=== PATIENT | male | born 1970 | race Caucasian/White ===

== ENCOUNTER 2017-08-18 03:14 | Inpatient (IN) | payer MEDICARE, OTHER ==
[~2017-08-18] VITALS: Ht 182.9 cm; Wt 110.7 kg
[~2017-08-18 03:14] MED LIST: CAPT12.53 PO; DIGO125T PO; FURO-145 PO; HYDR-4075 PO; INSU100V27 SQ; INSU100V7 SQ; ISOS30TA6 PO; METO25TA20 PO; SPIR25TA PO; WARF5TAB77 PO
--- NOTE | 2017-08-18 03:20 | NUR ---
PT AMULATORY TO ER BED 5 C/O "CP SINCE YESTERDAY AFTERNOON" PT STATES RECENTLY D/C FROM [facility] FOR PNA. PT AOX3 RR EVEN AND UNLABORED. NO SOB NOTED. NAD NOTED. NO NVD AT THIS TIME. PT GOWNED AND PLACED ON MONITOR WAITING FOR MD ALFARO.
--- NOTE | 2017-08-18 03:25 | NUR ---
DR. MEDINA AT BEDSIDE FOR EVAL.
[2017-08-18] MEDS ORDERED: MORPHINE SULFATE INJ 2 MG/ML DISP.SYRIN IV ONE (03:30)
[2017-08-18] MEDS ORDERED: ASPIRIN 325 MG TABLET PO ONE (03:30)
[2017-08-18] MEDS ORDERED: ONDANSETRON HCL/PF 4 MG/2 ML VIAL IVP ONE (03:30)
[2017-08-18] MEDS ORDERED: MORPHINE SULFATE INJ 4 MG/ML DISP.SYRIN ONE (03:48)
[2017-08-18] MEDS ORDERED: ONDANSETRON HCL/PF 4 MG/2 ML VIAL ONE (03:48)
[2017-08-18] MEDS ORDERED: ASPIRIN 325 MG TABLET ONE (03:49)
--- NOTE | 2017-08-18 03:53 | NUR ---
RADIOLOGY AT BEDSIDE FOR CXR
[2017-08-18 03:57] LABS: BASOPHILS % (AUTO) 0.5 % (0.0-2.0); EOSINOPHILS # (AUTO) 0.2 /CMM (0.0-0.7); EOSINOPHILS % (AUTO) 2.3 % (0.0-6.0); HEMATOCRIT 26 % (39-51); HEMOGLOBIN 9.1 g/dL (13.5-17.5); LYMPHOCYTES # (AUTO) 1.3 /CMM (0.8-4.8); LYMPHOCYTES % (AUTO) 15.3 % (20.0-44.0); MEAN CORPUSCULAR HEMOGLOBIN 30 PG (26.0-33.0); MEAN CORPUSCULAR HGB CONC 34 g/dl (31.0-36.0); MEAN CORPUSCULAR VOLUME 88 fL (80-96); MONOCYTES # (AUTO) 0.9 /CMM (0.1-1.30); MONOCYTES % (AUTO) 10.4 % (2.0-12.0); NEUTROPHILS # (AUTO) 6.2 /CMM (1.8-8.9); NEUTROPHILS % (AUTO) 71.5 % (43.0-81.0); PLATELET COUNT (AUTO) 228 /CMM (150-450); RDW COEFFICIENT OF VARIATION 16.7 (11.5-15.0); RED BLOOD CELL COUNT(AUTO) 2.99 MIL/uL (4.5-6.0); WHITE BLOOD COUNT (AUTO) 8.7 K/uL (4.3-11.0)
[2017-08-18 04:11] LABS: INR 1.1 (0.87-1.13)
[2017-08-18 04:12] LABS: ALBUMIN 2.9 g/dL (3.4-5.0); BILIRUBIN,DIRECT 0.2 mg/dL (0.0-0.2); BILIRUBIN,TOTAL 0.5 mg/dL (0.2-1.0); CALCIUM, SERUM 8.6 mg/dL (8.5-10.1); TOTAL PROTEIN, SERUM 7.8 g/dL (6.4-8.2)
[2017-08-18 04:15] LABS: TROPONIN I 0.045 ng/mL (0.00-0.056)
--- NOTE | 2017-08-18 05:26 | NUR ---
REPORT GIVEN TO YANNI HURLEY FOR TELE BED 322-1
[2017-08-18 06:10] VITALS: BP 121/77
--- NOTE | 2017-08-18 06:10 | NUR ---
PT TRANSFERRED PER ACLS PROTOCOL.
--- NOTE | 2017-08-18 06:15 | NUR ---
RN NOTES ADMITTED A 47 YRS OLD, MALE PT FROM ER WITH PRIMARY DIAGNOSIS OF CHEST PAIN UNDER DR LUIS. PT IS ALERT AND ORIENTED X3, LUISA NAUSEA AND VOMITING. CHEST PAIN AT TOLERABLE LEVEL AT THIS TIME. VITAL SIGNS STABLE. ATTACHED TO TELEMONITOR WHICH READS A. FIB AT 111. SKIN AND BODY ASSESSMENT DONE, SKIN CLEAR AND INTACT. 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 HD CATH ON LEFT UPPER CHEST WALL CLEAN, DRY AND INTACT. IV ACCESS ON LEFT AC PATENT AND INTACT. AWAITING FOR ADMISSION ORDERS FROM DR LUIS. KEPT COMFORTABLE AND ATTENDED. KEPT BED IN THE LOWEST POSITION, 2 SIDE RAILS UP WITH CALL LIGHT WITH IN REACH. SAFETY MEASURES AND FALL PRECAUTION OBSERVED. ENDORSED TO MORNING RN FOR CONTINUITY OF CARE.
--- NOTE | 2017-08-18 07:00 | NUR ---
RECEIVED BEDSIDE SBAR REPORT ON PATIENT. PATIENT IS A NEW ADMISSION. NO ADMISSION ORDERS YET. PATIENT COMPLAINS OF PAIN RATING 8/10 IN BLE AND LB. NO PAIN MEDICATIONS AVAILABLE AT THIS TIME. DR. MONROE MANAGER CUSTOM AT THE BEDSIDE. PATIENT'S BP ELEVATED AT 163/[address] MONROE INFORMED. AWAITING FOR ADMISSION ORDERS. PATIENT IS A/O X3, ANXIOUS, AWAKE AND RESPONSIVE. PATIENT IS BLIND ON RIGHT EYE AND HAS VERY POOR VISION IN L/EYE. PATIENT IS IN BED. BED IS LOCKED IN LOWEST POSITION, SIDE RAILS UP X3, BED ALARM IS ON. REINA LIGHT WITHIN REACH. EDUCATED TO CALL FOR ASSISTANCE USING THE CALL LIGHT. VERBALIZED UNDERSTANDING. ALL NEEDS ARE MET AT THIS TIME, WILL CONTINUE TO ASSESS/MONITOR THROUGHOUT THE SHIFT.
--- NOTE | 2017-08-18 07:10 | NUR ---
ADMISSION ORDERS MISSING. CALLED DR LUIS FOR ADMISSION ORDERS.
[2017-08-18 08:00] VITALS: BP 163/108
[2017-08-18] MEDS ORDERED: HYDROCODONE/APAP 5/325MG 1 EACH TABLET PO PRN (08:00)
[2017-08-18] MEDS ORDERED: ONDANSETRON HCL/PF 4 MG/2 ML VIAL IVP PRN (08:00)
[2017-08-18] MEDS ORDERED: ZOLPIDEM TARTRATE 5 MG TABLET PO PRN (08:00)
[2017-08-18] MEDS ORDERED: INSULIN REGULAR, HUMAN 100 UNIT/ML 3 ML VIAL SQ PRN (08:00)
[2017-08-18] MEDS ORDERED: ACETAMINOPHEN 325 MG TABLET PO PRN (08:00)
[2017-08-18] MEDS ORDERED: DEXTROSE 50%-WATER 50 ML DISP.SYRIN IV PRN (08:00)
[2017-08-18] MEDS ORDERED: Z GUARD REMEDY 2 OZ OINT TP PRN (08:00)
[2017-08-18] MEDS ORDERED: MORPHINE SULFATE INJ 2 MG/ML DISP.SYRIN IV PRN (08:00)
[2017-08-18] MEDS ORDERED: MAG HYDROX/AL HYDROX/SIMETH 30 ML UDC PO PRN (08:00)
[2017-08-18] MEDS ORDERED: MAGNESIUM HYDROXIDE 30 ML UDC PO PRN (08:00)
[2017-08-18 08:26] LABS: MAGNESIUM 2.1 mg/dL (1.8-2.4)
[2017-08-18 08:42] LABS: THYROID STIMULATING HORMONE 0.626 uIU/mL (0.358-3.74)
[2017-08-18] MEDS ORDERED: FUROSEMIDE 20 MG TABLET PO SCH ×2 (09:00)
[2017-08-18] MEDS ORDERED: CAPTOPRIL 12.5 MG TABLET PO SCH ×2 (09:00)
[2017-08-18] MEDS ORDERED: SPIRONOLACTONE 25 MG TABLET PO SCH ×2 (09:00)
[2017-08-18] MEDS ORDERED: DIGOXIN 0.125 MG TABLET PO SCH ×2 (09:00)
[2017-08-18] MEDS ORDERED: METOPROLOL TARTRATE 25 MG TABLET PO SCH ×2 (09:00)
[2017-08-18] MEDS ORDERED: hydrALAZINE HCL 10 MG TABLET PO SCH (09:00)
[2017-08-18] MEDS ORDERED: INSULIN LISPRO 14 UNIT SQ SCH ×2 (09:00)
[2017-08-18] MEDS ORDERED: ISOSORBIDE MONONITRATE (30MG) 30 MG TAB.SR.24H PO SCH ×2 (09:00)
[2017-08-18] MEDS: BLOOD SUGAR DIAGNOSTIC 1 EACH STRIP IN SCH ×4 (09:22→22:30)
[2017-08-18] MEDS: hydrALAZINE HCL 10 MG TABLET PO SCH ×4 (09:23→20:33)
[2017-08-18] MEDS: MORPHINE SULFATE INJ 4 MG/ML DISP.SYRIN IV PRN ×2 (09:27→20:33)
--- NOTE | 2017-08-18 09:33 | NUR ---
BG 134 MG DL. PATIENT REFUSED COVERAGE. PATIENT COMPLAINED OF SEVERE PAIN THROUGHOUT THE BODY. PRN PAIN MEDICATION ADMINISERED ORDERED. WILL REASSESS THE PAIN LEVEL.
[2017-08-18] MEDS ORDERED: CALC667C6 PO (09:38)
[2017-08-18] MEDS ORDERED: ISOS5TAB3 PO (09:38)
[2017-08-18] MEDS ORDERED: APIX2.5T PO (09:38)
[2017-08-18] MEDS ORDERED: OSEL30CA PO (09:38)
[2017-08-18] MEDS ORDERED: CARV25TA PO (09:38)
[2017-08-18] MEDS ORDERED: ATOR40TA PO (09:38)
[2017-08-18] MEDS ORDERED: ASPI-1152 PO (09:38)
[2017-08-18] MEDS: APIXABAN 2.5 MG TABLET PO SCH ×2 (12:08→18:15)
--- NOTE | 2017-08-18 12:33 | NUR ---
PATIENT COMPLAINED OF ACUTE SEVERE PAIN. NORCO ADMINISTERED ORDERED.
[2017-08-18] MEDS ORDERED: EPOETIN ALFA (10,000 UNIT) 10,000 UNIT/ML VIAL SQ ONE ×2 (14:00→17:30)
[2017-08-18 16:00] VITALS: BP 147/86
--- NOTE | 2017-08-18 17:30 | NUR ---
HD AT THE BEDSIDE.
[2017-08-18] MEDS ORDERED: WARFARIN SODIUM 5 MG TABLET PO SCH (18:00)
--- NOTE | 2017-08-18 18:23 | NUR ---
BG 131MG/DL. PATIENT REFUSED COVERAGE.
--- NOTE | 2017-08-18 18:47 | NUR ---
PATIENT IS A/O X3, ANXIOUS, AWAKE AND RESPONSIVE. HEMODIALYSIS AT THE BEDSIDE. PATIENT IS BLIND ON RIGHT EYE AND HAS VERY POOR VISION IN L/EYE. PATIENT IS IN BED. BED IS LOCKED IN LOWEST POSITION, SIDE RAILS UP X3, BED ALARM IS ON. REINA LIGHT WITHIN REACH. EDUCATED TO CALL FOR ASSISTANCE USING THE CALL LIGHT. VERBALIZED UNDERSTANDING. ALL NEEDS ARE MET AT THIS TIME, WILL ENDORSE TO THE CLINICAL RESEARCH MONITOR NURSE FOR LYRIC.
--- NOTE | 2017-08-18 19:30 | NUR ---
RN OPENING NOTE RECEIVED PATIENT IN BED, JUST COMPLETED HEMODIALYSIS, NOTED WITH NO SOB, BREATHING EVEN AND UNLABORED, DENIES CHEST PAIN, IN NO ACUTE DISTRESS. ALL PATIENT'S NEEDS ATTENDED TO AT THIS TIME. CALL LIGHT PLACED WITHIN EASY REACH. WILL CONTINUE TO MONITOR PT.
[2017-08-18 20:00] VITALS: BP 168/99
[2017-08-18] MEDS: INSULIN GLARGINE, 100 UNIT/ML CARTRIDGE SQ SCH (22:00)
[2017-08-18] MEDS ORDERED: INSULIN GLARGINE HUM REC ANLOG 35 UNIT SQ SCH (22:00)
[2017-08-18] MEDS ORDERED: ALPRAZOLAM 0.25 MG TABLET ONE (22:28)
[2017-08-18] MEDS ORDERED: ALPRAZOLAM 0.25 MG TABLET PO ONE (22:30)
--- NOTE | 2017-08-18 22:30 | NUR ---
RN NOTE PATIENT REFUSED REG INSULIN PER [facility] MEDICATION. EXPLAINED RISKS AND BENEFITS TO PATIENT X 3 BUT PATIENT CONTINUES TO REFUSE MEDICATION. PER PATIENT HIS DM IS CONTROLLED. RESPECTED PATIENT'S DECISION. WILL CONTINUE TO MONITOR.
[2017-08-19] VITALS: BP 125/75
[2017-08-19 04:00] VITALS: BP 151/84
[2017-08-19] MEDS: MORPHINE SULFATE INJ 4 MG/ML DISP.SYRIN IV PRN ×2 (04:04→10:47)
--- NOTE | 2017-08-19 05:43 | NUR ---
PT RF AT THIS TIME EKG, YANNI SALCEDO
--- NOTE | 2017-08-19 05:47 | NUR ---
RN NOTE SPOKE WITH ZAC ROTHMAN, PATIENT REFUSED EKG AT THIS TIME. WILL SEND SOMEONE ELSE IN THE DAY SHIFT.
--- NOTE | 2017-08-19 07:20 | NUR ---
RN CLOSING NOTES PATIENT IN BED, ALERT AND ORIENTED X 3, NO SOB NOTED, NO C/O PAIN, IN NO ACUTE DISTRESS. AL PATIENT'S NEEDS ATTENDED TO THROUGHOUT THE SHIFT, DUE MEDICATION GIVEN PERMITTED BY PATIENT. CALL LIGHT PLACED WITHIN EASY REACH. PATIENT UNDER TELE MONITORING, SINUS TACHY @ 107. WILL ENDORSE TO AM SHIFT NURSE FOR CONTINUITY OF CARE.
--- NOTE | 2017-08-19 07:28 | NUR ---
CHIP CRUSHER OPERATOR NOTE RECEIVED BEDSIDE SBAR REPORT ON PATIENT. PATIENT IS A/O X3, ANXIOUS, AWAKE AND RESPONSIVE. PATIENT IS IN BED. BED IS LOCKED IN LOWEST POSITION, SIDE RAILS UP X3, BED ALARM IS ON. FORM RAISER AT THE BEDSIDE. REINA LIGHT WITHIN REACH. EDUCATED TO CALL FOR ASSISTANCE USING THE CALL LIGHT. VERBALIZED UNDERSTANDING. ALL NEEDS ARE MET AT THIS TIME. EXTERNAL HEART MONITOR READING AFIB 113. WILL CONTINUE TO ASSESS/MONITOR THROUGHOUT THE SHIFT.
[2017-08-19] MEDS: BLOOD SUGAR DIAGNOSTIC 1 EACH STRIP IN SCH ×4 (07:31→21:30)
--- NOTE | 2017-08-19 07:56 | NUR ---
DOCUMENTED ALPRAZOLAM FROM PREVIOUS SHIFT NON-ADMINISTERED TO RID OF THE RED POST-DUE REMINDER.
[2017-08-19 08:00] VITALS: BP 140/90
[2017-08-19 08:48] LABS: BASOPHILS # (AUTO) 0.1 /CMM (0.0-0.2); BASOPHILS % (AUTO) 0.8 % (0.0-2.0); EOSINOPHILS # (AUTO) 0.2 /CMM (0.0-0.7); EOSINOPHILS % (AUTO) 2.4 % (0.0-6.0); HEMATOCRIT 28 % (39-51); HEMOGLOBIN 9.7 g/dL (13.5-17.5); LYMPHOCYTES # (AUTO) 1.5 /CMM (0.8-4.8); LYMPHOCYTES % (AUTO) 20.4 % (20.0-44.0); MEAN CORPUSCULAR HEMOGLOBIN 31 PG (26.0-33.0); MEAN CORPUSCULAR HGB CONC 34 g/dl (31.0-36.0); MEAN CORPUSCULAR VOLUME 89 fL (80-96); MONOCYTES # (AUTO) 0.8 /CMM (0.1-1.30); MONOCYTES % (AUTO) 10.2 % (2.0-12.0); NEUTROPHILS # (AUTO) 4.9 /CMM (1.8-8.9); NEUTROPHILS % (AUTO) 66.2 % (43.0-81.0); PLATELET COUNT (AUTO) 196 /CMM (150-450); RDW COEFFICIENT OF VARIATION 16.9 (11.5-15.0); RED BLOOD CELL COUNT(AUTO) 3.19 MIL/uL (4.5-6.0); WHITE BLOOD COUNT (AUTO) 7.4 K/uL (4.3-11.0)
[2017-08-19 09:05] LABS: TROPONIN I 0.039 ng/mL (0.00-0.056)
[2017-08-19 09:07] LABS: ALBUMIN 2.9 g/dL (3.4-5.0); BILIRUBIN,TOTAL 0.7 mg/dL (0.2-1.0); CALCIUM, SERUM 9.3 mg/dL (8.5-10.1); PHOSPHORUS 5.7 mg/dL (2.5-4.9); POTASSIUM 4.2 mmol/L (3.5-5.1)
[2017-08-19 10:03] VITALS: BP 140/90
[2017-08-19] MEDS: hydrALAZINE HCL 10 MG TABLET PO SCH ×4 (10:42→20:36)
[2017-08-19] MEDS: CARVEDILOL 12.5 MG TABLET PO SCH ×2 (10:42→20:36)
[2017-08-19] MEDS: APIXABAN 2.5 MG TABLET PO SCH ×2 (10:44→17:49)
--- NOTE | 2017-08-19 10:53 | NUR ---
PATIENT COMPLAINED OF SEVERE GENERALIZED PAIN. MORPHINE ADMINISTERED PRESCRIBED.
--- NOTE | 2017-08-19 11:18 | NUR ---
HEMODIALYSIS AT THE BEDSIDE.
--- NOTE | 2017-08-19 12:50 | NUR ---
BG 146 mg/dl. Refused coverage.
--- NOTE | 2017-08-19 13:08 | NUR ---
Refused Hydralazine. Hemodialysis at the bedside.
[2017-08-19] MEDS: HYDROMORPHONE INJ 0.5 MG/0.5 ML SYRINGE IV PRN ×4 (15:34→21:23)
--- NOTE | 2017-08-19 15:41 | NUR ---
Patient complains of severe pain in low back and BLE. Diluded administered as prescribed.
--- NOTE | 2017-08-19 17:49 | NUR ---
Patient refused coverage. BG 160mg/dL
--- NOTE | 2017-08-19 19:29 | NUR ---
MODERN AND CONTEMPORARY ART CURATOR CLOSING NOTE PATIENT IN BED. BED IS LOCKED IN LOWEST POSITION, SIDE RAILS UP X3, BED ALARM IS ON. REINA LIGHT WITHIN REACH. EDUCATED TO CALL FOR ASSISTANCE USING THE CALL LIGHT. VERBALIZED UNDERSTANDING. ALL NEEDS ARE MET AT THIS TIME. EXTERNAL HEART MONITOR READING AFIB 97. WILL ENDORSE TO THE TECHNOLOGY ADVISOR FOR LYRIC.
[2017-08-19 20:00] VITALS: BP 131/68
--- NOTE | 2017-08-19 20:00 | NUR ---
TELE MACHINE GROUP LEADER INITIAL NOTES RECEIVED PT IN BED ON SITTING POSITION WHILE TALKING TO SOMEONE ON HIS CELLPHONE. NO SOB NOTED. NO SIGNS OF ANY ACUTE DISTRESS BUT COMPLAINING OF GENERALIZED PAIN. NO N/V NOTED. KEPT HIM WARM AD COMFORTABLE AT ALL TIMEA. PLACE CALL LIGHT AT REACH. WILL CONTINUE TO MONITOR.PLACE CALL LIGHT AT REACH. TELE AFIB PER MONITOR.
--- NOTE | 2017-08-19 20:54 | NUR ---
tele/rn notes patient iv dilaudid wasted due to leaking iv site, when patient moved, teddy cadena made aware/confirmed. patient refused to have iv reinserted and requested po meds instead.
--- NOTE | 2017-08-19 21:41 | NUR ---
tele/rn notes iv reinforced by rn matt, teddy cadena as witnessed for iv dilaudid and patency check, administered and patient tolerated.
[2017-08-19] MEDS: INSULIN GLARGINE, 100 UNIT/ML CARTRIDGE SQ SCH (22:00)
[2017-08-20] VITALS: BP_SYST 113; BP_SYST 127; BP_DIAS 67
[2017-08-20] MEDS: HYDROMORPHONE INJ 0.5 MG/0.5 ML SYRINGE IV PRN ×2 (01:32→05:11)
--- NOTE | 2017-08-20 01:35 | NUR ---
TELE/RN NOTES Patient observed grimace, guarding and moaning and WOOL FLEECE SORTERMyles cadena made aware, IV dilaudid per md order administered, able to flush iv site and patient tolerate procedure will monitor effectiveness.
[2017-08-20 04:00] VITALS: BP 115/77
[2017-08-20 05:14] LABS: *SPE A/G RATIO 0.9 (0.7-1.7); *SPE ALBUMIN 3.4 g/dL (2.9-4.4); *SPE ALPHA-1-GLOBULIN 0.3 g/dL (0.0-0.4); *SPE ALPHA-2-GLOBULIN 0.8 g/dL (0.4-1.0); *SPE BETA GLOBULIN 1.2 g/dL (0.7-1.3); *SPE GLOBULIN, TOTAL 3.8 g/dL (2.2-3.9); *SPE M-SPIKE Not Observed g/dL (Not Observed); *SPEGAMMA GLOBULIN 1.5 g/dL (0.4-1.8)
[2017-08-20 06:00] VITALS: BP 115/77
--- NOTE | 2017-08-20 07:00 | NUR ---
TELE INFANTRY WEAPONS OFFICER CLOSING NOTES PT REMAIN RESTING AFTER PAIN MEDICATION GIVEN THIS AM . REST WELL, NO N/V NOTED. ALL DUE MEDS GIVEN AND ALL NEEDS MET. TELE A-FIB 87 PER MONITOR. NO SIGNS OF ANY ACUTE DISTRESS NOTED. KEPT HIM WARM AND COMFORTABLE AT ALL TIMES. PLACE CALL LIGHT AT REACH.ENDORSE TO AM NURSE FOR CONTINUITY OF CARE.
--- NOTE | 2017-08-20 07:05 | NUR ---
RN NOTES: PATIENT RESTING IN BED. NONLABORED BREATHING NOTED. NO SIGNS OF DISTRESS. IV SITE ON LEFT AC PATENT AND INTACT. PATIENT DENIES PAIN. PATIENT ON TELE MONITORING WITH AFIB 101. BED IN LOWEST LOCKED POSITION. CALL LIGHT WITHIN REACH. WILL CONTINUE TO MONITOR
[2017-08-20] MEDS: BLOOD SUGAR DIAGNOSTIC 1 EACH STRIP IN SCH ×2 (07:30→12:00)
[2017-08-20 08:00] VITALS: BP 150/84
[2017-08-20] MEDS: CARVEDILOL 12.5 MG TABLET PO SCH (08:57)
[2017-08-20] MEDS: APIXABAN 2.5 MG TABLET PO SCH (08:57)
[2017-08-20] MEDS: hydrALAZINE HCL 10 MG TABLET PO SCH ×2 (10:00→13:00)
--- NOTE | 2017-08-20 12:24 | NUR ---
RN NOTES: PATIENT REFUSED BLOOD SUGAR CHECKS. BENEFITS AND RISKS EXPLAINED. PATIENT ATE LUNCH
[2017-08-20 13:00] VITALS: BP 142/82
--- NOTE | 2017-08-20 13:55 | NUR ---
RN NOTES: PATIENT REFUSED HYDRALAZINE. PATIENTS BP DISCUSSED WITH PATIENT. BENEFITS AND RISKS AT LENGTH. PATIENT STILL REFUSED STATING THAT HE FEELS DIZZY AFTER THE MEDICATIONS. PATIENT OFFERED SNACKS. HE STATES THAT HE JUST WANTS TO REST
[2017-08-20] MEDS ORDERED: CARV12.52 PO (14:22)
[2017-08-20] MEDS ORDERED: HYDR-4075 PO (14:22)
--- NOTE | 2017-08-20 16:00 | NUR ---
RN NOTES: PATIENT CHECKED ON AT 1530 BY DOCUMENT CONTROL ASSOCIATE. PATIENT NOTED TO NOT BE IN ROOM AT 1540. SECURITY CALLED AND PATIENT FOUND TO BE AT EXIST OF HOSPITAL. EXISTCARE AND FOLLOW UP WITH DR MONROE AND DR DIAZ GIVEN TO PATIENT. PATIENT TOOK OUT IV LINE, BOTH UPPER EXTREMITIES CHECKED IN FRONT OF SECURITY,DRESSING ON HIS LCW PERMENANT CATHETER INTACT AND PATENT. NO SIGNS OF BLEEDING AT IV SITE. PATIENT VERBALIZED UNDERSTANDING OF INSTRUCTIONS. ALL VALUABLES GIVEN TO PATIENT INCLUDING CELLPHONE. PATIENT REFUSED SKIN ASSESSMENT EARLIER, BENEFITS AND RISKS EXPLAINED. PATIENT REFUSED VACCINES WELL. PATIENT STABLE. NONLABORED BREATHING ON ROOM AIR AND IS AMBULATING. PATIENT LEFT VIA UBER, REFUSING TO BE ACCOMPANIED TO DOOR OF CAR TELE BOX RETURNED TO TELE MONITORED EARLIER IN THE DAY
--- NOTE | 2017-08-20 16:01 | NUR ---
RN NOTES: PATIENT CHECKED ON AT 1530 BY SALESPERSON NEW CARS. PATIENT NOTED TO NOT BE IN ROOM AT 1540. SECURITY CALLED AND PATIENT FOUND TO BE AT EXIST OF HOSPITAL. EXISTCARE AND FOLLOW UP WITH DR MONROE AND DR DIAZ GIVEN TO PATIENT. PATIENT TOOK OUT IV LINE, BOTH UPPER EXTREMITIES FULLY CHECKED IN FRONT OF SECURITY,DRESSING ON HIS LCW PERMENANT CATHETER INTACT AND PATENT. NO SIGNS OF BLEEDING AT IV SITE. PATIENT VERBALIZED UNDERSTANDING OF INSTRUCTIONS. ALL VALUABLES GIVEN TO PATIENT INCLUDING CELLPHONE. PATIENT REFUSED SKIN ASSESSMENT EARLIER, BENEFITS AND RISKS EXPLAINED. PATIENT REFUSED VACCINES WELL. PATIENT STABLE. NONLABORED BREATHING ON ROOM AIR AND IS AMBULATING. PATIENT LEFT VIA UBER, REFUSING TO BE ACCOMPANIED TO DOOR OF CAR TELE BOX RETURNED TO TELE MONITORED EARLIER IN THE DAY
== END 2017-08-20 15:45 | disposition home or self-care (01) | DRG 302 ==
LOC: ER 03:18 → TELE 05:23 → MED 08-20 09:35
PROVIDERS: ADMIT Internal Medicine; ATTEND Internal Medicine
PROC: 5A1D70Z Performance of Urinary Filtration, Intermittent, Less than 6 Hours Per Day (ICD-10-PCS; principal; 2017-08-18)
PROC: 5A1D70Z Performance of Urinary Filtration, Intermittent, Less than 6 Hours Per Day (ICD-10-PCS; 2017-08-19)
DX: I25.119 Atherosclerotic heart disease of native coronary artery with unspecified angina pectoris (principal); N18.6 End stage renal disease; I13.2 Hypertensive heart and chronic kidney disease with heart failure and with stage 5 chronic kidney disease, or end stage renal disease; E11.22 Type 2 diabetes mellitus with diabetic chronic kidney disease; D68.59 Other primary thrombophilia; I42.9 Cardiomyopathy, unspecified; E83.9 Disorder of mineral metabolism, unspecified; I50.43 Acute on chronic combined systolic (congestive) and diastolic (congestive) heart failure; I48.1 Persistent atrial fibrillation; F17.210 Nicotine dependence, cigarettes, uncomplicated; Z79.01 Long term (current) use of anticoagulants; Z79.4 Long term (current) use of insulin; D64.9 Anemia, unspecified; E78.5 Hyperlipidemia, unspecified; Z71.6 Tobacco abuse counseling; Z99.2 Dependence on renal dialysis
CPT/HCPCS: 36415; 71045-TC; 80048-TC; 80053-TC; 80061-TC; 80076-TC; 82306; 82728-TC; 82962-TC; 83540-TC; 83735-TC; 84100-TC; 84155; 84165; 84439-TC; 84443-TC; 84484-TC; 85025-TC; 85730-TC; 87081-TC; 90935-TC; 93307-TC; A4606; J0885; J1815; J2270; J2405; Z7610

== ENCOUNTER 2017-08-26 11:26 | Inpatient (IN) | payer MEDICARE, OTHER ==
[~2017-08-26] VITALS: Ht 182.9 cm; Wt 104.3 kg
[~2017-08-26 11:26] MED LIST changes: +APIX2.5T PO; +ASPI-1152 PO; +ATOR40TA PO; +CALC667C6 PO; -CAPT12.53 PO; +CARV12.52 PO; -DIGO125T PO; -FURO-145 PO; -INSU100V27 SQ; -ISOS30TA6 PO; +ISOS5TAB3 PO; -METO25TA20 PO; -SPIR25TA PO; -WARF5TAB77 PO
--- NOTE | 2017-08-26 11:40 | NUR ---
PT CAME IN FOR SYNCOPAL EPISODE AT HOME WHILE TALKING A SHOWER. PT STATES FALLING IN SHWOER. DENIES HEAD/NECK TRAUMA. VSS. PT AAOX3. DENIES LOC. SEEN BY MD FOR EVAL. SAFETY AND COMFORT MEASURES PROVIDED. WILL MONITOR.
[2017-08-26] MEDS ORDERED: ASPIRIN 81 MG TAB.CHEW PO ONE (12:00)
[2017-08-26] MEDS ORDERED: ASPIRIN 325 MG TABLET ONE (12:08)
[2017-08-26] MEDS ORDERED: ONDANSETRON HCL/PF 4 MG/2 ML VIAL ONE (12:08)
[2017-08-26] MEDS ORDERED: HYDROMORPHONE INJ 2 MG/ML DISP.SYRIN ONE (12:08)
[2017-08-26 12:10] LABS: BASOPHILS % (AUTO) 0.5 % (0.0-2.0); EOSINOPHILS # (AUTO) 0.1 /CMM (0.0-0.7); EOSINOPHILS % (AUTO) 2.1 % (0.0-6.0); HEMATOCRIT 28 % (39-51); HEMOGLOBIN 9.4 g/dL (13.5-17.5); LYMPHOCYTES # (AUTO) 1.4 /CMM (0.8-4.8); MEAN CORPUSCULAR HEMOGLOBIN 30 PG (26.0-33.0); MEAN CORPUSCULAR HGB CONC 34 g/dl (31.0-36.0); MEAN CORPUSCULAR VOLUME 88 fL (80-96); MONOCYTES # (AUTO) 0.6 /CMM (0.1-1.30); MONOCYTES % (AUTO) 8.6 % (2.0-12.0); NEUTROPHILS # (AUTO) 4.4 /CMM (1.8-8.9); NEUTROPHILS % (AUTO) 66.8 % (43.0-81.0); PLATELET COUNT (AUTO) 206 /CMM (150-450); RDW COEFFICIENT OF VARIATION 15.2 (11.5-15.0); RED BLOOD CELL COUNT(AUTO) 3.16 MIL/uL (4.5-6.0); WHITE BLOOD COUNT (AUTO) 6.5 K/uL (4.3-11.0)
--- NOTE | 2017-08-26 12:15 | NUR ---
IV ACCESS STARTED. BLOOD DRAWN FOR LABS. MEDICATED ORDERED.
[2017-08-26 12:23] LABS: CALCIUM, SERUM 8.6 mg/dL (8.5-10.1); INR 1.1 (0.85-1.15); POTASSIUM 4.6 mmol/L (3.5-5.1)
[2017-08-26 12:28] LABS: TROPONIN I 0.033 ng/mL (0.00-0.056)
[2017-08-26] MEDS ORDERED: ONDANSETRON HCL/PF 4 MG/2 ML VIAL IV ONE (12:30)
[2017-08-26] MEDS ORDERED: HYDROMORPHONE INJ 0.5 MG/0.5 ML SYRINGE IV ONE (12:30)
[2017-08-26 12:33] LABS: CREATININE 10.1 mg/dL (0.6-1.3)
--- NOTE | 2017-08-26 13:05 | NUR ---
CALLED [facility] FOR PANEL
--- NOTE | 2017-08-26 13:09 | NUR ---
CALLED NURSE SUP FOR TELE BED
[2017-08-26] MEDS ORDERED: ACETAMINOPHEN 325 MG TABLET PO PRN (13:30)
[2017-08-26] MEDS ORDERED: MAG HYDROX/AL HYDROX/SIMETH 30 ML UDC PO PRN (13:30)
[2017-08-26] MEDS ORDERED: MAGNESIUM HYDROXIDE 30 ML UDC PO PRN (13:30)
[2017-08-26] MEDS ORDERED: *INSULIN REGULAR(HUMULIN R)HUM 100 UNIT/ML VIAL SQ PRN (13:30)
[2017-08-26] MEDS ORDERED: DEXTROSE 50%-WATER 50 ML DISP.SYRIN IV PRN (13:30)
[2017-08-26] MEDS ORDERED: Z GUARD REMEDY 2 OZ OINT TP PRN (13:30)
[2017-08-26] MEDS ORDERED: HYDROCODONE/APAP 5/325MG 1 EACH TABLET PO PRN (13:30)
[2017-08-26] MEDS: HYDROMORPHONE INJ 0.5 MG/0.5 ML SYRINGE IV PRN ×3 (14:58→23:49)
--- NOTE | 2017-08-26 15:00 | NUR ---
MS RN ADMITTED A 47 YEAR OLD MALE, CAME IN TO ER FOR CHEST PAIN, DIALYSIS PATIENT, AWAKE,ALERT,ORIENTED X4,NOT IN ANY FORM OF DISTRESS, RESPIRATIONS EVEN AND UNLABORED, ABDOMEN SOFT,POSITIVE BOWEL SOUNDS, DENIES PAIN AT THIS TIME, WILL MONITOR PATIENT'S CONDITION.
[2017-08-26] MEDS: ONDANSETRON HCL/PF 4 MG/2 ML VIAL IVP PRN ×2 (15:05→23:44)
[2017-08-26] MEDS: CALCIUM ACETATE 667 MG TABLET PO SCH ×2 (15:09→17:30)
[2017-08-26] MEDS: hydrALAZINE HCL 10 MG TABLET PO SCH ×2 (17:00→23:40)
[2017-08-26] MEDS: ISOSORBIDE DINITRATE (5MG) 5 MG TABLET PO SCH (17:00)
--- NOTE | 2017-08-26 17:00 | NUR ---
MS RN DUE MEDS GIVEN,TOLERATED WELL.
[2017-08-26] MEDS: BLOOD SUGAR DIAGNOSTIC 1 EACH STRIP VI SCH ×2 (17:30→23:32)
[2017-08-26] MEDS: INSULIN REGULAR, HUMAN 100 UNIT/ML 3 ML VIAL SQ PRN (17:32)
--- NOTE | 2017-08-26 18:33 | NUR ---
MS RN ON BED, NO DISTRESS NOTED,ALL NEEDS ATTENDED.
[2017-08-26] MEDS: APIXABAN 2.5 MG TABLET PO SCH (18:40)
--- NOTE | 2017-08-26 19:15 | NUR ---
RN NOTES RECEIVED PATIENT SITTING UP IN BED, BREATHING EVEN AND UNLABORED, NO SOB, IN NO ACUTE DISTRESS, WITH NO C/O PAIN AT THIS TIME. PATIENT UNDER TELE MONITORING AFIB @ 98 BPM. ALL PATIENT'S NEEDS ATTENDED TO AT THIS TIME, CALL LIGHT PLACED WITHIN EASY REACH. WILL CONTINUE TO MONITOR.
[2017-08-26 20:00] VITALS: BP 126/98
--- NOTE | 2017-08-26 20:15 | NUR ---
RN NOTE PATIENT STARTED ON HEMODIALYSIS. DIALYSIS NURSE, PHILLIP AT BEDSIDE. WILL CONTINUE TO MONITOR PT.
[2017-08-26] MEDS: CARVEDILOL 12.5 MG TABLET PO SCH (20:48)
[2017-08-26] MEDS ORDERED: ZOLPIDEM TARTRATE 5 MG TABLET PO PRN (22:00)
--- NOTE | 2017-08-26 23:23 | NUR ---
RN NOTE HEMODIALYSIS COMPLETED, 2000 ML OUT.
[2017-08-26] MEDS: ATORVASTATIN 40 MG TABLET PO SCH (23:31)
[2017-08-27] VITALS: BP 149/95
[2017-08-27 04:00] VITALS: BP 155/98
--- NOTE | 2017-08-27 06:30 | NUR ---
RN NOTE PATIENT REFUSED BLOOD DRAW, ACCUCHECK AND ZOFRAN DOSE. EXPLAINED RISKS TO PATIENT BUT PATIENT CONTINUES TO REFUSE. RESPECTED PATIENT'S DECISION. PER PATIENT, HE WANTS TO SLEEP AND WOULD LIKE EVERYTHING AT BREAKFAST TIME. PATIENT IS ALERT AND ORIENTED X 4, NO SOB NOTED, BREATHING EVEN AND UNLABORED, NO C/O PAIN AT THIS TIME AND IS IN NO ACUTE DISTRESS. CALL LIGHT PLACED WITHIN EASY REACH. WILL ENDORSE TO AM SHIFT NURSE FOR CONTINUITY OF CARE.
--- NOTE | 2017-08-27 07:10 | NUR ---
MS/RN OPENING NOTE RECEIVED PATIENT IN BED AWAKE. ALERT AND ORIENTED X4. RESPIRATION REGULAR AND UNLABORED. DENIES SOB, PAIN AT THIS TIME. IN NO APPARENT DISTRESS. LAC G 20 PATENT. PATIENT REMAINS NPO. BED LOW AND LOCKED. SIDE RAILS UP X2. CALL LIGHT WITHIN REACH. WILL CONTINUE TO MONITOR.
[2017-08-27] MEDS: BLOOD SUGAR DIAGNOSTIC 1 EACH STRIP VI SCH ×4 (07:30→22:00)
--- NOTE | 2017-08-27 07:30 | NUR ---
TELE/RN NOTE PATIENT REFUSED BLOOD SUGAR CHECK DESPITE EXPLAINING RISKS AND BENEFITS. THE PATIENT`S REASON " ANYWAY I AM NOT EATING." WILL CONTINUE TO MONITOR.
[2017-08-27] MEDS: ONDANSETRON HCL/PF 4 MG/2 ML VIAL IVP PRN ×3 (07:58→17:46)
[2017-08-27] MEDS: HYDROMORPHONE INJ 0.5 MG/0.5 ML SYRINGE IV PRN ×4 (07:58→22:13)
[2017-08-27 08:00] VITALS: BP 147/98
[2017-08-27] MEDS: CALCIUM ACETATE 667 MG TABLET PO SCH ×3 (08:00→17:42)
[2017-08-27 08:42] LABS: BASOPHILS % (AUTO) 0.1 % (0.0-2.0); EOSINOPHILS # (AUTO) 0.2 /CMM (0.0-0.7); EOSINOPHILS % (AUTO) 2.1 % (0.0-6.0); HEMATOCRIT 29 % (39-51); HEMOGLOBIN 9.7 g/dL (13.5-17.5); LYMPHOCYTES # (AUTO) 1.2 /CMM (0.8-4.8); LYMPHOCYTES % (AUTO) 16.3 % (20.0-44.0); MEAN CORPUSCULAR HEMOGLOBIN 30 PG (26.0-33.0); MEAN CORPUSCULAR HGB CONC 34 g/dl (31.0-36.0); MEAN CORPUSCULAR VOLUME 89 fL (80-96); MONOCYTES # (AUTO) 0.6 /CMM (0.1-1.30); MONOCYTES % (AUTO) 8.2 % (2.0-12.0); NEUTROPHILS # (AUTO) 5.3 /CMM (1.8-8.9); NEUTROPHILS % (AUTO) 73.3 % (43.0-81.0); PLATELET COUNT (AUTO) 193 /CMM (150-450); RED BLOOD CELL COUNT(AUTO) 3.21 MIL/uL (4.5-6.0); WHITE BLOOD COUNT (AUTO) 7.3 K/uL (4.3-11.0)
[2017-08-27 09:03] LABS: CALCIUM, SERUM 9.1 mg/dL (8.5-10.1); MAGNESIUM 2.4 mg/dL (1.8-2.4); PHOSPHORUS 6.6 mg/dL (2.5-4.9); POTASSIUM 4.7 mmol/L (3.5-5.1)
[2017-08-27 12:00] VITALS: BP_SYST 122; BP_SYST 170; BP_DIAS 105; BP_DIAS 71
[2017-08-27] MEDS: ASPIRIN EC 81 MG TABLET.DR PO SCH (12:14)
[2017-08-27] MEDS: hydrALAZINE HCL 10 MG TABLET PO SCH ×4 (12:15→21:00)
[2017-08-27] MEDS: CARVEDILOL 12.5 MG TABLET PO SCH ×2 (12:16→22:13)
[2017-08-27] MEDS: ISOSORBIDE DINITRATE (5MG) 5 MG TABLET PO SCH ×3 (12:16→17:45)
[2017-08-27] MEDS: APIXABAN 2.5 MG TABLET PO SCH ×2 (12:18→17:42)
[2017-08-27 16:00] VITALS: BP 135/90
--- NOTE | 2017-08-27 19:20 | NUR ---
RN OPENING NOTES RECEIVED PT SITTING UP IN BED, AWAKE, ALERT AND ORIENTED X 4, NO SOB NOTED, BREATHING EVEN AND UNLABORED, DENIES CHEST PAIN, VERBALIZED THAT HIS CURRENT PAIN MEDICATION IS NOT EFFECTIVE, EXPLAINED THE RISKS AND BENEFITS TO PATIENT AND THAT I WILL CALL SAND TECHNICIAN MD/CREDIT SUPPORT SPECIALIST. PT IS IN NO ACUTE DISTRESS, ALL PATIENT'S NEEDS ATTENDED TO AT THIS TIME. CALL LIGHT PLACED WITHIN EASY REACH. WILL CONTINUE TO MONITOR.
[2017-08-27 20:00] VITALS: BP 116/71
[2017-08-27] MEDS ORDERED: HYDROMORPHONE 1 MG/1 ML DISP.SYRIN IV PRN (21:00)
[2017-08-27] MEDS: ATORVASTATIN 40 MG TABLET PO SCH (22:13)
--- NOTE | 2017-08-27 22:17 | NUR ---
RN NOTE PATIENT REFUSED ACCUCHECK. PT VERBALIZED THAT IT HAS BEEN AROUND 100 FOR A WEEK AND DOES NOT WANT IT TO BE CHECKED. EXPLAINED RISKS AND BENEFITS TO PATIENT BUT PATIENT CONTINUES TO REFUSE ACCUCHECK. RESPECTED PATIENT'S DECISION.
[2017-08-28] VITALS (7 sets, daily range): BP systolic 113–140; BP diastolic 60–75
[2017-08-28] MEDS: HYDROMORPHONE INJ 0.5 MG/0.5 ML SYRINGE IV PRN ×3 (04:15→20:11)
--- NOTE | 2017-08-28 06:20 | NUR ---
RN CLOSING NOTES PATIENT IN BED, ALERT AND ORIENTED X 4, VERBALLY RESPONSIVE, REFUSED BLOOD DRAW AND ACCUCHECK AT THIS TIME. PER PATIENT, HE PREFERS IT TO BE DONE AROUND BREAKFAST TIME. EXPLAINED RISKS AND BENEFITS TO PATIENT BUT PATIENT CONTINUES TO VERBALIZE THAT HE WANTS IT LATER. WILL ENDORSE TO AM SHIFT NURSE FOR CONTINUITY OF CARE. ALL PATIENT'S NEEDS ATTENDED TO A THIS TIME. CALL LIGHT PLACED WITHIN EASY REACH.
--- NOTE | 2017-08-28 07:20 | NUR ---
RN NOTES PT IS RESTING COMFORTABLY IN BED, NO SIGNS OF DISTRESS NOTED. PT ON RA, RESPIRATIONS ARE EVEN AND UNLABORED. IV ON LAC INTACT AND SL. SAFETY MEASURES ARE IN PLACE, CALL LIGHT IS IN REACH. WILL CONTINUE MONITOR.
[2017-08-28] MEDS: BLOOD SUGAR DIAGNOSTIC 1 EACH STRIP VI SCH ×4 (07:30→22:48)
[2017-08-28] MEDS: ISOSORBIDE DINITRATE (5MG) 5 MG TABLET PO SCH ×3 (08:03→17:08)
[2017-08-28] MEDS: CALCIUM ACETATE 667 MG TABLET PO SCH ×3 (08:03→17:08)
[2017-08-28] MEDS: hydrALAZINE HCL 10 MG TABLET PO SCH ×4 (08:04→22:48)
[2017-08-28] MEDS: ASPIRIN EC 81 MG TABLET.DR PO SCH (08:04)
[2017-08-28] MEDS: APIXABAN 2.5 MG TABLET PO SCH ×2 (08:04→17:08)
[2017-08-28] MEDS: CARVEDILOL 12.5 MG TABLET PO SCH ×2 (08:04→22:48)
[2017-08-28] MEDS: ONDANSETRON HCL/PF 4 MG/2 ML VIAL IVP PRN (12:06)
--- NOTE | 2017-08-28 12:15 | NUR ---
RN NOTES PT 1200 ACCUCHECK WAS 133. PT REFUSED INSULIN AT THIS TIME. HE STATES HE ONLY WANTS COVERAGE IF BLOOD SUGAR ABOVE 150.
[2017-08-28] MEDS: INSULIN REGULAR, HUMAN 100 UNIT/ML 3 ML VIAL SQ PRN (17:10)
--- NOTE | 2017-08-28 18:29 | NUR ---
RN NOTES PT IS RESTING IN BED COMFORTABLY. PT ON RA, RESPIRATIONS ARE EVEN AND UNLABORED. IV ON LAC INTACT AND SL. HEMODIALYSIS WAS DONE TODAY WITH 3L OUTPUT, PERMACATH DRESSING CHANGED. ALL PT NEEDS MET, DILAUDID LAST GIVEN AT 1210. SAFETY MEASURES ARE IN PLACE, CALL LIGHT IS IN REACH. WILL ENDORSE TO SCIENTIFIC AFFAIRS MANAGER RN FOR CONTINUITY OF CARE.
--- NOTE | 2017-08-28 19:40 | NUR ---
RN OPENING NOTES RECEIVED REPORT FROM MATT RNOBEY. FOUND Pt AWAKE, SITTING ON A CHAIR, TALKING ON THE PHONE. NO S/S OF ACUTE DISTRESS OR SOB NOTED. Pt IS A/OX4, VERBAL, ABLE TO MAKE NEEDS KNOWN. Pt C/O PAIN, WILL CHECK WHEN PAIN MED IS DUE. IV ACCESS ON LAC #20G, SL. SAFETY MEASURES IN PLACE. BED LOW, LOCKED, HOB ELEVATED, SIDE RAILS UP, CALL LIGHT AND BEDSIDE TABLE WITHIN REACH. WILL CONTINUE TO MONITOR Pt THROUGHOUT THE NIGHT FOR SAFETY.
[2017-08-28] MEDS: ATORVASTATIN 40 MG TABLET PO SCH (22:47)
--- NOTE | 2017-08-28 22:55 | NUR ---
HS BG 182. Pt REFUSED INSULIN COVERAGE.
[2017-08-29] MEDS: HYDROMORPHONE INJ 0.5 MG/0.5 ML SYRINGE IV PRN ×2 (00:25→05:26)
--- NOTE | 2017-08-29 06:31 | NUR ---
AC BG 162. Pt REFUSED INSULIN COVERAGE FOR THE AM.
--- NOTE | 2017-08-29 06:40 | NUR ---
RN CLOSING NOTES NO SIGNIFICANT CHANGES IN Pt's CONDITION. Pt REMAINS STABLE AT THIS TIME. NO S/S OF ACUTE DISTRESS OR SOB NOTED DURING THE NIGHT. ALL NEEDS MET AND ATTENDED TO. SAFETY MEASURES IN PLACE. WILL ENDORSE TO DAYSHIFT RN FOR Pt's LYRIC.
[2017-08-29] MEDS: BLOOD SUGAR DIAGNOSTIC 1 EACH STRIP VI SCH (06:44)
--- NOTE | 2017-08-29 07:44 | NUR ---
RN OPENING NOTES RECEIVED PATIENT RESTING COMFORTABLY IN BED. AOX4. NO ACUTE DISTRESS. RESPIRATIONS EVEN AND UNLABORED. IV ACCESS PATENT AND INTACT ON THE LAC 20G. HD COMPLETED YESTERDAY WITH 3L REMOVED. SATURATING ADEQUATELY ON ROOM AIR. DENIES SOB OR CP AT THIS TIME. PATIENT DENIES SOB OR CP AT THIS TIME. BED LOCKED IN THE LOWEST POSITION WITH SIDE RAILS UPX2. CALL LIGHT WITHIN REACH. WILL CONTINUE TO MONITOR, ASSESS AND EDUCATE PATIENT THROUGHOUT SHIFT.
[2017-08-29 08:00] VITALS: BP 134/75
[2017-08-29] MEDS: CALCIUM ACETATE 667 MG TABLET PO SCH (08:00)
[2017-08-29] MEDS: CARVEDILOL 12.5 MG TABLET PO SCH (09:00)
[2017-08-29] MEDS: ASPIRIN EC 81 MG TABLET.DR PO SCH (09:00)
[2017-08-29] MEDS: hydrALAZINE HCL 10 MG TABLET PO SCH (09:00)
[2017-08-29] MEDS: ISOSORBIDE DINITRATE (5MG) 5 MG TABLET PO SCH (09:00)
[2017-08-29] MEDS: APIXABAN 2.5 MG TABLET PO SCH (09:00)
--- NOTE | 2017-08-29 09:29 | NUR ---
RN NOTES PATIENT REFUSED ALL MORNING MEDICATIONS. PATIENT STATED HE WANTS TO LEAVE AND WILL TAKE MEDICATIONS AT HOME.
--- NOTE | 2017-08-29 09:46 | NUR ---
DEDICATED REGIONAL DRIVER NOTES PATIENT DISCHARGED IN STABLE CONDITION TO HOME. NO ACUTE DISTRESS. DENIES ANY PAIN. NO CP OR SOB. IN THE EVENT OF AN EMERGENCY PATIENT TO RETURN TO EMERGENCY ROOM. RESPIRATIONS EVEN UNLABORED. ALL NEEDS MET. ALL MEDS GIVEN APPROPRIATE. PATIENT TO CONTINUE HOME MEDICATIONS PRESCRIBED.
== END 2017-08-29 09:40 | disposition home or self-care (01) | DRG 73 ==
LOC: ER 11:27 → TELE 14:08 → MED 08-28 09:02
PROVIDERS: ADMIT Internal Medicine; ATTEND Internal Medicine
PROC: 5A1D70Z Performance of Urinary Filtration, Intermittent, Less than 6 Hours Per Day (ICD-10-PCS; principal; 2017-08-26)
PROC: 5A1D70Z Performance of Urinary Filtration, Intermittent, Less than 6 Hours Per Day (ICD-10-PCS; 2017-08-28)
DX: G90.8 Other disorders of autonomic nervous system (principal); N18.6 End stage renal disease; I13.2 Hypertensive heart and chronic kidney disease with heart failure and with stage 5 chronic kidney disease, or end stage renal disease; E11.22 Type 2 diabetes mellitus with diabetic chronic kidney disease; I25.82 Chronic total occlusion of coronary artery; I42.9 Cardiomyopathy, unspecified; I25.119 Atherosclerotic heart disease of native coronary artery with unspecified angina pectoris; I48.0 Paroxysmal atrial fibrillation; D63.8 Anemia in other chronic diseases classified elsewhere; I50.9 Heart failure, unspecified; E78.5 Hyperlipidemia, unspecified; F17.210 Nicotine dependence, cigarettes, uncomplicated; Z99.2 Dependence on renal dialysis; I25.2 Old myocardial infarction; Z79.01 Long term (current) use of anticoagulants
CPT/HCPCS: 36415; 71045-TC; 80048-TC; 82962-TC; 83735-TC; 84100-TC; 84484-TC; 85025-TC; 85730-TC; 87081-TC; 90935-TC; A4606; J1170; J1815; J2405; Z7610

== ENCOUNTER 2017-09-05 15:47 | Inpatient (IN) | payer MEDICARE, OTHER ==
[~2017-09-05] VITALS: Ht 175.3 cm; Wt 107.5 kg
--- NOTE | 2017-09-05 15:55 | NUR ---
AAOX3, [id number] FROM [facility]: CHEST PAIN ASA 162, NITRO x 2 GIVEN BY EMS. 3HRS OUT OF 3.5 HRS OF HEMODIALYSIS COMPLETED. RR IS EVEN AND UNLABORED. PLACED ON MONITOR. DR ZULETA AT FOR EVAL.
[2017-09-05] MEDS ORDERED: ASPIRIN 325 MG TABLET PO ONE (16:00)
[2017-09-05] MEDS ORDERED: NITROGLYCERIN 0.4 MG/TAB BOTTLE SL ONE (16:00)
[2017-09-05] MEDS ORDERED: ONDANSETRON HCL/PF 4 MG/2 ML VIAL IVP ONE (16:00)
[2017-09-05] MEDS ORDERED: MORPHINE SULFATE INJ 2 MG/ML DISP.SYRIN IV ONE (16:00)
[2017-09-05] MEDS ORDERED: NITROGLYCERIN 0.4 MG/TAB BOTTLE ONE (16:04)
[2017-09-05] MEDS ORDERED: MORPHINE SULFATE INJ 4 MG/ML DISP.SYRIN ONE (16:04)
[2017-09-05] MEDS ORDERED: ONDANSETRON HCL/PF 4 MG/2 ML VIAL ONE (16:04)
[2017-09-05] MEDS ORDERED: ASPIRIN 325 MG TABLET ONE (16:05)
[2017-09-05 16:06] LABS: BASOPHILS % (AUTO) 0.5 % (0.0-2.0); EOSINOPHILS # (AUTO) 0.2 /CMM (0.0-0.7); EOSINOPHILS % (AUTO) 3.2 % (0.0-6.0); HEMATOCRIT 26 % (39-51); HEMOGLOBIN 9.1 g/dL (13.5-17.5); LYMPHOCYTES # (AUTO) 1.3 /CMM (0.8-4.8); LYMPHOCYTES % (AUTO) 20.6 % (20.0-44.0); MEAN CORPUSCULAR HEMOGLOBIN 31 PG (26.0-33.0); MEAN CORPUSCULAR HGB CONC 35 g/dl (31.0-36.0); MEAN CORPUSCULAR VOLUME 88 fL (80-96); MONOCYTES # (AUTO) 0.5 /CMM (0.1-1.30); MONOCYTES % (AUTO) 7.6 % (2.0-12.0); NEUTROPHILS # (AUTO) 4.3 /CMM (1.8-8.9); NEUTROPHILS % (AUTO) 68.1 % (43.0-81.0); PLATELET COUNT (AUTO) 186 /CMM (150-450); RDW COEFFICIENT OF VARIATION 15.4 (11.5-15.0); RED BLOOD CELL COUNT(AUTO) 2.92 MIL/uL (4.5-6.0); WHITE BLOOD COUNT (AUTO) 6.3 K/uL (4.3-11.0)
[2017-09-05] MEDS ORDERED: ASPIRIN 81 MG TAB.CHEW ONE (16:12)
[2017-09-05 16:17] LABS: CALCIUM, SERUM 8.5 mg/dL (8.5-10.1); CREATININE 4.6 mg/dL (0.6-1.3); POTASSIUM 3.4 mmol/L (3.5-5.1)
[2017-09-05 16:27] LABS: INR 1.07 (0.85-1.15)
[2017-09-05] MEDS ORDERED: DILTIAZEM HCL 25 MG IV ONE (16:28)
[2017-09-05] MEDS ORDERED: ASPIRIN 81 MG TAB.CHEW PO ONE (16:30)
[2017-09-05] MEDS ORDERED: DILTIAZEM HCL 50 MG IV IV ONE (16:30)
[2017-09-05 16:32] LABS: TROPONIN I 0.053 ng/mL (0.00-0.056)
[2017-09-05] MEDS ORDERED: CARV25TA2 PO (16:35)
[2017-09-05] MEDS ORDERED: HYDR-4077 PO (16:35)
--- NOTE | 2017-09-05 17:09 | NUR ---
BED 313-1
--- NOTE | 2017-09-05 17:50 | NUR ---
REPORT GIVEN TO YANNI BARNHART FOR [facility] TELE 313-1
--- NOTE | 2017-09-05 18:37 | NUR ---
RN NOTES PT WAS BROUGHT UP TO FLOOR FROM ER. PT IS ALERT AND ORIENTED X4. PT ON RA, RESPIRATIONS ARE EVEN AND UNLABORED. IV ON LAC INTACT AND SL. TELE MONITOR READS SINUS AT 94. SAFETY MEASURES ARE IN PLACE, CALL LIGHT IS IN REACH. WILL ENDORSE TO BURNER OPERATOR RN FOR CONTINUITY OF CARE.
--- NOTE | 2017-09-05 19:00 | NUR ---
Found patient picking at his forehead, asking him what was going on, he stated he had an ingrown hair and whas removing it, not forehead blood and his hand blood cleaned his hand and forehead and wash the scratched open wound on his forehead placed a bandaid which he removed saying he didnt want a bandaid on photo taken
[2017-09-05 20:00] VITALS: BP 138/72
[2017-09-05] MEDS ORDERED: HYDROCODONE/APAP 5/325MG 1 EACH TABLET PO PRN (20:30)
[2017-09-05] MEDS ORDERED: ONDANSETRON HCL/PF 4 MG/2 ML VIAL IVP PRN (20:30)
[2017-09-05] MEDS ORDERED: NITROGLYCERIN 0.4 MG/TAB BOTTLE SL PRN (20:30)
[2017-09-05] MEDS ORDERED: MAG HYDROX/AL HYDROX/SIMETH 30 ML UDC PO PRN (20:30)
[2017-09-05] MEDS ORDERED: Z GUARD REMEDY 2 OZ OINT TP PRN (20:30)
[2017-09-05] MEDS ORDERED: MORPHINE SULFATE INJ 2 MG/ML DISP.SYRIN IV PRN (20:30)
[2017-09-05] MEDS ORDERED: MAGNESIUM HYDROXIDE 30 ML UDC PO PRN (20:30)
[2017-09-05] MEDS ORDERED: DEXTROSE 50%-WATER 50 ML DISP.SYRIN IV PRN (20:30)
[2017-09-05] MEDS ORDERED: ACETAMINOPHEN 325 MG TABLET PO PRN (20:30)
[2017-09-05] MEDS ORDERED: POTASSIUM CHLORIDE 20 MEQ TAB.PRT.SR PO ONE (21:00)
[2017-09-05] MEDS: ATORVASTATIN 40 MG TABLET PO SCH (21:32)
[2017-09-05] MEDS: BLOOD SUGAR DIAGNOSTIC 1 EACH STRIP IN SCH (21:38)
--- NOTE | 2017-09-05 22:30 | NUR ---
Refused blood draw for his trops
--- NOTE | 2017-09-05 23:09 | NUR ---
refused to have his bostrils swabbed for a MRSA culture
--- NOTE | 2017-09-05 23:10 | NUR ---
patient refusing to have blood drawn for his trop levels and MRSA swab
[2017-09-06] VITALS (8 sets, daily range): BP systolic 109–145; BP diastolic 66–80
--- NOTE | 2017-09-06 | NUR ---
spoke with soledad, stated he will have the blood drawn in the morning not tonight. States the pain he has is all over like the flu not only chest pain he stated Freedom causes nausea for to develope nauses wants the Shot it does help, he quesyioned me earlier why Im giving him such a small dose. Explained to him that 2 mg can help and to try it
[2017-09-06] MEDS: MORPHINE SULFATE INJ 4 MG/ML DISP.SYRIN IV PRN ×3 (01:16→09:24)
--- NOTE | 2017-09-06 04:10 | NUR ---
MR WRIGHT IS A PLEASENT GENTLEMAN. STATES HIS PAIN IS ALL OVER THE BODY 'LIKE THE FLU' DOESN'T WANT TOO USE NORCO D/T THAT MEDICATION IS LIKE VICODAN AND MAKES HIM NAUSEATED. HE REQUISTED 'A SHOT'' , VERBALIZED HE WANTED A LARGER DOSE AND 2MG WAS TOO LITTLE, CONVINCED HIM TO GIVE IT A TRY. GIVEN 2MG x2 FAR AND EFFECTICE FOUND ASLEEP WHEN CHECHED ON TO REASSES. AWARE HE IS NPO UNTIL THE ACCESS CLERK SEES HIM IN THE AM TO TALK TO HIM. INFORMED IM THE TROP. AND THE BLOOD THEY DRAW THIS MORNING WILL BE VERY IMPORTANT TO ALLOW THE THEM TO DRAW, OKAYED TO HAVE THEM DRAW HIS BLOOD THIS MORNING
[2017-09-06] MEDS: INSULIN REGULAR, HUMAN 100 UNIT/ML 3 ML VIAL SQ PRN ×2 (06:21→12:15)
[2017-09-06] MEDS: BLOOD SUGAR DIAGNOSTIC 1 EACH STRIP IN SCH ×5 (06:25→21:15)
[2017-09-06 07:09] LABS: BASOPHILS # (AUTO) 0.1 /CMM (0.0-0.2); BASOPHILS % (AUTO) 1.1 % (0.0-2.0); EOSINOPHILS # (AUTO) 0.3 /CMM (0.0-0.7); EOSINOPHILS % (AUTO) 5.4 % (0.0-6.0); HEMATOCRIT 25 % (39-51); HEMOGLOBIN 8.7 g/dL (13.5-17.5); LYMPHOCYTES # (AUTO) 1.3 /CMM (0.8-4.8); LYMPHOCYTES % (AUTO) 21.5 % (20.0-44.0); MEAN CORPUSCULAR HEMOGLOBIN 31 PG (26.0-33.0); MEAN CORPUSCULAR HGB CONC 34 g/dl (31.0-36.0); MEAN CORPUSCULAR VOLUME 90 fL (80-96); MONOCYTES # (AUTO) 0.8 /CMM (0.1-1.30); MONOCYTES % (AUTO) 12.5 % (2.0-12.0); NEUTROPHILS # (AUTO) 3.6 /CMM (1.8-8.9); NEUTROPHILS % (AUTO) 59.5 % (43.0-81.0); PLATELET COUNT (AUTO) 187 /CMM (150-450); RDW COEFFICIENT OF VARIATION 16.3 (11.5-15.0); RED BLOOD CELL COUNT(AUTO) 2.82 MIL/uL (4.5-6.0); WHITE BLOOD COUNT (AUTO) 6.1 K/uL (4.3-11.0)
[2017-09-06 07:18] LABS: CALCIUM, SERUM 8.8 mg/dL (8.5-10.1); CREATININE 5.9 mg/dL (0.6-1.3); POTASSIUM 4.3 mmol/L (3.5-5.1)
[2017-09-06 07:24] LABS: ALBUMIN 2.9 g/dL (3.4-5.0); BILIRUBIN,TOTAL 0.6 mg/dL (0.2-1.0); MAGNESIUM 2.2 mg/dL (1.8-2.4); PHOSPHORUS 6.1 mg/dL (2.5-4.9); TOTAL PROTEIN, SERUM 7.4 g/dL (6.4-8.2)
[2017-09-06 07:27] LABS: TROPONIN I 0.04 ng/mL (0.00-0.056)
--- NOTE | 2017-09-06 07:30 | NUR ---
RN OPEN NOTES RECEIVED REPORT FROM PANTRY STEWARD/STEWARDESS NURSE. WILL CONTINUE TO MONITOR AND ASSESS PATIENT
[2017-09-06] MEDS: CALCIUM ACETATE 667 MG TABLET PO SCH ×3 (08:00→17:32)
[2017-09-06 08:30] LABS: THYROID STIMULATING HORMONE 0.614 uIU/mL (0.358-3.74)
[2017-09-06] MEDS: ASPIRIN EC 81 MG TABLET.DR PO SCH (09:00)
[2017-09-06] MEDS: CARVEDILOL 12.5 MG TABLET PO SCH ×2 (09:00→21:15)
[2017-09-06] MEDS: ISOSORBIDE DINITRATE (5MG) 5 MG TABLET PO SCH ×3 (09:00→17:00)
[2017-09-06] MEDS: AMIODARONE HCL 200 MG TABLET PO SCH ×3 (09:00→17:29)
[2017-09-06] MEDS: APIXABAN 2.5 MG TABLET PO SCH ×2 (09:00→17:28)
[2017-09-06] MEDS: hydrALAZINE HCL 50 MG TABLET PO SCH ×3 (09:00→17:00)
--- NOTE | 2017-09-06 09:00 | NUR ---
HELD ALL BLOOD PRESSURE AND BLOOD THINNER MEDS. PATIENT IS GOING TO HAVE DIALYSIS TODAY
--- NOTE | 2017-09-06 11:17 | NUR ---
INITIAL REPORT OF ECHO STUDY SHOWED EF 45%~ WITH SEVERE PULMONARY HYPERTENSION. INFORMED ATTENDING NURSE (THOMPSON) OF RESULT.
[2017-09-06] MEDS ORDERED: HYDROMORPHONE 1 MG/1 ML DISP.SYRIN IV PRN (14:00)
[2017-09-06] MEDS: HYDROMORPHONE INJ 0.5 MG/0.5 ML SYRINGE IV PRN ×3 (14:14→22:11)
--- NOTE | 2017-09-06 18:44 | NUR ---
RN CLOSING NOTES PATIENT IS ALERT AND ORIENTED TO NAME, PLACE AND TIME. RESTING IN BED. NO SIGNS AND SYMPTOMS OF DISTRESS. PAIN LEVEL 4/10, LAST DILAUDID ADMINISTERED AT 1815. BED IN LOW POSITION, LOCKED AND TWO BEDSIDE RAILS ARE UP. CALL LIGHT IS WITHIN REACH FOR SAFETY. ALL NEEDS WERE MET. ALL NURSING CARE ANTICIPATED AND ATTENDED FOE. NO ACUTE CHANGED DURING THE SHIFT. WILL ENDORSE CARE TO DIRECTOR COMMUNITY CENTER NURSE.
--- NOTE | 2017-09-06 19:30 | NUR ---
ELECTRIC SPOT WELDER OPENING NOTES: PATIENT SITTING ON BED, AOX4, ON ROOM AIR, BREATHING EVEN AND UNLABORED. APPEARS CALM AND IN NO DISTRESS. STATES THAT HIS MIDSTERNAL CHEST PAIN HAS BEEN RELIEVED. ON TELE MONITORING: AFIB AT 90S RATE. CRISPIN HAS HD CATHETER AT LEFT CHEST WALL, WITH CLEAN AND INTACT DRESSING. PIV OVER LAC G 18 INTACT AND PATENT TO FLUSH. PROVIDED FOR COMFORT AND SAFETY. BED IN LOWEST AND LOCKED POSITION, SIDERAILS UP X 3. CALL LIGHT WITHIN REACH. WILL CONT TO MONITOR.
[2017-09-06] MEDS: ATORVASTATIN 40 MG TABLET PO SCH (21:15)
--- NOTE | 2017-09-06 21:15 | NUR ---
RN NOTES: PATIENT REFUSED TO HAVE BLOOD SUGAR CHECKED. NEMO ASKED WHY, PT SAID," I HAVE BEEN DIABETIC FOR 20 YRS, I KNOW HOW TO TAKE CARE OF MYSELF." RISKS AND BENEFITS EXPLAINED. WILL CONT TO MONITOR.
--- NOTE | 2017-09-06 22:15 | NUR ---
RN NOTES: NOTED THAT PIV OVER LAC G18 WITH SOME LEAKING WHEN NS FLUSH PUSHED IN, BUT STILL WITH GOOD BLOOD RETURN, READJUSTED POSITION. PATIENT REFUSING TO HAVE ANOTHER IV LINE STARTED, SAYING HE IS A HARD STICK.
[2017-09-07] VITALS: BP 115/67
--- NOTE | 2017-09-07 02:20 | NUR ---
RN NOTES: PATIENT COMPLAINED OF 9/10 PAIN OVER BLE AND LOWER BACK. ADMINISTERED DILAUDID 1 MG IV. WILL CONT TO MONITOR.
[2017-09-07] MEDS: HYDROMORPHONE INJ 0.5 MG/0.5 ML SYRINGE IV PRN ×3 (02:26→11:15)
[2017-09-07 05:05] VITALS: BP 123/71
[2017-09-07] MEDS: BLOOD SUGAR DIAGNOSTIC 1 EACH STRIP IN SCH ×2 (06:57→11:15)
[2017-09-07 07:24] LABS: BASOPHILS # (AUTO) 0.1 /CMM (0.0-0.2); BASOPHILS % (AUTO) 0.9 % (0.0-2.0); EOSINOPHILS # (AUTO) 0.4 /CMM (0.0-0.7); EOSINOPHILS % (AUTO) 5.5 % (0.0-6.0); HEMATOCRIT 29 % (39-51); HEMOGLOBIN 9.7 g/dL (13.5-17.5); LYMPHOCYTES # (AUTO) 1.6 /CMM (0.8-4.8); LYMPHOCYTES % (AUTO) 24.2 % (20.0-44.0); MEAN CORPUSCULAR HEMOGLOBIN 31 PG (26.0-33.0); MEAN CORPUSCULAR HGB CONC 34 g/dl (31.0-36.0); MEAN CORPUSCULAR VOLUME 90 fL (80-96); MONOCYTES # (AUTO) 0.8 /CMM (0.1-1.30); MONOCYTES % (AUTO) 12.2 % (2.0-12.0); NEUTROPHILS # (AUTO) 3.7 /CMM (1.8-8.9); NEUTROPHILS % (AUTO) 57.2 % (43.0-81.0); PLATELET COUNT (AUTO) 219 /CMM (150-450); RDW COEFFICIENT OF VARIATION 16.1 (11.5-15.0); RED BLOOD CELL COUNT(AUTO) 3.17 MIL/uL (4.5-6.0); WHITE BLOOD COUNT (AUTO) 6.5 K/uL (4.3-11.0)
--- NOTE | 2017-09-07 07:24 | NUR ---
WET MILLING WHEEL OPERATOR CLOSING NOTES: PATIENT IN BED, AOX4, ON ROOM AIR, BREATHING EVEN AND UNLABORED. ON TELE MONITOR: AFIB AT RATE OF 90S. PIV OVER L WRIST G 24 INTACT AND PATENT TO FLUSH. LCW HD CATHETER WITH CLEAN AND INTACT DRESSING. AM BLOOD SUGAR CHECKED AT 122 MG/DL. DUE MEDS GIVEN. PROVIDED FOR COMFORT AND SAFETY. BED IN LOWEST AND LOCKED POSITION, SIDERAILS UP X 3, CALL LIGHT WITHIN REACH. WILL ENDORSE TO AM RN FOR LYRIC.
[2017-09-07 07:35] LABS: CREATININE 6.3 mg/dL (0.6-1.3); MAGNESIUM 2.3 mg/dL (1.8-2.4); PHOSPHORUS 5.8 mg/dL (2.5-4.9); POTASSIUM 4.3 mmol/L (3.5-5.1)
--- NOTE | 2017-09-07 07:58 | NUR ---
AIRPLANE DESIGNER OPENING NOTE PATIENT IS ALERT AND ORIENTED x4. NO PAIN AT THIS TIME. NO SOB OR DISTRESS NOTED. CALL LIGHT WITHIN REACH. SAFETY MEASURES IMPLEMENTED. ABLE TO COMMUNICATE NEEDS. IV INTACT AND PATENT NO REDNESS OR SWELLING NOTED. TELE MONITOR-AFIB AT 60S. BATHROOM PRIVILEGES. HEMODIALYSIS TODAY, BS SUGARS TO BE MONITORED THROUGHOUT SHIFT. AWAITING LABS. WILL CONTINUE TO MONITOR THROUGHOUT SHIFT
[2017-09-07 08:00] VITALS: BP 132/80
[2017-09-07] MEDS: ASPIRIN EC 81 MG TABLET.DR PO SCH (08:13)
[2017-09-07] MEDS: CALCIUM ACETATE 667 MG TABLET PO SCH ×2 (08:14→13:13)
[2017-09-07] MEDS: APIXABAN 2.5 MG TABLET PO SCH (08:14)
[2017-09-07] MEDS: AMIODARONE HCL 200 MG TABLET PO SCH ×2 (08:15→13:13)
[2017-09-07] MEDS: CARVEDILOL 12.5 MG TABLET PO SCH (08:15)
[2017-09-07] MEDS: hydrALAZINE HCL 50 MG TABLET PO SCH ×2 (08:15→13:00)
[2017-09-07] MEDS: ISOSORBIDE DINITRATE (5MG) 5 MG TABLET PO SCH ×2 (08:16→13:14)
--- NOTE | 2017-09-07 08:30 | NUR ---
RN NOTE PATIENT WILL RECEIVE HEMODIALYSIS, BP MEDICATIONS ARE ON HOLD.
--- NOTE | 2017-09-07 11:24 | NUR ---
MS RN NOTE BLOOD SUGAR CHECKED, 146. NO INSULIN PER PATIENT REQUEST.
[2017-09-07 13:14] VITALS: BP 130/64
--- NOTE | 2017-09-07 15:00 | NUR ---
MS HEALTHCARE ADMINISTRATIVE ASSISTANT NOTE PATIENT IS ALERT AND ORIENTED x4. NO PAIN AT THIS TIME. NO SOB OR DISTRESS NOTED. CALL LIGHT WITHIN REACH AT ALL TIMES. SAFETY MEASURES IMPLEMENTED. ABLE TO COMMUNICATE NEEDS.ALL DUE MEDICATIONS GIVEN ORDERED. ALL NURSING CARE NEEDS ATTENDED TO. 02 SATURATION WELL ON ROOM AIR. IV REMOVED, SKIN INTACT. ALL BELONGINGS ACCOUNTED FOR AND TAKEN WITH PATIENT UPON DISCHARGE. ALL DISCHARGE INSTRUCTIONS GIVEN TO PATIENT AT BEDSIDE, PATIENT ABLE TO COMMUNICATE UNDERSTANDING AND TEACH BACK WAS RECEIVED. PATIENT IS AWARE TO FOLLOW UP WITH PRIMARY CARE DOCTOR AND DR. DIAZ OUTPATIENT. WILL HAVE HEMODIALYSIS OUTPATIENT WITH LEFT CHEST WALL HD CATH INTACT AND PATENT, DRESSING CLEAN DRY AND INTACT. LEFT VIA PRIVATE CAR.
== END 2017-09-07 15:00 | disposition home or self-care (01) | DRG 291 ==
LOC: ER 15:49 → TELE 17:16 → MED 09-07 09:37
PROVIDERS: ADMIT Internal Medicine; ATTEND Internal Medicine
PROC: 5A1D70Z Performance of Urinary Filtration, Intermittent, Less than 6 Hours Per Day (ICD-10-PCS; principal; 2017-09-06)
PROC: 5A1D70Z Performance of Urinary Filtration, Intermittent, Less than 6 Hours Per Day (ICD-10-PCS; 2017-09-07)
DX: I13.2 Hypertensive heart and chronic kidney disease with heart failure and with stage 5 chronic kidney disease, or end stage renal disease (principal); N18.6 End stage renal disease; D68.59 Other primary thrombophilia; E11.22 Type 2 diabetes mellitus with diabetic chronic kidney disease; E11.42 Type 2 diabetes mellitus with diabetic polyneuropathy; E83.39 Other disorders of phosphorus metabolism; I50.43 Acute on chronic combined systolic (congestive) and diastolic (congestive) heart failure; R07.9 Chest pain, unspecified; I25.10 Atherosclerotic heart disease of native coronary artery without angina pectoris; I42.9 Cardiomyopathy, unspecified; D63.8 Anemia in other chronic diseases classified elsewhere; E78.5 Hyperlipidemia, unspecified; E87.6 Hypokalemia; H54.8 Legal blindness, as defined in USA; I25.2 Old myocardial infarction; I48.2 Chronic atrial fibrillation; Z87.891 Personal history of nicotine dependence; Z99.2 Dependence on renal dialysis; G47.33 Obstructive sleep apnea (adult) (pediatric); I27.20 Pulmonary hypertension, unspecified; Z79.01 Long term (current) use of anticoagulants
CPT/HCPCS: 36415; 71045-TC; 80048-TC; 80053-TC; 80061-TC; 82962-TC; 83735-TC; 84100-TC; 84443-TC; 84484-TC; 85025-TC; 85730-TC; 87081-TC; 90935-TC; 93307-TC; A4606; J2270; J2405; J3490; Z7610

== ENCOUNTER 2017-09-30 20:36 | Inpatient (IN) | payer MEDICARE, OTHER ==
[~2017-09-30] VITALS: Ht 182.9 cm; Wt 116.6 kg
[~2017-09-30 20:36] MED LIST changes: -CARV12.52 PO; +CARV25TA2 PO; -HYDR-4075 PO; +HYDR-4077 PO
--- NOTE | 2017-09-30 21:15 | NUR ---
PT CAME IN WITH C/O GENERELAZIED BODY PAIN. VSS. REPORTS TO BE A DIALYSIS PT. DENIES TRAUMA. SEEN BY MD FOR EVAL. SAFETY AND COMFORT MEASURES PROVIDED. WILL MONITOR.
--- NOTE | 2017-09-30 21:20 | NUR ---
IV ACCESS STARTED. BLOOD DRAWN FOR LABS.
[2017-09-30 21:27] LABS: BASOPHILS % (AUTO) 0.4 % (0.0-2.0); EOSINOPHILS # (AUTO) 0.5 /CMM (0.0-0.7); EOSINOPHILS % (AUTO) 4.4 % (0.0-6.0); HEMATOCRIT 27 % (39-51); HEMOGLOBIN 9.4 g/dL (13.5-17.5); LYMPHOCYTES # (AUTO) 1.3 /CMM (0.8-4.8); LYMPHOCYTES % (AUTO) 12.3 % (20.0-44.0); MEAN CORPUSCULAR HEMOGLOBIN 31 PG (26.0-33.0); MEAN CORPUSCULAR HGB CONC 34 g/dl (31.0-36.0); MEAN CORPUSCULAR VOLUME 92 fL (80-96); MONOCYTES # (AUTO) 0.9 /CMM (0.1-1.30); MONOCYTES % (AUTO) 8.5 % (2.0-12.0); NEUTROPHILS # (AUTO) 7.8 /CMM (1.8-8.9); NEUTROPHILS % (AUTO) 74.4 % (43.0-81.0); PLATELET COUNT (AUTO) 223 /CMM (150-450); RDW COEFFICIENT OF VARIATION 15.4 (11.5-15.0); WHITE BLOOD COUNT (AUTO) 10.4 K/uL (4.3-11.0)
[2017-09-30 21:37] LABS: CALCIUM, SERUM 8.7 mg/dL (8.5-10.1); CREATININE 7.4 mg/dL (0.6-1.3); POTASSIUM 4.2 mmol/L (3.5-5.1)
[2017-09-30 21:46] LABS: TROPONIN I 0.055 ng/mL (0.00-0.056)
[2017-09-30 21:57] LABS: INR 1.09 (0.85-1.15)
[2017-09-30] MEDS ORDERED: METOPROLOL TARTRATE INJ 5 MG/5 ML AMPUL IV ONE (22:00)
[2017-09-30] MEDS ORDERED: oxyCODONE/APAP (5/325 MG) 1 UDTAB TABLET PO ONE (22:00)
[2017-09-30] MEDS ORDERED: NITROGLYCERIN 0.4 MG/TAB BOTTLE SL ONE (22:00)
[2017-09-30] MEDS ORDERED: METOPROLOL TARTRATE INJ 5 MG/5 ML AMPUL ONE (22:02)
[2017-09-30] MEDS ORDERED: oxyCODONE/APAP (5/325 MG) 1 UDTAB TABLET ONE (22:02)
[2017-09-30] MEDS ORDERED: NITROGLYCERIN 0.4 MG/TAB BOTTLE ONE (22:02)
[2017-09-30] MEDS ORDERED: ONDANSETRON HCL/PF 4 MG/2 ML VIAL ONE (23:42)
[2017-09-30] MEDS ORDERED: HYDROCODONE/APAP 10/325MG 1 EA TABLET ONE (23:42)
[2017-09-30 23:45] VITALS: BP 170/103
[2017-09-30] MEDS: ONDANSETRON HCL/PF 4 MG/2 ML VIAL IVP PRN (23:50)
[2017-09-30] MEDS: HYDROCODONE/APAP 10/325MG 1 EA TABLET PO PRN (23:50)
[2017-10-01] VITALS: BP_SYST 144; BP_SYST 170; BP_DIAS 103; BP_DIAS 93
[2017-10-01] MEDS ORDERED: MAGNESIUM HYDROXIDE 30 ML UDC PO PRN
[2017-10-01] MEDS ORDERED: HYDROCODONE/APAP 5/325MG 1 EACH TABLET PO PRN
[2017-10-01] MEDS ORDERED: MAG HYDROX/AL HYDROX/SIMETH 30 ML UDC PO PRN
[2017-10-01] MEDS ORDERED: ACETAMINOPHEN 325 MG TABLET PO PRN
[2017-10-01] MEDS ORDERED: ZOLPIDEM TARTRATE 5 MG TABLET PO PRN
--- NOTE | 2017-10-01 | NUR ---
GEAR TOOTH LAPPING MACHINE OPERATOR NOTES RECEIVED PATIENT FROM ER VIA GURNEY, PATIENT ABLE TO AMBULATE TO BED STEADILY. PATIENT NOTED TO BE WRETCHING UPON ADMISSION, EMESIS BAG GIVEN, NOTED WITH EMESIS X1, ZOFRAN OVERRIDE PERFORMED BY RELIEF CHARGE NURSE DUE TO EMERGENT NEED. PATIENT IS AWAKE, ALERT AND ORIENTED X4, ABLE TO VERBALIZE NEEDS, LEGALLY BLIND IN THE RIGHT EYE. BREATHING EVEN AND NONLABORED, REFUSING O2 VIA NC. [PLACED ON TELEMETRY MONITORING, REVEALING A FIB, HR = 110 AT THIS TIME. PATIENT REFUSES TO ALLOW STAFF TO PERFORM FULL BODY ASSESSMENT, UNABLE TO ASSESS SKIN UNDER PATIENT'S PANTS DUE TO REFUSAL. IV SITE C/D/I, FLUSHED WITH SALINE, PATENT, FREE FROM ANY S/S OF INFILTRATION OR PHLEBITIS. PLAN OF CARE DISCUSSED WITH THE PATIENT, WHO VERBALIZES UNDERSTANDING. CALL LIGHT LEFT WITHIN EASY REACH, BED IN LOWEST AND LOCKED POSITION. WILL CONTINUE TO CLOSELY MONITOR
[2017-10-01] MEDS: MORPHINE SULFATE INJ 4 MG/ML DISP.SYRIN IV PRN ×2 (01:05→09:31)
[2017-10-01 04:00] VITALS: BP 150/59
--- NOTE | 2017-10-01 07:00 | NUR ---
RN CLOSING NOTES PATIENT RESTING COMFORTABLY IN BED, NO ACUTE CHANGES THROUGHOUT SHIFT. PATIENT KEPT COMFORTABLE. WILL ENDORSE THE PATIENT TO THE AM SHIFT NURSE FOR LYRIC
[2017-10-01 07:13] LABS: BASOPHILS # (AUTO) 0.1 /CMM (0.0-0.2); BASOPHILS % (AUTO) 0.8 % (0.0-2.0); EOSINOPHILS # (AUTO) 0.4 /CMM (0.0-0.7); EOSINOPHILS % (AUTO) 4.7 % (0.0-6.0); HEMATOCRIT 25 % (39-51); HEMOGLOBIN 8.3 g/dL (13.5-17.5); LYMPHOCYTES # (AUTO) 1.6 /CMM (0.8-4.8); LYMPHOCYTES % (AUTO) 18.1 % (20.0-44.0); MEAN CORPUSCULAR HEMOGLOBIN 32 PG (26.0-33.0); MEAN CORPUSCULAR HGB CONC 34 g/dl (31.0-36.0); MEAN CORPUSCULAR VOLUME 94 fL (80-96); MONOCYTES # (AUTO) 0.8 /CMM (0.1-1.30); MONOCYTES % (AUTO) 9.1 % (2.0-12.0); NEUTROPHILS # (AUTO) 6.1 /CMM (1.8-8.9); NEUTROPHILS % (AUTO) 67.3 % (43.0-81.0); PLATELET COUNT (AUTO) 182 /CMM (150-450); RDW COEFFICIENT OF VARIATION 16.7 (11.5-15.0); RED BLOOD CELL COUNT(AUTO) 2.62 MIL/uL (4.5-6.0)
--- NOTE | 2017-10-01 07:15 | NUR ---
Patient stated that [place] was not adequate in controlling pain. Patient reports pain 8/10 in BLE/LB Administering Morphine as prescribed.
--- NOTE | 2017-10-01 07:20 | NUR ---
certified surgical first assistant opening note Received bedside SBAR report on the patient. Patient is awake and responsive in bed. Bed is locked in lowest position, side rails up x 2. Patient is ambulatory and oriented to own abilities. Skin is intact. Refuses to take out the pants for the RN to assess the perianal area. Patient reports acute pain in LB/BLE. Will administer analgesic as ordered. Chest is rising equally/bilaterally. External court monitor reading Afib 86. Academic Administrator Dr. Wisdom aware. No new orders received. All needs are met. Call light within reach. Patient educated to call for assistance using the call light and verbalized understanding. Will continue to assess/monitor throughout the shift.
[2017-10-01 07:28] LABS: CALCIUM, SERUM 8.2 mg/dL (8.5-10.1); PHOSPHORUS 5.4 mg/dL (2.5-4.9)
[2017-10-01 07:32] LABS: CREATININE 7.5 mg/dL (0.6-1.3)
[2017-10-01 07:38] LABS: TROPONIN I 0.051 ng/mL (0.00-0.056)
[2017-10-01 08:00] VITALS: BP 118/74
[2017-10-01] MEDS: CALCIUM ACETATE 667 MG TABLET PO SCH ×2 (08:00→12:08)
[2017-10-01] MEDS: ONDANSETRON HCL/PF 4 MG/2 ML VIAL IVP PRN (08:08)
[2017-10-01] MEDS: hydrALAZINE HCL 50 MG TABLET PO SCH ×2 (08:09→12:07)
[2017-10-01] MEDS: ISOSORBIDE DINITRATE (5MG) 5 MG TABLET PO SCH ×2 (08:12→12:09)
[2017-10-01] MEDS: HYDROCODONE/APAP 10/325MG 1 EA TABLET PO PRN (08:13)
--- NOTE | 2017-10-01 08:18 | NUR ---
PATIENT COMPLAINED OF LB/BLE PAIN AND NAUSEA. NORCO AND ZOFRAN ADMINISTERED PRESCRIBED.
[2017-10-01] MEDS ORDERED: ASPIRIN EC 81 MG TABLET.DR PO SCH (09:00)
[2017-10-01] MEDS ORDERED: CARVEDILOL 12.5 MG TABLET PO SCH (09:00)
[2017-10-01] MEDS ORDERED: APIXABAN 2.5 MG TABLET PO SCH (09:00)
--- NOTE | 2017-10-01 09:18 | NUR ---
GROUND WORKER DR SHOEMAKER AT THE BEDSIDE.
[2017-10-01 10:21] LABS: IRON, SERUM 48 ug/dl (50-175); TOTAL IRON BINDING CAPACITY 234 ug/dl (250-450)
[2017-10-01 10:26] LABS: FERRITIN 516 ng/mL (8-388)
[2017-10-01 12:00] VITALS: BP 138/87
[2017-10-01 12:09] VITALS: BP 138/87
--- NOTE | 2017-10-01 12:11 | NUR ---
BP medication non administered because dialysis at the bedside.
--- NOTE | 2017-10-01 15:38 | NUR ---
PATIENT STATED HE NEEDS TO LEAVE THE HOSPITAL HE HAS OUTSIDE IMPORTANT MATTERS TO ATTEND TO. DR. STONER IS AWARE. DISCHARGE ORDER RECEIVED. SN WENT TO THE PATIENT'S ROOM AND SAW THE IV CATHETER REMOVED. PATIENT STATED HE REMOVED OWN IV BECAUSE HE IS IN A HURRY TO LEAVE. IV CATHETER FOUND IN THE TRASH CAN WITH THE CATHETER TIP INTACT. RN SAFELY DISPOSED OF THE IV CATHETER INTO THE SHARPS CONTAINER. DR. STONER NOTIFIED. PATIENT REFUSED TO TAKE HIS COPIES OF THE DISCHARGE. PATIENT LEFT THE HOSPITAL PRE[facility] AMBULATORY IN STABLE CONDITION ACCOMPANIED BY THE FRIEND. RISKS AND BENEFITS DISCUSSED. PATIENT LEFT THE HOSPITAL PREMIS[facility].
[2017-10-01] MEDS ORDERED: INSULIN GLARGINE, 100 UNIT/ML CARTRIDGE SQ SCH (22:00)
[2017-10-01] MEDS ORDERED: ATORVASTATIN 40 MG TABLET PO SCH (22:00)
== END 2017-10-01 15:40 | disposition home or self-care (01) | DRG 291 ==
LOC: ER 20:38 → TELE1 23:17
PROVIDERS: ADMIT Nurse Practitioner Acute Care; ATTEND Nurse Practitioner Acute Care
PROC: 5A1D70Z Performance of Urinary Filtration, Intermittent, Less than 6 Hours Per Day (ICD-10-PCS; principal; 2017-10-01)
DX: I13.2 Hypertensive heart and chronic kidney disease with heart failure and with stage 5 chronic kidney disease, or end stage renal disease (principal); I50.23 Acute on chronic systolic (congestive) heart failure; D68.59 Other primary thrombophilia; E11.22 Type 2 diabetes mellitus with diabetic chronic kidney disease; E11.41 Type 2 diabetes mellitus with diabetic mononeuropathy; N18.6 End stage renal disease; I27.20 Pulmonary hypertension, unspecified; N25.81 Secondary hyperparathyroidism of renal origin; I24.9 Acute ischemic heart disease, unspecified; Z79.01 Long term (current) use of anticoagulants; D63.1 Anemia in chronic kidney disease; G89.4 Chronic pain syndrome; E78.5 Hyperlipidemia, unspecified; H35.30 Unspecified macular degeneration; I25.10 Atherosclerotic heart disease of native coronary artery without angina pectoris; I48.91 Unspecified atrial fibrillation; Z99.2 Dependence on renal dialysis; Z87.891 Personal history of nicotine dependence; H54.61 Unqualified visual loss, right eye, normal vision left eye; I25.2 Old myocardial infarction; I34.0 Nonrheumatic mitral (valve) insufficiency; Z79.4 Long term (current) use of insulin
CPT/HCPCS: 36415; 71045-TC; 80048-TC; 80061-TC; 82728-TC; 83540-TC; 83735-TC; 84100-TC; 84484-TC; 85025-TC; 85730-TC; A4606; J1815; J2270; J2405; J3490; Z7610

== ENCOUNTER 2017-10-16 19:49 | Inpatient (IN) | payer MEDICARE, OTHER ==
[~2017-10-16] VITALS: Ht 167.6 cm; Wt 124.3 kg
--- NOTE | 2017-10-16 19:57 | NUR ---
PT TO ER BED 18. PT BIB SELF C/O SYNCOPAL EPISODE X 2 HRS AGO. STATES MISSED DIALYSIS TWICE. PT PLACED IN GOWN AND ON INFORMATION ANALYST. VSS/RESP EVEN UNLABORED/NAD NOTED/SKIN WARM AND DRY/DENIES N-V-D/AFEBRILE/AOX4. AWAITING MD ALFARO.
--- NOTE | 2017-10-16 19:58 | NUR ---
DR. MASHA GARCIA
--- NOTE | 2017-10-16 20:10 | NUR ---
20G IV X 1 ATTEMPT TO L AC USING ASEPTIC TECH, BLOOD HANDED OVER TO THE LAB AT THE BEDSIDE. IV FLUSHES EASILY WITH NS, NO S/S INFILTRATION.
[2017-10-16 20:13] LABS: BASOPHILS % (AUTO) 0.6 % (0.0-2.0); EOSINOPHILS % (AUTO) 5.5 % (0.0-6.0); HEMATOCRIT 23 % (39-51); HEMOGLOBIN 7.9 g/dL (13.5-17.5); LYMPHOCYTES # (AUTO) 1.1 /CMM (0.8-4.8); LYMPHOCYTES % (AUTO) 19.3 % (20.0-44.0); MEAN CORPUSCULAR HGB CONC 34 g/dl (31.0-36.0); MEAN CORPUSCULAR VOLUME 92 fL (80-96); MONOCYTES # (AUTO) 0.8 /CMM (0.1-1.30); MONOCYTES % (AUTO) 13.6 % (2.0-12.0); NEUTROPHILS # (AUTO) 3.6 /CMM (1.8-8.9); PLATELET COUNT (AUTO) 188 /CMM (150-450); RDW COEFFICIENT OF VARIATION 15.3 (11.5-15.0); RED BLOOD CELL COUNT(AUTO) 2.51 MIL/uL (4.5-6.0); WHITE BLOOD COUNT (AUTO) 5.8 K/uL (4.3-11.0)
[2017-10-16 20:28] LABS: CALCIUM, SERUM 8.5 mg/dL (8.5-10.1); POTASSIUM 4.6 mmol/L (3.5-5.1)
[2017-10-16 20:32] LABS: INR 1.1 (0.85-1.15)
[2017-10-16 20:34] LABS: CREATININE 7.5 mg/dL (0.6-1.3)
[2017-10-16 20:35] LABS: ALBUMIN 2.8 g/dL (3.4-5.0); BILIRUBIN,DIRECT 0.4 mg/dL (0.0-0.2); BILIRUBIN,TOTAL 0.6 mg/dL (0.2-1.0); TOTAL PROTEIN, SERUM 7.2 g/dL (6.4-8.2)
--- NOTE | 2017-10-16 20:53 | NUR ---
ZAC PAGED, STEVE STONER BOARD OPERATOR.
[2017-10-16 20:54] LABS: TROPONIN I 0.07 ng/mL (0.00-0.056)
--- NOTE | 2017-10-16 20:57 | NUR ---
CALLED NURSING SUP. FOR TELE BED
--- NOTE | 2017-10-16 21:21 | NUR ---
PAGED DR. MEZA
--- NOTE | 2017-10-16 21:50 | NUR ---
REPORT GIVEN TO YANNI MARISCAL FOR LYRIC.
[2017-10-16 22:00] VITALS: BP 141/75
--- NOTE | 2017-10-16 22:00 | NUR ---
RN NOTES RECEIVE PT FROM [facility] VIA W/C AT 4175. PT A/O X 4, PT CAN ABLE TO WALK BY HIS BED. TOLERATING ROOM AIR 99%. PT COMPLAINS OF CHRONIC ACHING PAIN IN HIS LOWER BACK AND LOWER LEGS. PT LOWER LEGS APPEARS SWELLING. PT REFUSED SKIN ASSESSMENT PER PATIENT HE DOESNT HAVE WOUNDS. PT DOESNT WANT TO TAKE PICTURES OF HIS SKIN. NEPHRO HAND BRUSH FILLER MADE AWARE. ADMITTED TO MS UNIT UNDER MD CAROLYN MEZA WITH ORDERS NOTED AND CARRIED OUT. SAFETY MEASURES IN PLACE, CALL LIGHT WITHIN REACH, WILL CONTINUE TO MONITOR.
--- NOTE | 2017-10-16 22:20 | NUR ---
PAGED JITTERBUG OPERATOR GROUP SPOKE TO DR. CAROLYN MEZA RELAYED PT COMPLAINING OF BACK PAIN 8-10 CHRONIC ACHING. PER GIVE NORCO 5/325 MG PO 1 TAB Q6 PRN NOTED AND CARRIED OUT VERIFIED AND READ BACK ORDERS.
[2017-10-16 22:30] VITALS: BP 141/75
[2017-10-16] MEDS: HYDROCODONE/APAP 5/325MG 1 EACH TABLET PO PRN (22:40)
[2017-10-16] MEDS ORDERED: ALBUTEROL FS 2.5 MG/3 ML VIAL.NEB NEB PRN (23:30)
[2017-10-16] MEDS ORDERED: INSULIN REGULAR, HUMAN 100 UNIT/ML 3 ML VIAL SQ PRN (23:30)
[2017-10-16] MEDS ORDERED: IPRATROPIUM NEB FS 0.5 MG/2.5 ML AMPUL.NEB NEB PRN (23:30)
[2017-10-16] MEDS ORDERED: ACETAMINOPHEN 325 MG TABLET PO PRN (23:30)
[2017-10-16] MEDS ORDERED: ONDANSETRON HCL/PF 4 MG/2 ML VIAL IV PRN (23:30)
[2017-10-16] MEDS ORDERED: DEXTROSE 50%-WATER 50 ML DISP.SYRIN IV PRN (23:30)
[2017-10-17] MEDS: HYDROCODONE/APAP 5/325MG 1 EACH TABLET PO PRN (05:27)
[2017-10-17] MEDS: BLOOD SUGAR DIAGNOSTIC 1 EACH STRIP IN SCH ×2 (06:01→12:09)
--- NOTE | 2017-10-17 06:08 | NUR ---
MS RN NOTES BS CHECK AC PT EATING NON ADMINISTRATION OF INSULIN PER SLIDING SCALE PT REFUSED MEDICATION PER PATIENT HE DOESNT TAKE INSULIN DESPITE EXPLAINING RISKS AND BENEFITS OFFERED 3 TIMES STILL REFUSED SETTLEMENT TECHNICIAN NEPHRO GROUP MADE AWARE.
--- NOTE | 2017-10-17 06:10 | NUR ---
MS RN NOTES PT REMOVED IV ACCESS PER PATIENT WE DON'T GIVE HIM PAIN MEDICATION VIA IV ANYWAYS. EDUCATED PATIENT ABOUT IV ACCESS PT REFUSED FOR ME TO RE INSERT PER PT IT USELESS DESPITE EXPLAINING RISKS AND BENEFITS OFFERED 3 TIMES STILL REFUSE. NEPHRO CRANK HAND MADE AWARE. PT NON COMPLIANT WITH HIS TREATMENT HE SAID HE IS JUST WAITING FOR HIS DIALYSIS
--- NOTE | 2017-10-17 06:21 | NUR ---
MS RN NOTES PT ASLEEP COMFORTABLY IN BED AND EASILY AWAKEN HEAD OF BED ELEVATED FOR BETTER LUNG EXPANSION AND GOOD CIRCULATION. TOLERATING ROOM AIR 98% NOT IN RESPIRATORY DISTRESS. STABLE CONDITION. NON COMPLIANT. NO ACUTE CHANGES THROUGHOUT THE SHIFT. PT KEPT CLEAN AND DRY AND COMFORT. NURSING CARE RENDERED. NEEDS ATTENDED AND ANTICIPATED. ON LOW BED TO ENSURE SAFETY, CALL LIGHT WITHIN REACH, WILL ENDORSE TO THE NEXT SHIFT CONTINUE PLAN OF CARE
[2017-10-17 06:37] LABS: CALCIUM, SERUM 8.6 mg/dL (8.5-10.1); MAGNESIUM 2.2 mg/dL (1.8-2.4); PHOSPHORUS 6.2 mg/dL (2.5-4.9); POTASSIUM 4.6 mmol/L (3.5-5.1)
[2017-10-17 06:41] LABS: BASOPHILS # (AUTO) 0.1 /CMM (0.0-0.2); BASOPHILS % (AUTO) 1.1 % (0.0-2.0); EOSINOPHILS % (AUTO) 7.2 % (0.0-6.0); HEMATOCRIT 23 % (39-51); HEMOGLOBIN 7.7 g/dL (13.5-17.5); LYMPHOCYTES # (AUTO) 1.2 /CMM (0.8-4.8); LYMPHOCYTES % (AUTO) 21.5 % (20.0-44.0); MEAN CORPUSCULAR HGB CONC 33 g/dl (31.0-36.0); MEAN CORPUSCULAR VOLUME 93 fL (80-96); MONOCYTES # (AUTO) 0.6 /CMM (0.1-1.30); MONOCYTES % (AUTO) 10.9 % (2.0-12.0); NEUTROPHILS # (AUTO) 3.3 /CMM (1.8-8.9); NEUTROPHILS % (AUTO) 59.3 % (43.0-81.0); PLATELET COUNT (AUTO) 190 /CMM (150-450); RDW COEFFICIENT OF VARIATION 16.4 (11.5-15.0); RED BLOOD CELL COUNT(AUTO) 2.47 MIL/uL (4.5-6.0); WHITE BLOOD COUNT (AUTO) 5.6 K/uL (4.3-11.0)
[2017-10-17 06:43] LABS: CREATININE 7.9 mg/dL (0.6-1.3)
--- NOTE | 2017-10-17 06:50 | NUR ---
MS RN NOTES PAGED NEPHRO SUPERVISOR OPERATIONS REPORTING CREATININE 7.9 AWAITING CALL BACK
--- NOTE | 2017-10-17 07:40 | NUR ---
MS RN NOTES PT ASLEEP COMFORTABLY IN BED AND EASILY AROUSABLE DURING CARE.RESPIRATIONS EVEN AND UNLABORED, TOLERATING ROOM AIR 98% NOT IN RESPIRATORY DISTRESS. STABLE CONDITION. NON COMPLIANT, REMOVED IV ACCESS DURING THE NIGHT MD AWARE. LAB RESULT OF HIGH CREATININE 7.9 REPORTED BY SUPERVISOR FEED HOUSE TO DR. CAROLYN MEZA. PT KEPT CLEAN AND DRY AND COMFORTABLE. BED IN LOWEST POSITION, TO ENSURE SAFETY, CALL LIGHT WITHIN REACH, WILL CONTINUE TO MONITOR
[2017-10-17 08:00] VITALS: BP 131/78
--- NOTE | 2017-10-17 08:00 | NUR ---
RN NOTES PATIENT STATING "I JUST WANT DIALYSIS AND GO HOME" DR OLY PERDOMO MADE AWARE WILL CONTINUE TO FOLLOW UP ORDERS AND CONTINUE TO MONITOR
[2017-10-17] MEDS: CALCIUM ACETATE 667 MG TABLET PO SCH ×2 (08:23→12:09)
[2017-10-17] MEDS ORDERED: ASPIRIN EC 81 MG TABLET.DR PO SCH ×2 (09:00)
[2017-10-17] MEDS ORDERED: ISOSORBIDE DINITRATE (5MG) 5 MG TABLET PO SCH (09:00)
[2017-10-17] MEDS ORDERED: hydrALAZINE HCL 50 MG TABLET PO SCH (09:00)
[2017-10-17] MEDS: ISOSORBIDE DINITRATE (5MG) 5 MG TABLET PO SCH ×2 (09:00→12:12)
[2017-10-17] MEDS: hydrALAZINE HCL 50 MG TABLET PO SCH ×2 (09:00→12:11)
[2017-10-17] MEDS ORDERED: APIXABAN 2.5 MG TABLET PO SCH ×2 (09:00)
[2017-10-17] MEDS ORDERED: CARVEDILOL 12.5 MG TABLET PO SCH (09:00)
[2017-10-17] MEDS ORDERED: ALBUMIN 25% 25 GM in PREMIX 1 EA IV PRN (09:30)
--- NOTE | 2017-10-17 09:53 | NUR ---
RN NOTES PATIENT'S BLOOD PRESSURE MEDICATIONS HELD PT TO HAVE DIALYSIS TODAY, MD AWARE, WILL CONTINUE TO MONITOR
[2017-10-17] MEDS ORDERED: EPOETIN ALFA (10,000 UNIT) 10,000 UNIT/ML VIAL IV ONE (10:00)
[2017-10-17 12:12] VITALS: BP 144/77
[2017-10-17] MEDS ORDERED: CALCIUM ACETATE 2001 MG PO SCH (13:00)
--- NOTE | 2017-10-17 14:20 | NUR ---
RN NOTES DIALYSIS TREATMENT COMPLETE 3300 ML OF FLUID REMOVED PER HD RN, PATIENT NOTED GETTING DRESSED AND LOOKING FOR BELONGINGS STATING HE WILL BE LEAVING THE HOSPITAL MADE PT AWARE THAT HE DOES NOT HAVE A DISCHARGE ORDER PER PT "THE DOCTOR SAID I CAN GO AFTER DIALYSIS" WILL CALL DR. PERDOMO
--- NOTE | 2017-10-17 14:30 | NUR ---
RN NOTES CALLED DR. PERDOMO PER OFFICE DR FLANAGAN PROTECTIVE SIGNAL SUPERINTENDENT, LEFT MESSAGE AND CONTINUE TO ASSIST. PATIENT CONTINUES TO STATE THAT HE WILL GO WITH DOCTORS ORDER OR NO DOCTORS ORDER
--- NOTE | 2017-10-17 14:45 | NUR ---
MS RN NOTES PT AWAKE ALERT AND VERBALLY RESPONSIVE, S/P DIALYSIS TREATMENT,PATIENT DRESSED UP IN OWN CLOTHES.RESPIRATIONS EVEN AND UNLABORED, TOLERATING ROOM AIR 98% NOT IN RESPIRATORY DISTRESS, DENIES ANY PAIN OR DISCOMFORT AT THIS TIME STABLE CONDITION. NON COMPLIANT, REMOVED IV ACCESS DURING THE NIGHT MD AWARE, NO IV ACCESS AT THIS TIME.PATIENT CONTINUES TO STATE " I AM LEAVING NOW, PLEASE, I WILL GO AMA BUT I AM GOING" NO RESPONSE FROM DR. FLANAGAN, ID BANDS REMOVED, ACCOMPANIED PT TO LOBBY, DISCHARGED AGAINST MEDICAL ADVICE
[2017-10-17] MEDS ORDERED: INSULIN GLARGINE HUM REC ANLOG SQ SCH (22:00)
[2017-10-17] MEDS ORDERED: INSULIN GLARGINE, 100 UNIT/ML CARTRIDGE SQ SCH (22:00)
[2017-10-17] MEDS ORDERED: ATORVASTATIN 40 MG TABLET PO SCH ×2 (22:00)
== END 2017-10-17 14:45 | disposition left against medical advice (07) | DRG 73 ==
LOC: ER 19:51 → MED 22:03
PROVIDERS: ADMIT Internal Medicine Nephrology; ATTEND Internal Medicine Nephrology
PROC: 5A1D70Z Performance of Urinary Filtration, Intermittent, Less than 6 Hours Per Day (ICD-10-PCS; principal; 2017-10-17)
DX: G90.8 Other disorders of autonomic nervous system (principal); N18.6 End stage renal disease; I21.A1 Myocardial infarction type 2; I13.2 Hypertensive heart and chronic kidney disease with heart failure and with stage 5 chronic kidney disease, or end stage renal disease; E11.22 Type 2 diabetes mellitus with diabetic chronic kidney disease; I48.91 Unspecified atrial fibrillation; D64.9 Anemia, unspecified; I50.9 Heart failure, unspecified; I25.10 Atherosclerotic heart disease of native coronary artery without angina pectoris; Z79.01 Long term (current) use of anticoagulants; E78.5 Hyperlipidemia, unspecified; Z79.4 Long term (current) use of insulin
CPT/HCPCS: 36415; 71045-TC; 80048-TC; 80076-TC; 82962-TC; 83735-TC; 84100-TC; 84484-TC; 85025-TC; 85730-TC; 87081-TC; 90935-TC; A4216; A4606; J0885; J1815; P9047; Z7610

== ENCOUNTER 2017-12-30 15:44 | Inpatient (IN) | payer MEDICARE, OTHER ==
[~2017-12-30] VITALS: Ht 182.9 cm; Wt 113.4 kg
--- NOTE | 2017-12-30 16:00 | NUR ---
PT CAME IN FOR R SIDE CHESTWALL PAIN/HEMATOMA S/P PACEMAKER REMOVAL. C/O GENERALIZED PAIN, NOTED TACHY, RESTLESS. OTHER VSS. AWAITING FOR MD ALFARO. SAFETY AND COMFORT MEASURES PROVIDED. WILL MONITOR.
--- NOTE | 2017-12-30 16:40 | NUR ---
IV ACCESS STARTED. BLOOD DRAWN FOR LABS.
[2017-12-30 16:41] LABS: BASOPHILS % (AUTO) 0.3 % (0.0-2.0); EOSINOPHILS % (AUTO) 3.7 % (0.0-6.0); HEMATOCRIT 25 % (39-51); HEMOGLOBIN 8.3 g/dL (13.5-17.5); LYMPHOCYTES # (AUTO) 1.3 /CMM (0.8-4.8); LYMPHOCYTES % (AUTO) 16.4 % (20.0-44.0); MEAN CORPUSCULAR HEMOGLOBIN 31 PG (26.0-33.0); MEAN CORPUSCULAR HGB CONC 34 g/dl (31.0-36.0); MEAN CORPUSCULAR VOLUME 90 fL (80-96); MONOCYTES # (AUTO) 0.9 /CMM (0.1-1.30); MONOCYTES % (AUTO) 11.4 % (2.0-12.0); NEUTROPHILS # (AUTO) 5.2 /CMM (1.8-8.9); NEUTROPHILS % (AUTO) 68.2 % (43.0-81.0); PLATELET COUNT (AUTO) 172 /CMM (150-450); RDW COEFFICIENT OF VARIATION 16.3 (11.5-15.0); RED BLOOD CELL COUNT(AUTO) 2.72 MIL/uL (4.5-6.0); WHITE BLOOD COUNT (AUTO) 7.7 K/uL (4.3-11.0)
[2017-12-30 16:51] LABS: POTASSIUM 5.2 mmol/L (3.5-5.1)
[2017-12-30 16:55] LABS: INR 1.02 (0.85-1.15)
[2017-12-30 16:57] LABS: MAGNESIUM 2.7 mg/dL (1.8-2.4); PHOSPHORUS 6.7 mg/dL (2.5-4.9)
[2017-12-30 17:01] LABS: CREATININE 8.4 mg/dL (0.6-1.3)
[2017-12-30 17:03] LABS: TROPONIN I 0.027 ng/mL (0.00-0.056)
--- NOTE | 2017-12-30 17:06 | NUR ---
UMA AT BS.
[2017-12-30] MEDS ORDERED: ONDANSETRON HCL/PF 4 MG/2 ML VIAL ONE (17:18)
[2017-12-30] MEDS ORDERED: MORPHINE SULFATE INJ 4 MG/ML DISP.SYRIN ONE (17:19)
[2017-12-30] MEDS ORDERED: MORPHINE SULFATE INJ 2 MG/ML DISP.SYRIN IV ONE (17:30)
[2017-12-30] MEDS ORDERED: ONDANSETRON HCL/PF - ER 4 MG/2 ML VIAL IV ONE (17:30)
[2017-12-30] MEDS ORDERED: HYDROMORPHONE INJ 2 MG/ML DISP.SYRIN ONE (17:53)
[2017-12-30] MEDS ORDERED: HYDROMORPHONE INJ 0.5 MG/0.5 ML SYRINGE IV ONE (18:00)
--- NOTE | 2017-12-30 18:37 | NUR ---
DR LONG WAS PAGED FOR MD TO MD CALL.
--- NOTE | 2017-12-30 18:39 | NUR ---
CALLED NURSING SUP AND REQUESTED TELE BED FOR THIS PT.
--- NOTE | 2017-12-30 19:50 | NUR ---
RECEIVED REPORT FROM YVES, PATIENT IS BEING ADMITTED TO TELEMETRY FLOOR.
[2017-12-30] MEDS ORDERED: HYDROCODONE/APAP 5/325MG 1 EACH TABLET PO PRN (20:00)
[2017-12-30] MEDS ORDERED: DEXTROSE 50%-WATER 50 ML DISP.SYRIN IV PRN (20:00)
[2017-12-30] MEDS ORDERED: ONDANSETRON HCL/PF 4 MG/2 ML VIAL IVP PRN (20:00)
[2017-12-30] MEDS ORDERED: ACETAMINOPHEN 325 MG TABLET PO PRN (20:00)
[2017-12-30] MEDS ORDERED: MAGNESIUM HYDROXIDE 30 ML UDC PO PRN (20:00)
[2017-12-30] MEDS ORDERED: MAG HYDROX/AL HYDROX/SIMETH 30 ML UDC PO PRN (20:00)
--- NOTE | 2017-12-30 20:00 | NUR ---
SPECTROGRAPH OPERATORELECTRIC POWER SUPERINTENDENT NOTE RECEIVED PATIENT ON A GURNEY, ADMITTED FROM ER. ALERT ORIENTED X4, ON ROOM AIR, TOLERATING WELL. ABLE TO AMBULATE TO BED. PATIENT REPORTS SEVERE 8-9/10 GENERALIZED PAIN, MORE PROMINENT IN LOWER EXTREMITIES AND RIGHT CHEST. RIGHT HAND 20 G IVC, SL. PATENT AND INTACT. PLACED ON STAFF DEVELOPMENT COORDINATOR, A-FIB WITH HR OF 110. PATIENT WITH LEFT CHEST WALL NGOZI CATH FOR HD WHICH HE GET EVERY M,W,F. DRESSING INTACT. LAST HD RECEIVED LAST THURSDAY THE . PATIENT MADE COMFORTABLE IN BED, FULL BODY ASSESSMENT PERFORMED, SKIN CHECKED FOR IMPAIRMENTS, PHOTOS TAKEN PLACED IN CHART, VITAL SIGNS TAKEN AND RECORDED. ALL BELONGINGS ARE CHECKED AND ACCOUNTED FOR. SAFETY MEASURES APPLIED, BED IN LOW LOCKED POSITION, SIDE RAILS UP X2, CALL LIGHT WITHIN EASY REACH, WILL CARRY OUT ALL THE ADMISSION ORDERS AND CONTINUE TO MONITOR.
--- NOTE | 2017-12-30 20:01 | NUR ---
ASSIGNED TO [facility]#: [id number], DX: FLUID OVERLOAD, ACCEPTING: ADRYAN JOHNSON
--- NOTE | 2017-12-30 20:02 | NUR ---
REPORT GIVEN TO SILAS
[2017-12-30 20:30] VITALS: BP 133/74
[2017-12-30] MEDS ORDERED: SODIUM POLYSTYRENE SULFONATE 15 G/60 ML BOTTLE PO ONE (20:30)
--- NOTE | 2017-12-30 21:00 | NUR ---
PATIENT REFUSED KAYEXELATE. AWARE.
[2017-12-30 22:00] VITALS: BP 169/94
[2017-12-30] MEDS: INSULIN GLARGINE, 100 UNIT/ML CARTRIDGE SQ SCH (22:00)
[2017-12-30] MEDS: BLOOD SUGAR DIAGNOSTIC 1 EACH STRIP IN SCH (22:04)
[2017-12-30] MEDS: ATORVASTATIN 40 MG TABLET PO SCH (22:05)
[2017-12-30] MEDS: MORPHINE SULFATE INJ 2 MG/ML DISP.SYRIN IV PRN (22:12)
[2017-12-30] MEDS: LORAZEPAM 1 MG TABLET PO PRN (23:31)
[2017-12-31] VITALS (7 sets, daily range): BP systolic 144–166; BP diastolic 69–90
[2017-12-31] MEDS: MORPHINE SULFATE INJ 2 MG/ML DISP.SYRIN IV PRN ×2 (03:27→09:03)
--- NOTE | 2017-12-31 06:13 | NUR ---
ENGLISH PROFESSOR CLOSING NOTE PATIENT IN BED, SLEEPING ,EASILY AROUSED WITH VERBAL STIMULI, ORIENTEDX4. ON ROOM AIR TOLERATING WELL. IN NO APPARENT DISTRESS OR DISCOMFORT AT THIS TIME. RESPIRATIONS EVEN AND UNLABORED. DENIES PAIN AND SOB AT THIS TIME. ARTIST MODEL SHOWS A-FIB WITH HR OF 88. PATIENT WITH BRP. ABLE TO AMBULATE INDEPENDENTLY. WAS PLACED ON RENAL DIET. PATIENT WITH RIGHT HAND IVC 22G, SL, PATENT AND INTACT. LEFT CHEST WALL NGOZI CATH FOR HD, DRESSING INTACT AND CLEAN. VITAL SIGNS ARE STABLE. PATIENT SLEPT THROUGH THE NIGHT. KEPT CLEAN AND COMFORTABLE, ALL NEEDS ATTENDED. SAFETY MEASURES IN PLACE, BED IN LOW LOCKED POSITION. SIDE RAILS UPX2, CALL LIGHT WITHIN EASY REACH. WILL ENDORSE TO AM NURSE FOR LYRIC.
[2017-12-31 06:52] LABS: BASOPHILS % (AUTO) 0.7 % (0.0-2.0); HEMATOCRIT 24 % (39-51); HEMOGLOBIN 8.1 g/dL (13.5-17.5); LYMPHOCYTES # (AUTO) 1.1 /CMM (0.8-4.8); LYMPHOCYTES % (AUTO) 17.8 % (20.0-44.0); MEAN CORPUSCULAR HEMOGLOBIN 32 PG (26.0-33.0); MEAN CORPUSCULAR HGB CONC 34 g/dl (31.0-36.0); MEAN CORPUSCULAR VOLUME 94 fL (80-96); MONOCYTES # (AUTO) 0.7 /CMM (0.1-1.30); MONOCYTES % (AUTO) 12.3 % (2.0-12.0); NEUTROPHILS # (AUTO) 3.8 /CMM (1.8-8.9); NEUTROPHILS % (AUTO) 64.2 % (43.0-81.0); PLATELET COUNT (AUTO) 142 /CMM (150-450); RDW COEFFICIENT OF VARIATION 17.1 (11.5-15.0); RED BLOOD CELL COUNT(AUTO) 2.57 MIL/uL (4.5-6.0)
[2017-12-31 07:06] LABS: CALCIUM, SERUM 8.8 mg/dL (8.5-10.1); MAGNESIUM 2.6 mg/dL (1.8-2.4); POTASSIUM 5.3 mmol/L (3.5-5.1)
[2017-12-31] MEDS: BLOOD SUGAR DIAGNOSTIC 1 EACH STRIP IN SCH ×4 (07:08→21:15)
--- NOTE | 2017-12-31 07:30 | NUR ---
ORGANIC GARDENING TEACHER NOTES PT IN BED, AWAKE, ALERT AND ORIENTED, NO COMPLAINT OF PAIN AT THIS TIME, RESPIRATIONS NORMAL AND NOT LABORED, CALL LIGHT WITHIN REACH, NEEDS ATTENDED.
[2017-12-31] MEDS: CALCIUM ACETATE 667 MG TABLET PO SCH ×3 (08:00→17:34)
[2017-12-31] MEDS: ASPIRIN EC 81 MG TABLET.DR PO SCH (08:55)
[2017-12-31] MEDS: PANTOPRAZOLE 40 MG TABLET.DR PO SCH (08:55)
[2017-12-31] MEDS: CARVEDILOL 12.5 MG TABLET PO SCH ×2 (09:00→17:33)
[2017-12-31] MEDS: ISOSORBIDE DINITRATE (5MG) 5 MG TABLET PO SCH ×3 (09:00→17:34)
[2017-12-31] MEDS ORDERED: APIXABAN 2.5 MG TABLET PO ONE (09:00)
[2017-12-31] MEDS: hydrALAZINE HCL 50 MG TABLET PO SCH ×3 (09:00→17:33)
--- NOTE | 2017-12-31 09:00 | NUR ---
WORKSITE WELLNESS PRACTITIONER NOTES BP MEDS HELD, PT WILL HAVE DIALYSIS TODAY.
--- NOTE | 2017-12-31 11:28 | NUR ---
DRAMA THERAPIST NOTES PT AWAKE, SITTING IN BED, PAIN MEDICATION GIVEN FOR PAIN MANAEMENT, PT SEEN BY DR. MONROE AND VICKIE PIPE CLEANING MACHINE OPERATOR, PLAN OF CARE DISCUSSED WITH PT, VERBALIZED UNDERSTANDING, PT ALSO SEEN BY DR. NAVARRO FOR RIGHT CHEST WALL HEMATOMA, NEEDS ATTENDED.
[2017-12-31] MEDS ORDERED: EPOETIN ALFA (10,000 UNIT) 10,000 UNIT/ML VIAL IV ONE (12:00)
--- NOTE | 2017-12-31 12:00 | NUR ---
PRINCIPAL IOS DEVELOPER NOTES PT REFUSED EPOGEN INJECTION, EXPLAINED RISKS AND BENEFITS, STILL REFUSED.
--- NOTE | 2017-12-31 13:00 | NUR ---
ORGANIC GARDENING TEACHER NOTES BP MEDS HELD, PT WITH ONGOING DIALYSIS, BP 148/87.
[2017-12-31] MEDS ORDERED: FEE PK DOSING 1 MIN EA MC ONE (14:13)
[2017-12-31] MEDS ORDERED: VANCOMYCIN 1.25 GM in IV D5W 500 ML IV ONE (14:30)
[2017-12-31] MEDS ORDERED: VANCOMYCIN 500 MG in IV D5W 100 ML IV PRN (14:30)
[2017-12-31] MEDS ORDERED: PIPERACILLIN /TAZOBACTAM 2.25 G in IV D5W 50 ML IV SCH (14:30)
[2017-12-31] MEDS: MORPHINE SULFATE INJ 4 MG/ML DISP.SYRIN IV PRN ×2 (15:42→21:21)
[2017-12-31] MEDS ORDERED: HYDROMORPHONE INJ 2 MG/ML DISP.SYRIN IV ONE (17:00)
--- NOTE | 2017-12-31 17:02 | NUR ---
CARTRIDGE FEEDER NOTES DR. NAVARRO AT PT'S BEDSIDE, EXPLAINED PROCEDURE FOR DEBRIDEMENT OF RIGHT CHEST WALL WOUND TO PT, VERBALIZED UNDERSTANDING, CONSENT GIVEN BY PT, PROCEDURE PERFORMED BY DR. NAVARRO AT BEDSIDE, TOLERATED WELL, PAIN MEDICATION GIVEN ORDERED, WOUND CULTURE SENT TO LAB, TREATMENT ORDERS OBTAINED FROM .
[2017-12-31] MEDS: PIPERACILLIN /TAZOBACTAM 2.25 G in IV D5W 50 ML IV SCH (17:32)
[2017-12-31] MEDS: ELIQUIS PO SCH (17:33)
[2017-12-31] MEDS ORDERED: PIPERACILLIN /TAZOBACTAM 3.375 G in IV D5W 50 ML IV SCH (18:00)
--- NOTE | 2017-12-31 18:23 | NUR ---
LENS AND FRAMES PRESCRIPTION CLERK NOTES PT AWAKE, SITTING IN BED, SPEAKING ON HIS PHONE, NO BLEEDING NOTED TO RIGHT CHEST WALL S/P DEBRIDEMENT SITE, WILL CONTINUE TO MONITOR, STARTED ON IV ATB, TOLERATING WELL, PM MEDS GIVEN ORDERED, ALL NEEDS ATTENDED.
--- NOTE | 2017-12-31 19:00 | NUR ---
MARKETING EFFECTIVENESS MANAGER OPENING NOTE RECEIVE PATIENT IS RESTING IN BED, A/O X 4 NO FACIAL GRIMACING NOTED FOR PAIN. NO SOB OR DISTRESS NOTED, CALL LIGHT WITHIN REACH. SAFETY MEASURES IMPLEMENTED. WILL CONTINUE TO MONITOR THROUGHOUT SHIFT.
[2017-12-31] MEDS: ATORVASTATIN 40 MG TABLET PO SCH (21:12)
[2017-12-31] MEDS: INSULIN GLARGINE, 100 UNIT/ML CARTRIDGE SQ SCH (21:15)
[2017-12-31] MEDS: INSULIN REGULAR, HUMAN 100 UNIT/ML 3 ML VIAL SQ PRN (21:16)
--- NOTE | 2017-12-31 21:33 | NUR ---
SHERIFF DETECTIVE NOTES - NON-ADMIN MEDS Patient aware of recent BS 167 . pt Refused Insulin sliding scale regular and the lantus 4 units standard despite explaining risks and benefits. Offered x3 but patient continue to refuse hospitalist supervisor concrete pipe plant made aware pt a/o x4
[2017-12-31] MEDS: LORAZEPAM 1 MG TABLET PO PRN (23:56)
[2018-01-01] VITALS: BP 111/60
[2018-01-01] MEDS: PIPERACILLIN /TAZOBACTAM 2.25 G in IV D5W 50 ML IV SCH ×2 (01:02→10:10)
[2018-01-01] MEDS: MORPHINE SULFATE INJ 4 MG/ML DISP.SYRIN IV PRN ×5 (01:26→21:27)
[2018-01-01 04:00] VITALS: BP 109/56
[2018-01-01] MEDS: BLOOD SUGAR DIAGNOSTIC 1 EACH STRIP IN SCH ×4 (05:44→21:26)
[2018-01-01] MEDS: INSULIN REGULAR, HUMAN 100 UNIT/ML 3 ML VIAL SQ PRN ×2 (05:45→21:32)
--- NOTE | 2018-01-01 06:07 | NUR ---
FIELD REP CLOSING NOTES PT COMFORTABLY ASLEEP AND EASILY AWAKEN, TOLERATING ROOM AIR 96% IN STABLE CONDITION. RESPIRATION EVEN AND UNLABORED. KEPT CLEAN AND DRY AND COMFORTABLE, ALL NURSING CARE RENDERED. NEEDS ATTENDED AND ANTICIPATED, GOOD SKIN CARE PROVIDED. FREQUENT VISUAL CHECK DONE FOR SAFETY EVERY 2 HOURS. ON LOW BED AT ALL TIMES TO ENSURE SAFETY. SAFE HAZARD FREE ENVIRONMENT PROVIDED. NO COMPLAINS OF PAIN. CALL LIGHT WITHIN EASY TO REACH. WILL ENDORSE NEXT SHIFT CONTINUITY OF CARE.
[2018-01-01 06:44] LABS: BASOPHILS % (AUTO) 0.6 % (0.0-2.0); EOSINOPHILS % (AUTO) 4.9 % (0.0-6.0); HEMATOCRIT 24 % (39-51); HEMOGLOBIN 7.8 g/dL (13.5-17.5); LYMPHOCYTES # (AUTO) 0.9 /CMM (0.8-4.8); MEAN CORPUSCULAR HEMOGLOBIN 32 PG (26.0-33.0); MEAN CORPUSCULAR HGB CONC 33 g/dl (31.0-36.0); MEAN CORPUSCULAR VOLUME 94 fL (80-96); MONOCYTES # (AUTO) 0.6 /CMM (0.1-1.30); MONOCYTES % (AUTO) 11.1 % (2.0-12.0); NEUTROPHILS % (AUTO) 68.4 % (43.0-81.0); PLATELET COUNT (AUTO) 145 /CMM (150-450); RDW COEFFICIENT OF VARIATION 17.1 (11.5-15.0); RED BLOOD CELL COUNT(AUTO) 2.49 MIL/uL (4.5-6.0); WHITE BLOOD COUNT (AUTO) 5.8 K/uL (4.3-11.0)
[2018-01-01 06:55] LABS: CALCIUM, SERUM 8.3 mg/dL (8.5-10.1); CREATININE 7.3 mg/dL (0.6-1.3); POTASSIUM 4.8 mmol/L (3.5-5.1)
--- NOTE | 2018-01-01 07:29 | NUR ---
MS RN OPENING NOTES RECEIVED PATIENT AWAKE AND SITTING IN HIS BED IN NO ACUTE SIGNS OF DISTRESS. A/O X4. ABLE TO VERBALIZED NEEDS WITH NO C/O PAIN OR DISCOMFORTS VOICED AT THIS TIME. ON ROOM AIR, TOLERATING WELL WITH NO SOB NOTED. IV ACCESS ON RIGHT HAND INTACT AND PATENT. LCW NGOZI CATHETER IN PLACE WITH NO BLEEDING OR INFECTION AT SITE NOTED. BED IN LOW/LOCKED POSITION. CALL LIGHT WITHIN REACH. SAFETY MEASURES MAINTAINED. WILL CONTINUE TO MONITOR PT ACCORDINGLY..
[2018-01-01 08:00] VITALS: BP 123/75
[2018-01-01] MEDS: PANTOPRAZOLE 40 MG TABLET.DR PO SCH (08:07)
[2018-01-01] MEDS: CALCIUM ACETATE 667 MG TABLET PO SCH ×3 (08:08→17:20)
[2018-01-01] MEDS: ASPIRIN EC 81 MG TABLET.DR PO SCH (08:08)
[2018-01-01] MEDS: CARVEDILOL 12.5 MG TABLET PO SCH ×2 (08:09→16:36)
[2018-01-01] MEDS: hydrALAZINE HCL 50 MG TABLET PO SCH ×3 (08:09→16:36)
[2018-01-01] MEDS: ELIQUIS PO SCH ×2 (08:10→16:33)
[2018-01-01] MEDS: ISOSORBIDE DINITRATE (5MG) 5 MG TABLET PO SCH ×3 (08:10→16:36)
--- NOTE | 2018-01-01 09:48 | NUR ---
RN NOTES PATIENT COMPLAINED OF PAIN ON HIS RIGHT UPPER CHESS WALL, 8/10 PAIN SCALE. PRN MORPHINE 4MG IVP GIVEN ORDERED. WILL CONTINUE TO MONITOR.
--- NOTE | 2018-01-01 13:58 | NUR ---
RN NOTES PATIENT COMPLAINED OF PAIN ON HIS RIGHT UPPER CHEST WALL WOUND, 9/10 PAIN SCALE. PRN MORPHINE 4MG IVP GIVEN ORDERED. DRESSING ON RCW WOUND INTACT AND WITH SMALL AMOUNT OF BLEEDING NOTED. DRESSING CHANGED. WILL CONTINUE TO MONITOR.
[2018-01-01 16:00] VITALS: BP 136/76
--- NOTE | 2018-01-01 16:59 | NUR ---
RN NOTES PATIENT STARTED HEMODIALYSIS VIA LEFT NGOZI CATHETER JUST NOW BY DIALYSIS NURSE [place]. PRE-HD V/S : BP 91/45MMHG, P 98, R 18 AND T 97.8F, WILL CONTINUE TO MONITOR
--- NOTE | 2018-01-01 17:26 | NUR ---
RN NOTES PT WITH ORDER TO GIVE VANCOMYCIN IV PRN POST HD. CALLED AND CLARIFIED ORDER TO PHARMACIST STEVE IF IT WILL BE GIVEN TODAY POST HDIALYSIS. HE SAID TO HOLD IT BECAUSE THE LEVEL IS HIGH 23. WILL CONTINUE TO MONITOR
--- NOTE | 2018-01-01 18:43 | NUR ---
MS RN CLOSING NOTES PATIENT RESTING IN BED WITH HEMODIALYSIS STILL ONGOING AT THIS TIME. A/O X4. ABLE TO VERBALIZED NEEDS AND CONCERNS. ON ROOM AIR, TOLERATING WELL WITH NO SOB NOTED. DRESSING ON RCW INTACT AND DRY AT THIS TIME. IV ACCESS ON RIGHT HAND INTACT AND PATENT. LCW NGOZI CATHETER IN PLACE WITH NO BLEEDING OR INFECTION AT SITE NOTED. ALL SAFETY MEASURES KEPT IN PLACE. HOB KEPT ELEVATED. BED IN LOW/LOCKED POSITION. CALL LIGHT WITHIN REACH. ALL NEEDS AND CARE ATTENDED WELL. WILL ENDORSE TO WAREHOUSE DISTRIBUTION ASSOCIATE NURSE FOR LYRIC.
--- NOTE | 2018-01-01 18:52 | NUR ---
RN NOTES FARHEEN BO CAME TO UNIT WITH ORDER TO DISCONTINUE ABX ZOSYN IV AND TO START ON ABX ROCEPHIN IGM IV Q24HRS. WILL CONTINUE TO MONITOR.
--- NOTE | 2018-01-01 18:55 | NUR ---
RN NOTES HEMODIALYSIS JUST FINISHED NOW, NO ADVERSE REACTIONS/EFFECTS NOTED DURING DIALYSIS. POST HD V/S: BP 115/56MMHG, P 88, R 18 AND T 97.8F. WILL ENDORSE TO VOCATIONAL EDUCATION TEACHER NURSE.
--- NOTE | 2018-01-01 19:00 | NUR ---
MS RN OPENING NOTE RECEIVE PATIENT SLEEPING IN BED, A/O X 4 NO FACIAL GRIMACING NOTED FOR PAIN. NO SOB OR DISTRESS NOTED, CALL LIGHT WITHIN REACH. SAFETY MEASURES IMPLEMENTED. WILL CONTINUE TO MONITOR THROUGHOUT SHIFT.
[2018-01-01] MEDS: CEFTRIAXONE 1 G in IV NS 0.9% 50 ML IV SCH (19:05)
[2018-01-01 20:00] VITALS: BP 116/71
[2018-01-01] MEDS: INSULIN GLARGINE, 100 UNIT/ML CARTRIDGE SQ SCH (21:26)
[2018-01-01] MEDS: ATORVASTATIN 40 MG TABLET PO SCH (21:26)
[2018-01-01] MEDS: LORAZEPAM 1 MG TABLET PO PRN (21:27)
--- NOTE | 2018-01-01 21:36 | NUR ---
MS RN NOTES -NON ADMIN INSULIN Patient aware of recent BS 137 . pt Refused Insulin sliding scale regular and the lantus 4 units standard despite explaining risks and benefits. Offered x3 but patient continue to refuse hospitalist collection technician made aware pt a/o x4
[2018-01-02] MEDS: MORPHINE SULFATE INJ 4 MG/ML DISP.SYRIN IV PRN ×5 (03:13→22:05)
[2018-01-02] MEDS: BLOOD SUGAR DIAGNOSTIC 1 EACH STRIP IN SCH ×4 (05:47→22:00)
[2018-01-02] MEDS: INSULIN REGULAR, HUMAN 100 UNIT/ML 3 ML VIAL SQ PRN (05:48)
--- NOTE | 2018-01-02 06:12 | NUR ---
MS RN CLOSING NOTES PT IN BED ASLEEP AND EASILY AWAKEN, TOLERATING ROOM AIR 98% STABLE CONDITION. RESPIRATION EVEN AND UNLABORED. DENIES PAIN, KEPT CLEAN AND DRY AND COMFORTABLE, ALL NURSING CARE RENDERED. NEEDS ATTENDED AND ANTICIPATED, GOOD SKIN CARE PROVIDED. FREQUENT VISUAL CHECK DONE FOR SAFETY EVERY 2 HOURS. ON LOW BED AT ALL TIMES TO ENSURE SAFETY. SAFE HAZARD FREE ENVIRONMENT PROVIDED. CALL LIGHT WITHIN EASY TO REACH. WILL ENDORSE NEXT SHIFT CONTINUITY OF CARE.
--- NOTE | 2018-01-02 07:45 | NUR ---
RN OPENING NOTES RECEIVED PT. PT IS STABLE ANDR ESTING IN BED. NO S/S OF RESP DISTRESS OR SOB. NO C/O PAIN AT THIS TIME. PT HAS RCW INCISION FROM PREVIOUS PACEMAKER PLACEMENT. S/P DEBRIDEMENT ON 12/31. NGOZI CATH NOTED ON LCW, PT'S LAST HD ON 01/01/18. IV ACCESS LOCATED ON RIGHT HAND 20G, CURRENTLY SL. SAFETY MEASURES IN PLACE, CALL LIGHT WITHIN REACH. WILL CONTINUE TO MONITOR.
[2018-01-02 08:00] VITALS: BP 143/79
[2018-01-02] MEDS: hydrALAZINE HCL 50 MG TABLET PO SCH ×3 (08:30→16:53)
[2018-01-02] MEDS: CARVEDILOL 12.5 MG TABLET PO SCH ×2 (08:30→16:53)
[2018-01-02] MEDS: PANTOPRAZOLE 40 MG TABLET.DR PO SCH (08:30)
[2018-01-02] MEDS: ASPIRIN EC 81 MG TABLET.DR PO SCH (08:30)
[2018-01-02] MEDS: CALCIUM ACETATE 667 MG TABLET PO SCH ×3 (08:30→18:00)
[2018-01-02] MEDS: ISOSORBIDE DINITRATE (5MG) 5 MG TABLET PO SCH ×3 (08:31→16:53)
[2018-01-02] MEDS: ELIQUIS PO SCH ×2 (08:31→16:53)
[2018-01-02 10:24] LABS: BASOPHILS % (AUTO) 0.6 % (0.0-2.0); EOSINOPHILS % (AUTO) 4.2 % (0.0-6.0); HEMATOCRIT 26 % (39-51); HEMOGLOBIN 8.5 g/dL (13.5-17.5); LYMPHOCYTES # (AUTO) 0.6 /CMM (0.8-4.8); LYMPHOCYTES % (AUTO) 10.2 % (20.0-44.0); MEAN CORPUSCULAR HEMOGLOBIN 31 PG (26.0-33.0); MEAN CORPUSCULAR HGB CONC 33 g/dl (31.0-36.0); MEAN CORPUSCULAR VOLUME 94 fL (80-96); MONOCYTES # (AUTO) 0.5 /CMM (0.1-1.30); MONOCYTES % (AUTO) 8.3 % (2.0-12.0); NEUTROPHILS # (AUTO) 4.5 /CMM (1.8-8.9); NEUTROPHILS % (AUTO) 76.7 % (43.0-81.0); PLATELET COUNT (AUTO) 190 /CMM (150-450); RDW COEFFICIENT OF VARIATION 17.3 (11.5-15.0); RED BLOOD CELL COUNT(AUTO) 2.73 MIL/uL (4.5-6.0); WHITE BLOOD COUNT (AUTO) 5.9 K/uL (4.3-11.0)
[2018-01-02 10:37] LABS: CALCIUM, SERUM 8.5 mg/dL (8.5-10.1); CREATININE 6.2 mg/dL (0.6-1.3)
[2018-01-02 10:41] LABS: IRON, SERUM 29 ug/dl (50-175); TOTAL IRON BINDING CAPACITY 250 ug/dl (250-450)
[2018-01-02 10:53] LABS: FERRITIN 433 ng/mL (8-388)
--- NOTE | 2018-01-02 15:00 | NUR ---
RN NOTE PT REFUSING INSERTION OF PICC LINE, STATING "I'LL GET THE PICC LINE WHEN THE FINAL RESULTS OF THE CULTURES ARE IN." OF 01/02/18 ALL CULTURES SHOW NO GROWTH AT PRELIMINARY RESULTS. WILL CONTINUE TO MONITOR.
[2018-01-02 16:00] VITALS: BP 141/74
--- NOTE | 2018-01-02 17:29 | NUR ---
RN NOTES PT REFUSED NOON TIME ACCUCHECK. 1700 ACCUCHECK PERFORMED, WITH BS OF 137. PT REFUSED SLIDING SCALE COVERAGE.
[2018-01-02] MEDS: CEFTRIAXONE 1 G in IV NS 0.9% 50 ML IV SCH (19:32)
--- NOTE | 2018-01-02 19:35 | NUR ---
RN CLOSING NOTES PT IN BED RESTING. NO S/S OF SOB OR RESP DISTRESS. NO C/O PAIN AT THIS TIME. ALL PT NEEDS ANTICIPATED AND MET. SAFETY MEASURES IN PLACE, CALL LIGHT IN REACH. WILL ENDORSE TO CIRCUIT TESTER FOR LYRIC.
--- NOTE | 2018-01-02 19:45 | NUR ---
MS/BLACK LEATHER TRIMMER; RECEIVED PT IN BED SLEEPING . BREATHING NON LABORED. BED ON LOWER POSITION AND LOCKED FOR SAFETY. SIDE RAILS X2 ARE UP FOR SAFETY. CALL LIGHT WITHIN REACH. WILL CONTINUE TO MONITOR.
[2018-01-02 20:00] VITALS: BP 112/56
[2018-01-02] MEDS: INSULIN GLARGINE, 100 UNIT/ML CARTRIDGE SQ SCH (22:00)
--- NOTE | 2018-01-02 22:00 | NUR ---
MS/CHIEF WARDEN; BS 135 PT REFUSED COVERAGE. ALSO REFUSED LANTUS 4 UNITS SQ .
--- NOTE | 2018-01-02 22:00 | NUR ---
MS/TECHNICAL SYSTEMS ARCHITECT; C/O GEN. PAIN WITH PAIN LEVEL 9 OUT OF 10 . PT WANTS PAIN SHOT. BP 142/67 , P 88 AND RN PATSY WAS INFORMED FOR PT'S PAIN SHOT.
[2018-01-02] MEDS: ATORVASTATIN 40 MG TABLET PO SCH (22:20)
--- NOTE | 2018-01-02 22:25 | NUR ---
MS/MANAGER MACHINE; PT WANTS ATIVAN . ATIVAN 1 MG PO HS PRN GIVEN ORDERED.
[2018-01-02] MEDS: LORAZEPAM 1 MG TABLET PO PRN (22:27)
--- NOTE | 2018-01-03 02:30 | NUR ---
MS/MORTGAGE PROFESSIONAL; PT WANT C/O GEN. PAIN WITH PAIN LEVEL 8 OUT 10. BP 131/ 85 ,P 89. I TOLD THE RN , PATSY FOR PT'S PAIN SHOT.
[2018-01-03] MEDS: MORPHINE SULFATE INJ 4 MG/ML DISP.SYRIN IV PRN ×2 (02:36→08:28)
--- NOTE | 2018-01-03 06:30 | NUR ---
MS/ATOMIC PHYSICS PROFESSOR;' BS 115 NO COVERAGE. RCW WOUND DRESSING CHANGED.
[2018-01-03] MEDS: BLOOD SUGAR DIAGNOSTIC 1 EACH STRIP IN SCH (06:37)
--- NOTE | 2018-01-03 07:00 | NUR ---
MS/SDC TEACHER; PT REFUSED HER CATAPRES AT O500. ALSO REFUSED BS CHECKED AT O630. WILL CONTINUE TO MONITOR. WILL ENDORSE TO THE DAY SHIFT NURSE.
--- NOTE | 2018-01-03 07:00 | NUR ---
MS/SET DECORATOR; SLEPT AT INTERVALS, WILL ENDORSE TO THE DAY SHIFT.
--- NOTE | 2018-01-03 07:30 | NUR ---
RN OPENING NOTES RECEIVED PT. PT IS STABLE AND RESTING IN BED. NO S/S OF RESP DISTRESS OR SOB. NO C/O PAIN AT THIS TIME. PT HAS RCW WOUND FROM PREVIOUS PACEMAKER PLACEMENT. S/P DEBRIDEMENT ON 12/31, WOUND DRESSING INTACT AND UNSATURATED. NGOZI CATH NOTED ON LCW, PT'S LAST HD ON 01/01/18. IV ACCESS LOCATED ON RIGHT HAND 20G, CURRENTLY SL. SAFETY MEASURES IN PLACE, CALL LIGHT WITHIN REACH. WILL CONTINUE TO MONITOR.
[2018-01-03 08:00] VITALS: BP 141/79
[2018-01-03 08:23] LABS: CALCIUM, SERUM 8.5 mg/dL (8.5-10.1); CREATININE 7.2 mg/dL (0.6-1.3); POTASSIUM 5.1 mmol/L (3.5-5.1)
[2018-01-03] MEDS: CALCIUM ACETATE 667 MG TABLET PO SCH (08:36)
[2018-01-03] MEDS: PANTOPRAZOLE 40 MG TABLET.DR PO SCH (08:39)
[2018-01-03] MEDS: ASPIRIN EC 81 MG TABLET.DR PO SCH (08:39)
[2018-01-03] MEDS: hydrALAZINE HCL 50 MG TABLET PO SCH (09:00)
[2018-01-03] MEDS: ISOSORBIDE DINITRATE (5MG) 5 MG TABLET PO SCH (09:00)
[2018-01-03] MEDS: CARVEDILOL 12.5 MG TABLET PO SCH (09:00)
[2018-01-03] MEDS: ELIQUIS PO SCH (09:00)
--- NOTE | 2018-01-03 10:30 | NUR ---
DISCHARGE NOTE PT LEFT HOSPITAL AMA. WAS MADE AWARE OF THE RISKS OF LEAVING AMA AND THE BENEFITS TO CONTINUING HOSPITALIZATION, HOWEVER PT INSISTS ON LEAVING. BELONGINGS FORM AND AMA FORM SIGNED COPIED AND PLACED IN CHART. PT REFUSED PHOTO DOCUMENTATION OF WOUNDS. PT GIVEN F/U INFORMATION FOR [facility] AND DR. NAVARRO AT WOUND CLINIC. ID BAND AND IV ACCESS REMOVED. PT LEFT HOSPITAL IN PRIVATE CAR.
== END 2018-01-03 10:10 | disposition left against medical advice (07) | DRG 981 ==
LOC: ER 15:49 → TELE 20:23 → MED 01-01 08:29
PROVIDERS: ADMIT Nurse Practitioner Acute Care; ATTEND Nurse Practitioner Acute Care
PROC: 0KBH0ZZ Excision of Right Thorax Muscle, Open Approach (ICD-10-PCS; principal; 2017-12-31)
PROC: 5A1D70Z Performance of Urinary Filtration, Intermittent, Less than 6 Hours Per Day (ICD-10-PCS; 2017-12-31)
PROC: 5A1D70Z Performance of Urinary Filtration, Intermittent, Less than 6 Hours Per Day (ICD-10-PCS; 2018-01-01)
DX: T82.7XXA Infection and inflammatory reaction due to other cardiac and vascular devices, implants and grafts, initial encounter (principal); N18.6 End stage renal disease; I50.23 Acute on chronic systolic (congestive) heart failure; I13.2 Hypertensive heart and chronic kidney disease with heart failure and with stage 5 chronic kidney disease, or end stage renal disease; E44.0 Moderate protein-calorie malnutrition; D68.59 Other primary thrombophilia; M60.08 Infective myositis, other site; E11.22 Type 2 diabetes mellitus with diabetic chronic kidney disease; D69.6 Thrombocytopenia, unspecified; E78.5 Hyperlipidemia, unspecified; E66.9 Obesity, unspecified; E83.41 Hypermagnesemia; E87.5 Hyperkalemia; E83.39 Other disorders of phosphorus metabolism; H35.30 Unspecified macular degeneration; I27.20 Pulmonary hypertension, unspecified; I34.0 Nonrheumatic mitral (valve) insufficiency; H54.61 Unqualified visual loss, right eye, normal vision left eye; I25.2 Old myocardial infarction; E88.09 Other disorders of plasma-protein metabolism, not elsewhere classified; E11.42 Type 2 diabetes mellitus with diabetic polyneuropathy; I48.91 Unspecified atrial fibrillation; I25.10 Atherosclerotic heart disease of native coronary artery without angina pectoris; D63.8 Anemia in other chronic diseases classified elsewhere; Z79.01 Long term (current) use of anticoagulants; Z68.33 Body mass index [BMI] 33.0-33.9, adult; R07.89 Other chest pain; M79.81 Nontraumatic hematoma of soft tissue; Z99.2 Dependence on renal dialysis; Z79.4 Long term (current) use of insulin; Y83.8 Other surgical procedures as the cause of abnormal reaction of the patient, or of later complication, without mention of misadventure at the time of the procedure; Y92.009 Unspecified place in unspecified non-institutional (private) residence as the place of occurrence of the external cause
CPT/HCPCS: 36415; 71045-TC; 71250-TC; 80048-TC; 80061-TC; 80202-TC; 82728-TC; 82962-TC; 83540-TC; 83735-TC; 84100-TC; 84484-TC; 85025-TC; 85730-TC; 87040-TC; 87070-TC; 87081-TC; 90935-TC; A4216; A4217; A4606; A6402; A6403; J0696; J0885; J1170; J1815; J2270; J2405; J2543; J3370; J7050; J7060; Z7610

== ENCOUNTER 2018-01-15 12:43 | Inpatient (IN) | payer MEDICARE, OTHER ==
[~2018-01-15] VITALS: Ht 182.9 cm; Wt 119.7 kg
--- NOTE | 2018-01-15 12:49 | NUR ---
[id number] FROM [facility]: DIFFUSE CHEST PAIN SINCE LAST NIGHT. NITRO x 3, ASA 325 GIVEN IN FIELD. DENIES N/V. ALSO C/O BLE PAIN. A/OX 4, BREATHING EVEN AND UNLABORED. NO SOB, NAD, VITALS STABLE. HD CATH PRESENT ON LCW. SAFETY AND COMFORT MEASURES IN PLACE. AWAITING MD ORDERS.
--- NOTE | 2018-01-15 12:50 | NUR ---
NEW IV STARTED ON RIGHT HAND, 20G. BLOOD DRAWN AND SENT TO LAB.
[2018-01-15] MEDS ORDERED: NITROGLYCERIN PACKET 1 GM PACKET TD ONE (13:00)
[2018-01-15] MEDS ORDERED: MORPHINE SULFATE INJ 2 MG/ML DISP.SYRIN ONE (13:00)
[2018-01-15] MEDS ORDERED: MORPHINE SULFATE INJ 2 MG/ML DISP.SYRIN IV ONE (13:00)
--- NOTE | 2018-01-15 13:05 | NUR ---
MEDICATED PATIENT PER MD ORDERS.
[2018-01-15 13:10] LABS: BASOPHILS % (AUTO) 0.2 % (0.0-2.0); EOSINOPHILS % (AUTO) 3.6 % (0.0-6.0); HEMATOCRIT 23 % (39-51); HEMOGLOBIN 7.6 g/dL (13.5-17.5); LYMPHOCYTES # (AUTO) 0.8 /CMM (0.8-4.8); LYMPHOCYTES % (AUTO) 11.6 % (20.0-44.0); MEAN CORPUSCULAR HEMOGLOBIN 31 PG (26.0-33.0); MEAN CORPUSCULAR HGB CONC 34 g/dl (31.0-36.0); MEAN CORPUSCULAR VOLUME 92 fL (80-96); MONOCYTES # (AUTO) 0.5 /CMM (0.1-1.30); MONOCYTES % (AUTO) 7.2 % (2.0-12.0); NEUTROPHILS # (AUTO) 5.2 /CMM (1.8-8.9); NEUTROPHILS % (AUTO) 77.4 % (43.0-81.0); PLATELET COUNT (AUTO) 154 /CMM (150-450); RDW COEFFICIENT OF VARIATION 17.3 (11.5-15.0); RED BLOOD CELL COUNT(AUTO) 2.45 MIL/uL (4.5-6.0); WHITE BLOOD COUNT (AUTO) 6.7 K/uL (4.3-11.0)
[2018-01-15 13:20] LABS: INR 1.13 (0.85-1.15)
[2018-01-15 13:23] LABS: ALBUMIN 2.7 g/dL (3.4-5.0); BILIRUBIN,DIRECT 0.5 mg/dL (0.0-0.2); CALCIUM, SERUM 8.6 mg/dL (8.5-10.1); POTASSIUM 4.2 mmol/L (3.5-5.1); TOTAL PROTEIN, SERUM 7.1 g/dL (6.4-8.2)
[2018-01-15 13:24] LABS: TROPONIN I 0.053 ng/mL (0.00-0.056)
[2018-01-15 13:25] LABS: CREATININE 8.1 mg/dL (0.6-1.3)
[2018-01-15] MEDS ORDERED: CALC667C6 PO (13:34)
[2018-01-15] MEDS ORDERED: CHOL100044 PO (13:34)
[2018-01-15] MEDS ORDERED: VIT-6 PO (13:34)
[2018-01-15] MEDS ORDERED: LOSA50TA21 PO (13:34)
[2018-01-15] MEDS ORDERED: CLON0.3P TD (13:36)
[2018-01-15] MEDS ORDERED: NITROGLYCERIN PACKET 1 GM PACKET ONE (13:50)
--- NOTE | 2018-01-15 14:38 | NUR ---
REPORT GIVEN TO RN, AFSATU FOR LYRIC UPON ADMISSION.
--- NOTE | 2018-01-15 14:55 | NUR ---
PATIENT TRANSPORTED TO [facility] VIA ACLS PROTOCOL. RN, AFSATU TO PROVIDE LYRIC.
[2018-01-15] MEDS ORDERED: DEXTROSE 50%-WATER 50 ML DISP.SYRIN IV PRN (15:00)
[2018-01-15] MEDS: EPOETIN ALFA (10,000 UNIT) 10,000 UNIT/ML VIAL IV ONE ×2 (15:00→19:08)
[2018-01-15] MEDS ORDERED: INSULIN REGULAR, HUMAN 100 UNIT/ML 3 ML VIAL SQ PRN (15:00)
--- NOTE | 2018-01-15 15:00 | NUR ---
WAREHOUSE SHIPPING ASSOCIATECERTIFIED ALCOHOL COUNSELOR NOTES RECEIVED PT FROM ER NURSE IN STABLE CONDITION. PT WILL BE ADMITTED FOR CHEST PAIN UNDER DR. PERDOMO. MADE AWARE THAT PT IS ON THE UNIT AND GAVE TELEPHONE [id number] TO CONTINUE ALL HOME MEDICATIONS, ORDER STANDARD RENAL DIET, ACCU CHECKS ACHS WITH A MILD SLIDING SCALE AND 1800 TROPONIN. ORDERS VERBALLY READ BACK FRO CONFIRMATION. WILL INPUT ORDERS. PT IS/AO X4. NO SOB NOTED. HE STATES THAT HE IS IN 10/10 PAIN. HE DESCRIBES A TIGHT, SHARP, CONSTANT PAIN IN HIS BILATERAL LOWER EXTREMITIES. HE DENIES ANY CHEST PAIN HOWEVER. BELONGINGS FROM ER VERIFIED HOWEVER PT REFUSES FOR RECYCLABLE MATERIALS COLLECTOR OR MYSELF TO TAKE AND INVENTORY OF THE CONTENT IN HIS WALLET. PT ALSO REFUSING TO TAKE OFF HIS PANTS THEREFORE SKIN ASSESSMENT COULD ONLY BE MADE ON EXPOSED SKIN PER PT'S REQUEST. PHOTOS TAKEN AND PLACED IN CHART. PT SR ON THE TELE MONITOR WITH A HR OF 84. HE WAS ORIENTED TO HIS ROOM AND USE OF CALL LIGHT. BED IN LOW LOCKED POSITION, SIDE RAILS UP X2, CALL LIGHT WITHIN REACH. WILL CONTINUE TO MONITOR
[2018-01-15 16:00] VITALS: BP 161/93
[2018-01-15] MEDS ORDERED: CLONIDINE HCL 0.3 MG/24H PTWK 1 EA PATCH TD SCH (16:30)
--- NOTE | 2018-01-15 16:34 | NUR ---
BUSINESS COMPUTERS TEACHER NOTES: PAIN MANAGEMENT ORDERS DR. PERDOMO NOTIFIED THAT OPT IS SCREAMING IN PAIN AND HAS AN ELEVATED BP. TELEPHONE ORDER GIVEN FOR GABAPENTIN 300MG TID AND DILAUDID 1MG IV Q4HR.
[2018-01-15] MEDS ORDERED: HYDROMORPHONE 1 MG/1 ML DISP.SYRIN IV PRN (17:00)
[2018-01-15] MEDS: GABAPENTIN 300 MG CAPSULE PO SCH (17:00)
[2018-01-15] MEDS ORDERED: HYDROMORPHONE HCL 2 MG TABLET PO PRN (17:00)
--- NOTE | 2018-01-15 17:00 | NUR ---
EDGE BURNISHER NOTES: MEDICATION REFUSAL PT REFUSED BOTH EPOGEN AND ELIQUIS. PER PT" I DON'T NEED MY ELIQUIS AND THEY CAN GIVE IT TO ME DURING MY DIALYSIS. MY BLOOD IS ALSO LOW, SO I CAN GET MY ELIQUIS LATER." RISKS AND BENEFITS EXPLAINED
[2018-01-15] MEDS: BLOOD SUGAR DIAGNOSTIC 1 EACH STRIP IN SCH ×2 (17:03→21:15)
[2018-01-15] MEDS: CALCIUM ACETATE 667 MG TABLET PO SCH (17:07)
[2018-01-15] MEDS: APIXABAN 2.5 MG TABLET PO ONE ×2 (17:09→19:07)
--- NOTE | 2018-01-15 17:13 | NUR ---
GYROSCOPE TECHNICIAN NOTES: CATAPRES F/U PT STATES THAT HE NEVER TOOK HIS CATAPRES WHEN D/C DURING HIS ;LAST ADMISSION AND THEREFORE DOES NOT HAVE A WEEKLY DAY. PHARMACIST MADE AWARE
--- NOTE | 2018-01-15 18:45 | NUR ---
REED FIXER NOTES PT REMAINS STABLE. ALL NEEDS MET AND CARRIED OUT ACCORDINGLY. HE REMAINS SR ON THE TELE MONITOR. PAIN PROPERLY MANAGED WITH DILAUDID ADMINISTRATION. SAFETY MEASURES REMAIN IN PLACE. WILL ENDORSE TO NIGHTSHIFT NURSE FOR LYRIC
[2018-01-15] MEDS: HYDROMORPHONE INJ 2 MG/ML DISP.SYRIN IV PRN ×2 (18:53→21:10)
--- NOTE | 2018-01-15 19:30 | NUR ---
MSRN FULLY AWAKE, SITTING ON THE EDGE OF BED, HD ON PROGRESS. JUST FINISHED DINNER, ATE 100%. NO NEEDS FOR NOW, SR ON THE MONITOR. CLOSELY WATCHED.
--- NOTE | 2018-01-15 20:20 | NUR ---
TELERN VERBALIZES PAIN ON LOWER EXTREMITIES, STATED HAD PAIN MED AT 5 PM TODAY PRIOR TO HD. REVIEWED PAIN MGT. UPSET REGARDING PAIN MED . INSISTED TO HAVE PAIN MED AT 2100 4HRS AFTER 5PM DOSE PATIENT STATED. TO CONTINUE. WARM COMPRESS OVER AFFECTED AREAS APPLIED. HAD 2.5L OUT FROM HD. ELEVATED BP.
[2018-01-15 20:57] VITALS: BP 163/97
[2018-01-15] MEDS: CARVEDILOL 12.5 MG TABLET PO SCH (21:14)
[2018-01-15] MEDS ORDERED: INSULIN GLARGINE, 100 UNIT/ML CARTRIDGE SQ SCH (22:00)
[2018-01-15] MEDS ORDERED: ATORVASTATIN 40 MG TABLET PO SCH (22:00)
--- NOTE | 2018-01-15 22:00 | NUR ---
TELERN BS 133 REFUSED INSULIN COVERAGE AND REFUSED LANTUS FOR NOW. SNACKS PROVIDED.
[2018-01-16] VITALS: BP 152/85
[2018-01-16] MEDS: HYDROMORPHONE INJ 2 MG/ML DISP.SYRIN IV PRN ×3 (01:03→12:33)
--- NOTE | 2018-01-16 01:18 | NUR ---
TELERN VERBALIZES LOWER EXTREMITIES PAIN LEVEL 9/10, DILAUDED 1 MG IVP ADMIISTERED. BEDREST INSTRUCTED.
[2018-01-16 04:30] VITALS: BP 150/71
--- NOTE | 2018-01-16 05:00 | NUR ---
TELERN VERBALIZES LOWER EXT PAIN AND BACKPAIN, DIL 1MG IVP ADMINISTERED. BEDREST INSTRUCTED.
--- NOTE | 2018-01-16 06:44 | NUR ---
TELERN REFUSED TO BE WEIGHED.
--- NOTE | 2018-01-16 07:00 | NUR ---
TELERN BLOOD SUGAR WAS 126.
--- NOTE | 2018-01-16 07:50 | NUR ---
RN OPENING NOTES RECEIVED PT. PT IS STABLE AND RESTING IN BED. A/OX4. NO S/S OF RESP DISTRESS OR SOB. NOO C/O PAIN AT THIS TIME. TELE MONITOR READING SR. LAST DIALYSIS PERRFORMED ON 01/15/18 WITH 2.5L OUTPUT. PER PENSION EXAMINER REPORT PT HAS REFUSED INSULIN SLIDING SCALE, WILL CONTINUE TO MONITOR BS. IV ACCESS LOCATED ON RIGHT HAND 20 G SL. WOUND NOTED ON RCW WHERE PREVIOUS PERMA CATH WAS PLACED. SAFETY MEASURES IN PLACE, CALL LIGHT IN REACH. WILL CONTINUE TO MONITOR.
[2018-01-16 08:00] VITALS: BP 171/91
[2018-01-16] MEDS: BLOOD SUGAR DIAGNOSTIC 1 EACH STRIP IN SCH ×2 (08:17→12:00)
[2018-01-16] MEDS: CALCIUM ACETATE 667 MG TABLET PO SCH ×2 (08:18→12:34)
[2018-01-16] MEDS: GABAPENTIN 300 MG CAPSULE PO SCH ×2 (08:18→12:33)
[2018-01-16] MEDS ORDERED: CHOLECALCIFEROL 1,000 UNIT TABLET (VIT D3) PO SCH (09:00)
[2018-01-16] MEDS ORDERED: APIXABAN 2.5 MG TABLET PO SCH (09:00)
[2018-01-16] MEDS ORDERED: ASPIRIN EC 81 MG TABLET.DR PO SCH (09:00)
[2018-01-16] MEDS ORDERED: ISOSORBIDE MONONITRATE (30MG) 30 MG TAB.SR.24H PO SCH (10:30)
[2018-01-16 11:15] VITALS: BP 168/98
[2018-01-16] MEDS: CARVEDILOL 12.5 MG TABLET PO SCH (11:15)
--- NOTE | 2018-01-16 18:41 | NUR ---
DISCHARGE NOTE PT LEFT HOSPITAL AMA. TEACHING PERFORMED REGARDING RISKS OF LEAVING AMA, PT CONTINUES TO INSIST ON AMA. IV ACCESS REMOVED. ID BAND REMOVED. PT REFUSED EXIT CARE. PT REFUSED PICTURES OF WOUNDS. FOLLOW UP FOR DR. PERDOMO'S OFFICE GIVEN TO PT.
== END 2018-01-16 14:00 | disposition left against medical advice (07) | DRG 291 ==
LOC: ER 12:44 → TELE 14:09
PROVIDERS: ADMIT Internal Medicine Nephrology; ATTEND Internal Medicine Nephrology
PROC: 5A1D70Z Performance of Urinary Filtration, Intermittent, Less than 6 Hours Per Day (ICD-10-PCS; principal; 2018-01-15)
PROC: 5A1D70Z Performance of Urinary Filtration, Intermittent, Less than 6 Hours Per Day (ICD-10-PCS; 2018-01-16)
DX: I13.2 Hypertensive heart and chronic kidney disease with heart failure and with stage 5 chronic kidney disease, or end stage renal disease (principal); N18.6 End stage renal disease; I50.23 Acute on chronic systolic (congestive) heart failure; S21.101A Unspecified open wound of right front wall of thorax without penetration into thoracic cavity, initial encounter; Z99.2 Dependence on renal dialysis; I25.10 Atherosclerotic heart disease of native coronary artery without angina pectoris; E11.22 Type 2 diabetes mellitus with diabetic chronic kidney disease; F17.200 Nicotine dependence, unspecified, uncomplicated; I48.0 Paroxysmal atrial fibrillation; D64.9 Anemia, unspecified; I42.9 Cardiomyopathy, unspecified; E11.40 Type 2 diabetes mellitus with diabetic neuropathy, unspecified; Z79.01 Long term (current) use of anticoagulants; X58.XXXA Exposure to other specified factors, initial encounter; Y93.9 Activity, unspecified; Y92.009 Unspecified place in unspecified non-institutional (private) residence as the place of occurrence of the external cause; E83.9 Disorder of mineral metabolism, unspecified; H54.7 Unspecified visual loss
CPT/HCPCS: 36415; 71045-TC; 80048-TC; 80076-TC; 82962-TC; 84484-TC; 85025-TC; 85730-TC; 87081-TC; 90935-TC; A4606; A6402; A6403; J0885; J1170; J1815; J2270; Z7610

== ENCOUNTER 2018-11-17 13:31 | Inpatient (IN) | payer MEDICARE, OTHER ==
[~2018-11-17] VITALS: Ht 180.3 cm; Wt 109.4 kg
[~2018-11-17 13:31] MED LIST changes: +CHOL100044 PO; +CLON0.3P TD; -HYDR-4077 PO; -ISOS5TAB3 PO
[2018-11-17] MEDS ORDERED: MORPHINE SULFATE INJ 2 MG/ML DISP.SYRIN IV ONE (14:30)
[2018-11-17] MEDS ORDERED: ONDANSETRON HCL/PF 4 MG/2 ML VIAL IVP ONE (14:30)
--- NOTE | 2018-11-17 14:30 | NUR ---
c/o cellulitis to lower extremities and missed dialysis, last HD was 4 days ago (thursday). DENIES CP, SOB, DIZZINESS, N/V/D @ THIS TIME. WILL CONT TO MONITOR.
--- NOTE | 2018-11-17 14:56 | NUR ---
AWAITING MIDLINE RN
[2018-11-17] MEDS ORDERED: MORPHINE SULFATE INJ 4 MG/ML DISP.SYRIN ONE (15:45)
[2018-11-17 15:46] LABS: BASOPHILS # (AUTO) 0.1 /CMM (0.0-0.2); BASOPHILS % (AUTO) 1.4 % (0.0-2.0); EOSINOPHILS % (AUTO) 5.1 % (0.0-6.0); HEMATOCRIT 26 % (39-51); HEMOGLOBIN 8.7 g/dL (13.5-17.5); LYMPHOCYTES # (AUTO) 0.7 /CMM (0.8-4.8); LYMPHOCYTES % (AUTO) 13.4 % (20.0-44.0); MEAN CORPUSCULAR HGB CONC 33 g/dl (31.0-36.0); MEAN CORPUSCULAR VOLUME 97 fL (80-96); MONOCYTES # (AUTO) 0.6 /CMM (0.1-1.30); MONOCYTES % (AUTO) 11.3 % (2.0-12.0); NEUTROPHILS # (AUTO) 3.4 /CMM (1.8-8.9); NEUTROPHILS % (AUTO) 68.8 % (43.0-81.0); PLATELET COUNT (AUTO) 161 /CMM (150-450); RED BLOOD CELL COUNT(AUTO) 2.71 MIL/uL (4.5-6.0); WHITE BLOOD COUNT (AUTO) 4.9 K/uL (4.3-11.0)
--- NOTE | 2018-11-17 15:50 | NUR ---
MEDICATED FOR PAIN PER PA'S ORDER, PT BRANDI WELL.
[2018-11-17 17:58] LABS: POTASSIUM 5.2 mmol/L (3.5-5.1)
[2018-11-17 18:01] LABS: BILIRUBIN,DIRECT 0.6 mg/dL (0.0-0.2); BILIRUBIN,TOTAL 1.2 mg/dL (0.2-1.0); CREATININE 6.6 mg/dL (0.6-1.3); TOTAL PROTEIN, SERUM 7.8 g/dL (6.4-8.2)
[2018-11-17] MEDS ORDERED: HYDROMORPHONE 1 MG/1 ML DISP.SYRIN ONE (18:36)
--- NOTE | 2018-11-17 18:43 | NUR ---
MEDICATED FOR PAIN, PT BRANDI WELL.
--- NOTE | 2018-11-17 18:43 | NUR ---
PGD FOR DR RAYGOZA PIN DRAFTER OPERATOR DR IS DR VU; WILL CALL BACK
--- NOTE | 2018-11-17 18:49 | NUR ---
CALLED NURSE SUP FOR TELE BED
[2018-11-17] MEDS ORDERED: FURO-144 PO (18:57)
[2018-11-17] MEDS ORDERED: HYDROMORPHONE INJ 0.5 MG/0.5 ML SYRINGE IV ONE (19:00)
--- NOTE | 2018-11-17 19:51 | NUR ---
BED 116-1
--- NOTE | 2018-11-17 20:26 | NUR ---
REPORT GIVEN TO YANNI CASTRO FOR CONT OF CARE.
[2018-11-17 20:45] VITALS: BP 138/82
[2018-11-17 21:00] VITALS: BP 138/82
[2018-11-17] MEDS ORDERED: ACETAMINOPHEN 325 MG TABLET PO PRN (21:00)
[2018-11-17] MEDS ORDERED: INSULIN REGULAR, HUMAN 100 UNIT/ML 3 ML VIAL SQ PRN (21:00)
[2018-11-17] MEDS ORDERED: DEXTROSE 50%-WATER 50 ML DISP.SYRIN IV PRN (21:00)
[2018-11-17] MEDS: APIXABAN 2.5 MG TABLET PO SCH (22:04)
[2018-11-17] MEDS: ATORVASTATIN 40 MG TABLET PO SCH (22:04)
[2018-11-17] MEDS: MORPHINE SULFATE INJ 2 MG/ML DISP.SYRIN IM PRN (22:04)
[2018-11-17] MEDS: BLOOD SUGAR DIAGNOSTIC 1 EACH STRIP IN SCH (22:08)
[2018-11-18] VITALS (11 sets, daily range): BP systolic 117–156; BP diastolic 71–90
[2018-11-18] MEDS: MORPHINE SULFATE INJ 2 MG/ML DISP.SYRIN IM PRN ×3 (06:03→15:26)
[2018-11-18] MEDS: BLOOD SUGAR DIAGNOSTIC 1 EACH STRIP IN SCH ×4 (08:14→21:01)
[2018-11-18] MEDS: ASPIRIN EC 81 MG TABLET.DR PO SCH (08:56)
[2018-11-18] MEDS: FUROSEMIDE 40 MG TABLET PO SCH ×2 (08:57→17:32)
[2018-11-18] MEDS: DULOXETINE HCL 30 MG CAPSULE.DR PO SCH (08:57)
[2018-11-18] MEDS: CHOLECALCIFEROL 1,000 UNIT TABLET (VIT D3) PO SCH (08:57)
[2018-11-18] MEDS: CARVEDILOL 12.5 MG TABLET PO SCH ×2 (09:00→20:44)
[2018-11-18] MEDS: CALCIUM ACETATE 667 MG TABLET PO SCH ×3 (09:12→17:29)
[2018-11-18] MEDS: APIXABAN 2.5 MG TABLET PO SCH ×2 (09:14→17:32)
--- NOTE | 2018-11-18 09:26 | NUR ---
PIG FURNACE OPERATOR OPENING NOTE RECEIVED PATIENT IN BED AND AWAKE. A/O X4, NO SOB OR ACUTE DISTRESS NOTED. RAC #22 SL INTACT AND PATENT. L ARM HD SHUNT PRESENTS W/ NO S/S OF INFECTION. HD ORDERED FOR TODAY. PATEINT NEEDS MET, SAFETY MEASURES IN PLACE. CALL LIGHT WITHIN REACH. WILL CONTINUE TO MONITOR.
--- NOTE | 2018-11-18 09:28 | NUR ---
VP OF CUSTOMER EXPERIENCE STRATEGY NOTE BLOOD PRESSURE MEDICATION HELD. DIALYSIS TREATMENT STARTED. BP 155/83. WILL RECHECK BP POST HD AND ADMINISTER MEDICATION IF INDICATED.
[2018-11-18 11:12] LABS: BASOPHILS % (AUTO) 0.9 % (0.0-2.0); EOSINOPHILS % (AUTO) 8.7 % (0.0-6.0); HEMATOCRIT 23 % (39-51); HEMOGLOBIN 7.9 g/dL (13.5-17.5); LYMPHOCYTES # (AUTO) 0.5 /CMM (0.8-4.8); MEAN CORPUSCULAR HGB CONC 34 g/dl (31.0-36.0); MEAN CORPUSCULAR VOLUME 96 fL (80-96); MONOCYTES # (AUTO) 0.3 /CMM (0.1-1.30); MONOCYTES % (AUTO) 7.9 % (2.0-12.0); NEUTROPHILS # (AUTO) 2.6 /CMM (1.8-8.9); NEUTROPHILS % (AUTO) 68.5 % (43.0-81.0); PLATELET COUNT (AUTO) 133 /CMM (150-450); RED BLOOD CELL COUNT(AUTO) 2.43 MIL/uL (4.5-6.0); WHITE BLOOD COUNT (AUTO) 3.8 K/uL (4.3-11.0)
[2018-11-18 11:25] LABS: CALCIUM, SERUM 8.2 mg/dL (8.5-10.1); CREATININE 4.9 mg/dL (0.6-1.3); MAGNESIUM 2.2 mg/dL (1.8-2.4); PHOSPHORUS 4.3 mg/dL (2.5-4.9); POTASSIUM 3.6 mmol/L (3.5-5.1)
[2018-11-18] MEDS ORDERED: FEE PK DOSING 1 MIN EA MC ONE (11:29)
[2018-11-18 11:38] LABS: EOSINOPHILS % (MANUAL) 6 % (0-4); LYMPHOCYTES % (MANUAL) 17 % (16-48); MONOCYTES % (MANUAL) 7 % (0-11.0); NEUTROPHILS % (MANUAL) 70 (42-76)
[2018-11-18] MEDS: HYDROCODONE/APAP 5/325MG 1 EACH TABLET PO PRN ×2 (12:57→20:44)
[2018-11-18] MEDS: EPOETIN ALFA (10,000 UNIT) 10,000 UNIT/ML VIAL IV ONE ×2 (13:42→13:53)
--- NOTE | 2018-11-18 13:42 | NUR ---
OIL WELL CABLE TOOL OPERATOR NOTE EPOGEN ARRIVED LATE FROM PHARMACY. ADMINISTERING AT 1345.
--- NOTE | 2018-11-18 14:15 | NUR ---
rn support services consult requested for placement but evaluation is for case management for possible SNF placement. GALO informed Coding Tech Purvi of aforementioned information.
[2018-11-18] MEDS: NEOMY SULF/BACITRAC ZN/POLY 15 GM TUBE TP SCH (17:39)
--- NOTE | 2018-11-18 19:00 | NUR ---
PATIENT REFUSED 1730 ACCUCHECK.
--- NOTE | 2018-11-18 19:02 | NUR ---
JAPANESE TUTOR NOTE HD COMPLETED TODAY. 3 LITERS FLUID REMOVED. NO HD COMPLICATIONS NOTED.
--- NOTE | 2018-11-18 19:05 | NUR ---
AUTOMOTIVE SPECIALTY TECHNICIAN CLOSING NOTE PATIENT IN BED AND AWAKE. A/O X4, NO SOB OR ACUTE DISTRESS NOTED. RAC #22 SL INTACT AND PATENT. L ARM HD SHUNT PRESENTS W/ NO S/S OF INFECTION. HD COMPLETED TODAY. PATEINT NEEDS MET, SAFETY MEASURES IN PLACE. CALL LIGHT WITHIN REACH. CARE ENDORSED TO MASSAGE OPERATOR RN.
--- NOTE | 2018-11-18 19:22 | NUR ---
ANALOG DEVICE DESIGNER NOTES RECEIVED PT ON BED. A/O X 4, ON RA NO RESPIRATORY DISTRESS NOTED. ON TELE MONITOR A FIB 80S. HD ACCESS ON LEFT HD SHUNT AND RCW HD CATH NO BLEEDING NOTED. IV ACCESS ON RAC G 22 SALINE LOCK PATENT AND INTACT. HEAD OF BED ELEVATED. SIDE RAILS UP. CALL LIGHT WITHIN REACH. BED ALARM ON. WILL CONTINUE TO MONITOR PT CLOSELY.
[2018-11-18] MEDS: ATORVASTATIN 40 MG TABLET PO SCH (20:46)
[2018-11-18] MEDS: MORPHINE SULFATE INJ 2 MG/ML DISP.SYRIN IVP PRN (21:28)
[2018-11-19] VITALS (7 sets, daily range): BP systolic 130–148; BP diastolic 63–86
--- NOTE | 2018-11-19 00:18 | NUR ---
SURGICAL ASST NOTES PT REFUSE ACCU CHECK. EXPLAINED RISK AND BENEFITS. PT STILL REFUSED.
[2018-11-19] MEDS: HYDROCODONE/APAP 5/325MG 1 EACH TABLET PO PRN ×2 (03:18→13:34)
[2018-11-19] MEDS: MORPHINE SULFATE INJ 2 MG/ML DISP.SYRIN IVP PRN ×4 (03:54→22:10)
--- NOTE | 2018-11-19 06:43 | NUR ---
ADMINISTRATION SPECIALIST NOTES NO ACUTE CHANGES NOTED DURING THE SHIFT. PROVIDED COMFORT AND SAFETY. WILL ENDORSE TO THE AM NURSE FOR CONTINUITY OF CARE.
--- NOTE | 2018-11-19 07:01 | NUR ---
MICA PLATE LAYER HAND NOTES UNABLE TO COLLECT OB STOOL. PT NO BOWEL MOVEMENT THROUGHOUT THE NIGHT
[2018-11-19] MEDS: BLOOD SUGAR DIAGNOSTIC 1 EACH STRIP IN SCH ×4 (07:30→22:00)
--- NOTE | 2018-11-19 07:51 | NUR ---
Attempt to check patient blood glucose. Patient refused. Educated patient regarding risks of low blood sugar and high blood sugar. Stool occult blood collection yates placed in toilet. Education to patient about collection of stool sample. LINK CUTTER notified of collection. Tanner Meza RN
[2018-11-19] MEDS: CALCIUM ACETATE 667 MG TABLET PO SCH ×3 (08:00→18:00)
--- NOTE | 2018-11-19 08:07 | NUR ---
Patient says change of morphine order to qevery 4 hours. Order shows morphine q 6 hours. Last dose of morphine at 4 am. Next dose pending further time passage. Tanner Meza RN
--- NOTE | 2018-11-19 08:15 | NUR ---
Patient given education on refusal of medication calcium acetate and it may worsen his kidney condition. Tanner Meza RN
--- NOTE | 2018-11-19 08:22 | NUR ---
WOUND CARE CONSULT WOUND CARE RECEIVED CONSULT FOR BILATERAL LEGS AND ABDOMEN. WOUND CARE WILL DEFER CONSULT AND TREATMENT PLANS TO PLASTIC SURGICAL TEAM WHO ARE CURRENTLY FOLLOWING THIS PATIENT. PATIENT WITH SANDRA AT 21, WILL SEE PRN.
[2018-11-19] MEDS: CHOLECALCIFEROL 1,000 UNIT TABLET (VIT D3) PO SCH (09:00)
[2018-11-19] MEDS: DULOXETINE HCL 30 MG CAPSULE.DR PO SCH (09:00)
[2018-11-19] MEDS: CARVEDILOL 12.5 MG TABLET PO SCH ×2 (09:00→21:13)
[2018-11-19] MEDS: APIXABAN 2.5 MG TABLET PO SCH ×2 (09:00→16:24)
[2018-11-19] MEDS: ASPIRIN EC 81 MG TABLET.DR PO SCH (09:00)
[2018-11-19] MEDS: NEOMY SULF/BACITRAC ZN/POLY 15 GM TUBE TP SCH (09:00)
[2018-11-19] MEDS: FUROSEMIDE 40 MG TABLET PO SCH ×2 (09:00→16:24)
--- NOTE | 2018-11-19 10:29 | NUR ---
Patient up for evaluation with physical therapist at this time. Refused morning medication. Tanner Meza RN
--- NOTE | 2018-11-19 16:25 | NUR ---
occupational therapy supervisor will arrive at 7 pm this evening. Tanner Meza RN
--- NOTE | 2018-11-19 19:04 | NUR ---
Patient on hemodialysis at this time. Stable left upper chest access. Vital signs are stable. Tanner Meza RN
--- NOTE | 2018-11-19 19:40 | NUR ---
RN NOTES RECEIVED PT ON BED. ALERT ORIENTED X 4, ON ROOM AIR NO RESPIRATORY DISTRESS NOTED. HD ACCESS ON LEFT HD SHUNT AND RCW HD CATH NO BLEEDING NOTED. IV ACCESS ON RAC G 22 SALINE LOCK PATENT AND INTACT.ONGOING DIALYSIS DURING EXCHANGE OF SHIFT ROUNDS, SAFETY MEASURES IN PLACED, HEAD OF BED ELEVATED. SIDE RAILS UP. CALL LIGHT WITHIN REACH. CALL LIGHT WITHIN EASY REACH. RESTING COMFORTABLY, WILL MONITOR ACCORDINGLY.
--- NOTE | 2018-11-19 20:30 | NUR ---
RN NOTES HEMODIALYSIS DONE AT THIS TIME. PATIENT RESTING COMFORTABLY.
[2018-11-19 20:41] LABS: IRON, SERUM 51 ug/dl (50-175); TOTAL IRON BINDING CAPACITY 212 ug/dl (250-450)
[2018-11-19 20:55] LABS: FERRITIN 206 ng/mL (8-388)
[2018-11-19] MEDS: ATORVASTATIN 40 MG TABLET PO SCH (21:13)
--- NOTE | 2018-11-19 22:10 | NUR ---
RN NOTES PATIENT REFUSED BS ACCUCHECK SCHEDULED PER MD ORDER, COMPLAINTS OF BLE PAIN 02/26, MORPHINE 2MG IV GIVEN PRN PER MD ORDER, WILL MONITOR.
[2018-11-20] VITALS: BP 133/63
--- NOTE | 2018-11-20 00:57 | NUR ---
RN NOTES ASLEEP AT THIS TIME, KEPT WARM AND COMFORTABLE.
[2018-11-20 04:27] VITALS: BP 133/76
[2018-11-20] MEDS: MORPHINE SULFATE INJ 2 MG/ML DISP.SYRIN IVP PRN ×5 (05:38→20:54)
--- NOTE | 2018-11-20 05:38 | NUR ---
RN NOTES PATIENT COMPLAINTS OF BILATERAL LOWER EXTREMITIES PAIN 8/10, MORPHINE 2MG IV GIVEN PRN PER MD ORDER, WILL MONITOR ACCORDINGLY.
--- NOTE | 2018-11-20 06:32 | NUR ---
RN NOTES ALL NEEDS ATTENDED AND MET, KEPT RESTED, NO SIGNS OF ACUTE RESPIRATORY DISTRESS NOTED, SAFETY MEASURES IN PLACED, CALL LIGHT WITHIN EASY REACH, NO COMPLAINTS OF PAIN AT THIS TIME, WILL ENDORSE TO AM NURSE FOR CONTINUITY OF CARE.
[2018-11-20] MEDS: BLOOD SUGAR DIAGNOSTIC 1 EACH STRIP IN SCH ×2 (07:30→12:00)
[2018-11-20] MEDS: CALCIUM ACETATE 667 MG TABLET PO SCH ×3 (07:42→18:17)
[2018-11-20 08:00] VITALS: BP 112/56
[2018-11-20] MEDS: CARVEDILOL 12.5 MG TABLET PO SCH ×2 (08:39→20:57)
[2018-11-20] MEDS: ASPIRIN EC 81 MG TABLET.DR PO SCH (08:39)
[2018-11-20] MEDS: CHOLECALCIFEROL 1,000 UNIT TABLET (VIT D3) PO SCH (08:40)
[2018-11-20] MEDS: FUROSEMIDE 40 MG TABLET PO SCH ×2 (08:40→18:17)
[2018-11-20] MEDS: DULOXETINE HCL 30 MG CAPSULE.DR PO SCH (08:40)
[2018-11-20] MEDS: NEOMY SULF/BACITRAC ZN/POLY 15 GM TUBE TP SCH (08:41)
[2018-11-20] MEDS: APIXABAN 2.5 MG TABLET PO SCH ×2 (08:41→18:20)
[2018-11-20 10:00] LABS: BASOPHILS # (AUTO) 0.1 /CMM (0.0-0.2); BASOPHILS % (AUTO) 1.4 % (0.0-2.0); EOSINOPHILS % (AUTO) 5.3 % (0.0-6.0); HEMATOCRIT 24 % (39-51); HEMOGLOBIN 8.2 g/dL (13.5-17.5); LYMPHOCYTES # (AUTO) 0.6 /CMM (0.8-4.8); LYMPHOCYTES % (AUTO) 15.8 % (20.0-44.0); MEAN CORPUSCULAR HGB CONC 35 g/dl (31.0-36.0); MEAN CORPUSCULAR VOLUME 96 fL (80-96); MONOCYTES # (AUTO) 0.5 /CMM (0.1-1.30); MONOCYTES % (AUTO) 13.2 % (2.0-12.0); NEUTROPHILS # (AUTO) 2.4 /CMM (1.8-8.9); NEUTROPHILS % (AUTO) 64.3 % (43.0-81.0); PLATELET COUNT (AUTO) 102 /CMM (150-450); RED BLOOD CELL COUNT(AUTO) 2.49 MIL/uL (4.5-6.0); WHITE BLOOD COUNT (AUTO) 3.7 K/uL (4.3-11.0)
[2018-11-20 10:12] LABS: CALCIUM, SERUM 8.3 mg/dL (8.5-10.1); CREATININE 5.7 mg/dL (0.6-1.3); MAGNESIUM 2.3 mg/dL (1.8-2.4); PHOSPHORUS 6.3 mg/dL (2.5-4.9); POTASSIUM 4.5 mmol/L (3.5-5.1)
[2018-11-20 16:00] VITALS: BP 135/86
--- NOTE | 2018-11-20 19:10 | NUR ---
RN MS OPENING NOTES RECEIVED PATIENT IN ROOM SITTING IN BED, AWAKE ALERT AND ORIENTED X4, RESPIRATIONS EVEN AND UNLABORED WITH EQUAL RISE AND FALL OF CHEST, DENIES ANY PAIN OR DISCOMFORT AT THIS TIME, ORIENTED TO STAFF AND CALL LIGHT AND KEPT WITHIN REACH, SAFETY PRECAUTIONS IN PLACE, LOW BED AND LOCKED, IV SITE TO RIGHT AC #22 INTACT AND PATENT ,NO REDNESS, NO INFILTRATION PRESENT, RIGHT CHEST WALL DIAYLYSIS CATHETER IN PLACE WITH DRESSING CLEAN. DRY AND INTACT, LEFT AC SHUNT BRUIT PRESENT, PER PATIENT NOT IN USE YET, LINENS AND NEW SOCKS PROVIDED, MADE AWARE FOR STOOL COLLECTION , HAT IN TOILET PATIENT AWARE. ALL NEEDS ATTENDED AT THIS TIME, WILL CONTINUE TO MONITOR AND ATTEND TO NEEDS.
--- NOTE | 2018-11-20 19:13 | NUR ---
Handoff to YANNI Schofield. Tanner Meza RN
[2018-11-20 20:00] VITALS: BP 147/91
--- NOTE | 2018-11-20 20:45 | NUR ---
RN MS NOTES PATIENT REFUSED HEMODIALYSIS X 3 DESPITE EDUCATION PER PATIENT WANTS HD IN AM 11/21/18 AFTER BREAKFAST. STATES "DOES NOT WANT HD THIS LATE ON A THURSDAY".
--- NOTE | 2018-11-20 20:54 | NUR ---
RN MS NOTES PATIENT COMPLAINED OF PAIN TO BOTH LOWER EXTREMITIES STATES ACHY, THROBBING /,REQUESTING FOR MORPHINE VS ASSESSED WNL 147/91,78,18,98%RA MORPHINE PRN GIVEN ORDERED, WILL CONTINUE TO MONITOR.
[2018-11-20] MEDS: ATORVASTATIN 40 MG TABLET PO SCH (21:00)
[2018-11-21] MEDS: MORPHINE SULFATE INJ 2 MG/ML DISP.SYRIN IVP PRN ×5 (01:15→20:26)
--- NOTE | 2018-11-21 01:15 | NUR ---
RN MS NOTES PATIENT COMPLAINT OF PAIN TO BOTH LOWER EXTREMITIES 02/26 REQUESTING FOR MORPHINE VS WNL. PRN MORPHINE GIVEN ORDERED WILL CONTINUE TO MONITOR.
[2018-11-21 04:00] VITALS: BP 135/74
--- NOTE | 2018-11-21 05:24 | NUR ---
RN MS NOTES PATIENT COMPLAINT OF PAIN 02/26 REQUESTING FOR PAIN MEDICATION MORPHINE, VS WNL. MORPHINE PRN GIVEN. WILL CONTINUE TO MONITOR.
--- NOTE | 2018-11-21 06:27 | NUR ---
RN MS CLOSING NOTES PATIENT IN ROOM IN BED AWAKE ALERT AND ORIENTED X4, RESPIRATIONS EVEN AND UNLABORED WITH EQUAL RISE AND FALL OF CHEST, DENIES ANY PAIN OR DISCOMFORT AT THIS TIME, CALL LIGHT KEPT WITHIN REACH, SAFETY PRECAUTIONS IN PLACE, LOW BED AND LOCKED, IV SITE TO RIGHT AC #22 INTACT AND PATENT NOTED WITH SLIGHT LEAKING WHEN FLUSHED MADE PATIENT AWARE OF NEW IV SITE NEEDS TO BE REPLACED, REFUSES AT THIS TIME, RIGHT CHEST WALL DIALYSIS CATHETER IN PLACE WITH DRESSING CLEAN. DRY AND INTACT, LEFT AC SHUNT BRUIT PRESENT, MADE AWARE FOR STOOL COLLECTION NOT BM THIS SHIT , HAT IN TOILET PATIENT AWARE. ALL NEEDS ATTENDED AT THIS TIME, WILL CONTINUE TO MONITOR AND ATTEND TO NEEDS AND ENDORSE TO NEXT SHIFT.
[2018-11-21 08:00] VITALS: BP 130/82
[2018-11-21] MEDS: CALCIUM ACETATE 667 MG TABLET PO SCH ×3 (08:56→16:52)
[2018-11-21] MEDS: CHOLECALCIFEROL 1,000 UNIT TABLET (VIT D3) PO SCH (08:56)
[2018-11-21] MEDS: FUROSEMIDE 40 MG TABLET PO SCH ×2 (08:56→16:52)
[2018-11-21] MEDS: DULOXETINE HCL 30 MG CAPSULE.DR PO SCH (08:57)
[2018-11-21] MEDS: CARVEDILOL 12.5 MG TABLET PO SCH ×2 (08:57→21:36)
[2018-11-21] MEDS: NEOMY SULF/BACITRAC ZN/POLY 15 GM TUBE TP SCH (08:57)
[2018-11-21] MEDS: ASPIRIN EC 81 MG TABLET.DR PO SCH (08:57)
[2018-11-21] MEDS: APIXABAN 2.5 MG TABLET PO SCH ×2 (09:00→16:51)
[2018-11-21 11:45] LABS: BASOPHILS % (AUTO) 0.1 % (0.0-2.0); EOSINOPHILS % (AUTO) 4.8 % (0.0-6.0); HEMATOCRIT 23 % (39-51); HEMOGLOBIN 7.9 g/dL (13.5-17.5); LYMPHOCYTES # (AUTO) 0.6 /CMM (0.8-4.8); LYMPHOCYTES % (AUTO) 17.3 % (20.0-44.0); MEAN CORPUSCULAR HGB CONC 34 g/dl (31.0-36.0); MEAN CORPUSCULAR VOLUME 96 fL (80-96); MONOCYTES # (AUTO) 0.2 /CMM (0.1-1.30); MONOCYTES % (AUTO) 6.4 % (2.0-12.0); NEUTROPHILS # (AUTO) 2.4 /CMM (1.8-8.9); NEUTROPHILS % (AUTO) 71.4 % (43.0-81.0); PLATELET COUNT (AUTO) 99 /CMM (150-450); RED BLOOD CELL COUNT(AUTO) 2.45 MIL/uL (4.5-6.0); WHITE BLOOD COUNT (AUTO) 3.4 K/uL (4.3-11.0)
[2018-11-21 11:54] LABS: CALCIUM, SERUM 8.3 mg/dL (8.5-10.1); MAGNESIUM 2.3 mg/dL (1.8-2.4); PHOSPHORUS 5.3 mg/dL (2.5-4.9)
[2018-11-21 13:07] LABS: BAND % (MANUAL) 2 % (0.0-5.0); EOSINOPHILS % (MANUAL) 5 % (0-4); LYMPHOCYTES % (MANUAL) 15 % (16-48); MONOCYTES % (MANUAL) 8 % (0-11.0); NEUTROPHILS % (MANUAL) 70 (42-76)
[2018-11-21 16:00] VITALS: BP_SYST 133; BP_SYST 160; BP_DIAS 69; BP_DIAS 78
[2018-11-21 20:00] VITALS: BP 145/81
--- NOTE | 2018-11-21 20:00 | NUR ---
MS RN NOTE PT IN BED AWAKE. A/O X 4, NO SOB, NO DISTRESS OR DISCOMFORT NOTED. RT WRIST SL INTACT AND PATENT. RCW HD CATH INTACT ALSO LAC SHUNT SITE INTACT. SIDE RAILS UP X 2 ALL NEEDS ATTENDED. VSS. CONTINUE TO MONITOR HIM.
[2018-11-21 20:09] VITALS: BP 145/81
[2018-11-21] MEDS: ATORVASTATIN 40 MG TABLET PO SCH (21:36)
--- NOTE | 2018-11-22 | NUR ---
MS RN NOTE PT REFUSED SKIN PICTURES TAKEN AND ALSO SKIN ASSESSMENT. STATES "DON'T WORRY ABOUT IT". ASKED HIM 3 DIFFERENT TIMES
[2018-11-22] MEDS: MORPHINE SULFATE INJ 2 MG/ML DISP.SYRIN IVP PRN ×6 (01:19→22:31)
[2018-11-22 04:00] VITALS: BP 141/69
[2018-11-22 04:34] VITALS: BP 141/69
--- NOTE | 2018-11-22 06:54 | NUR ---
MS RN NOTE PT IN BED AWAKE. NO DISTRESS OR DISCOMFORT NOTED. ALL NEEDS ATTENDED. VSS. WILL ENDORSE TO DAY SHIFT NURSE FOR CONTINUE TO CARE.
--- NOTE | 2018-11-22 07:30 | NUR ---
RN NOTES RECEIVED PATIENT IN BED, AWAKE, A/0 X4, ABLE TO MAKE NEEDS KNOWN. . NO SIGNS OF DISTRESS NOTED AT THIS TIME. ON ROOM AIR, RESPIRATIONS EVEN AND UNLABORED. NO SOB NOTED. NO FACIAL GRIMACING OR DISTRESS PRESENT, APPEARS COMFORTABLE AT THIS TIME. IV ACCESS ON THE RIGHT UPPER ARM :MIDLINE; I PLACE AND INTACT. WITH ONGOING IVF OF 1/2 NS AT 75CC/HR. SAFETY PRECAUTIONS OBSERVED AD MAINTAINED IN PLACE, BED IN LOW AND LOCKED POSITION,CALL LIGHT PLACED WITHIN REACH, EDDI IMPLEMENT REVERSE ISOLATION AND WILL CONTINUE TO MONITOR AND ADDRESS NEEDS Addendum: 11/22/18 at 8224 by JAYDA KEENE RN ERROR IN CHARTING
--- NOTE | 2018-11-22 07:30 | NUR ---
RN NOTES RECEIVED PATIENT IN BED, AWAKE, A/O X4, ABLE TO MAKE NEEDS KNOWN. NO SIGNS OF DISTRESS NOTED AT THIS TIME. ON ROOM AIR, RESPIRATIONS EVEN AND UNLABORED. NO SOB NOTED. NO COMPLAINTS OF PAIN OF ANY KIND. ON DIALYSIS TREATMENT AT THIS TIME. IV ACCESS ON THE RIGHT WRIST G 24: IN PLACE AND INTACT. SAFETY PRECAUTIONS OBSERVED AD MAINTAINED IN PLACE, BED IN LOW AND LOCKED POSITION,ENCOURAGE TO CALL FOR HELP/ ASSISTANCE, CALL LIGHT PLACED WITHIN REACH, WILL CONTINUE TO MONITOR AND ADDRESS NEEDS
[2018-11-22 08:00] VITALS: BP 145/93
[2018-11-22] MEDS: DULOXETINE HCL 30 MG CAPSULE.DR PO SCH (09:19)
[2018-11-22] MEDS: CALCIUM ACETATE 667 MG TABLET PO SCH ×4 (09:19→17:37)
[2018-11-22] MEDS: CHOLECALCIFEROL 1,000 UNIT TABLET (VIT D3) PO SCH (09:19)
[2018-11-22] MEDS: APIXABAN 2.5 MG TABLET PO SCH ×2 (09:19→16:45)
[2018-11-22] MEDS: ASPIRIN EC 81 MG TABLET.DR PO SCH (09:20)
[2018-11-22] MEDS: FUROSEMIDE 40 MG TABLET PO SCH ×2 (09:20→16:43)
[2018-11-22] MEDS: CARVEDILOL 12.5 MG TABLET PO SCH ×2 (09:20→22:30)
[2018-11-22] MEDS: NEOMY SULF/BACITRAC ZN/POLY 15 GM TUBE TP SCH (09:22)
--- NOTE | 2018-11-22 13:00 | NUR ---
RN NOTES WAS SUPPOSED TO GIVE ANOTHER MORPHINE BUT TOO EARLY TO GIVE, MEDICATION ALREADY PULLED OUT. WASTED INSTEAD
[2018-11-22 16:00] VITALS: BP 150/90
--- NOTE | 2018-11-22 19:39 | NUR ---
RN NOTES ENDORSED PATIENT FOR CONTINUITY OF CARE. NO ACUTE CHANGES WITHIN THE SHIFT. NOT ON ANY FORM OF DISTRESS. ALL NURSING NEEDS ATTENDED AND MET. SAFETY MEASURES IN PLACE AT ALL TIME. CALL LIGHT PLACED WITHIN REACH AT ALL TIMES
[2018-11-22 20:00] VITALS: BP 155/70
--- NOTE | 2018-11-22 20:00 | NUR ---
MS RN NOTE PT IN BED ASLEEP, AROUSABLE. A/O X 4, NO SOB, NO DISTRESS OR DISCOMFORT NOTED. NO S/S OF PAIN NOTED. ALL NEEDS ATTENDED. WILL CONTINUE TO MONITOR HIM.
[2018-11-22] MEDS: ATORVASTATIN 40 MG TABLET PO SCH (22:30)
--- NOTE | 2018-11-22 22:30 | NUR ---
MS RN NOTE PT C/O PAIN IN LOWER EXT'S 02/26, MORPHINE SULFATE 2 MG IVP GIVEN FOR PAIN. CONTINUE TO MONITOR HIM.
--- NOTE | 2018-11-22 23:00 | NUR ---
MS RN NOTE PT IN BED AWAKE. PAIN SUBSIDE 08/29. CONTINUE TO MONITOR HIM.
[2018-11-23] MEDS: MORPHINE SULFATE INJ 2 MG/ML DISP.SYRIN IVP PRN ×5 (02:42→22:17)
[2018-11-23 04:00] VITALS: BP 150/62
--- NOTE | 2018-11-23 06:36 | NUR ---
MS RN NOTE PT IN BED AWAKE, C/O PAIN IN LOWER EXT'S, MORPHINE 2 MG IVP GIVEN. ALL NEEDS ATTENDED. SIDE RAILS UP X 2 AND CALL LIGHT WITHIN REACH. WILL ENDORSE TO DAY SHIFT NURSE FOR CONTINUE TO CARE.
--- NOTE | 2018-11-23 07:45 | NUR ---
MS RN NOTE PT IN BED ALERT ORIENTED, HAVING BREAKFAST, ABLE TO FEED SELF A/O X 4, NO SOB, NO DISTRESS OR DISCOMFORT NOTED. NO S/S OF PAIN NOTED. ALL NEEDS ATTENDED. WILL CONTINUE TO MONITOR HIM. RT CW HD CATH IN PLACE , LFA TARYN 24 HL INTACT NO SOB NOTED AT THIS TIME
[2018-11-23] MEDS: CALCIUM ACETATE 667 MG TABLET PO SCH ×3 (07:57→17:33)
[2018-11-23 08:00] VITALS: BP 155/83
[2018-11-23] MEDS: CHOLECALCIFEROL 1,000 UNIT TABLET (VIT D3) PO SCH (08:09)
[2018-11-23] MEDS: ASPIRIN EC 81 MG TABLET.DR PO SCH (08:09)
[2018-11-23] MEDS: FUROSEMIDE 40 MG TABLET PO SCH ×2 (08:09→17:33)
[2018-11-23] MEDS: CARVEDILOL 12.5 MG TABLET PO SCH ×2 (08:10→21:22)
[2018-11-23] MEDS: DULOXETINE HCL 30 MG CAPSULE.DR PO SCH (08:10)
[2018-11-23] MEDS: APIXABAN 2.5 MG TABLET PO SCH ×2 (08:12→17:32)
[2018-11-23] MEDS: NEOMY SULF/BACITRAC ZN/POLY 15 GM TUBE TP SCH (08:14)
--- NOTE | 2018-11-23 10:00 | NUR ---
MS RN NOTE UP ON CHAIR MORPHINE 2MG IVP GIVEN ORDERED BP 155/83 SAT 98%
--- NOTE | 2018-11-23 12:00 | NUR ---
MS RN NOTE ABLE TO EAT LUNCH ABLE TO EAT SELF ,ALL NEEDS ATTENDED
--- NOTE | 2018-11-23 13:00 | NUR ---
RN NOTE TRANSFERRED TO ROOM 206 WITH STABLE CONDITION REPORT GIVEN TO TITI LIAO
--- NOTE | 2018-11-23 13:30 | NUR ---
MS 2 RN NOTE RECEIVED PT TRANSFERRED FROM [facility],REPORT RECEIVED FROM YANNI REVELES.PT IS ALERT ORIENTED X4.ABLE TO FEED SELF .NO SOB, NO DISTRESS OR DISCOMFORT NOTED. NO S/S OF PAIN NOTED. AMBULATES WITH ASSIST.WITH MULTIPLE SCABS IN BILATERAL ARMS WILL CONTINUE TO MONITOR HIM. RT CW HD CATH IN PLACE , LFA TARYN 24 HL INTACT NO SOB NOTED AT THIS TIME.CALL LIGHT PLACED WITHIN REACH.
[2018-11-23 15:32] LABS: HEMOGLOBIN 8.5 g/dL (13.5-17.5)
[2018-11-23 16:00] VITALS: BP 142/74
[2018-11-23] MEDS ORDERED: EPOETIN ALFA (10,000 UNIT) 10,000 UNIT/ML VIAL IV ONE (17:00)
--- NOTE | 2018-11-23 19:25 | NUR ---
MS LIAO OPENING NOTES: RECEIVED PT ON ROOM AIR AND IS TOLERATING WELL. NO SOB NOTED. NO S/S OF DISTRESS. PT SITTING UP AND WATCHING TELEVISION AT THIS TIME. PT A/OX4. PT HAS L CHEST WALL NGOZI CATH AND IS CLEAN AND DRY. PT HAS IV ON R WRIST #24G AND IS PATENT AND INTACT. CURRENTLY H/L. BED KEPT IN LOW, LOCKED POSITION, AND SIDE RAILS X 2UP. WILL CONTINUE TO MONITOR PT. Addendum: 11/24/18 at 0232 by JENARO NICHOLSON RN R CHEST WALL; PT ALSO HAS L FOREARM AV SHUNT.
[2018-11-23 20:00] VITALS: BP 142/81
[2018-11-23 20:14] VITALS: BP 147/85
--- NOTE | 2018-11-23 20:14 | NUR ---
MS RN CLOSING NOTES Patient comfortable and resting in bed and watching TV . A/O x 4. VS stable with no acute distress. Breathing even and unlabored on room air with no respiratory distress. Patient stated tolerable pain level. 24g PIV on RIGHT WRIST clean, dry, intact and flushing well. LEFT CHEST WALL NGOZI CATH clean, dry and intact. Safety precautions in place. Bed locked and set to lowest position with side rails x 2 up. All needs rendered at this time. Will endorse plan of care to oncoming shift.
[2018-11-23] MEDS: ATORVASTATIN 40 MG TABLET PO SCH (21:22)
--- NOTE | 2018-11-23 22:20 | NUR ---
MS RN NOTES: PT COMPLAINING OF BILATERAL LOWER LEG PAIN 02/26. PT ADMINISTERED MORPHINE 2MG IV. WILL CONTINUE TO MONITOR.
[2018-11-23 23:13] VITALS: BP 142/81
[2018-11-24] MEDS: MORPHINE SULFATE INJ 2 MG/ML DISP.SYRIN IVP PRN ×5 (02:17→20:15)
--- NOTE | 2018-11-24 02:20 | NUR ---
MS RN NOTES: PT COMPLAINING OF 8/10 BILATERAL LEG PAIN. PT WAS ADMINISTERED MORPHINE 2MG IV. WILL CONTINUE TO MONITOR.
--- NOTE | 2018-11-24 06:38 | NUR ---
MS RN NOTES: PT COMPLAINING OF 10/10 BILATERAL LOWER LEG PAIN. PT WAS ADMINISTERED MORPHINE 2MG IV. WILL CONTINUE TO MONITOR.
--- NOTE | 2018-11-24 07:01 | NUR ---
MS RN CLOSING NOTES: ALL NEEDS WERE ATTENDED AND ANTICIPATED FOR. PT REFUSED WOUND TX HE WOULD LIKE A SHOWER FIRST. IV REMAINS INTACT. R CHEST WALL NGOZI CATH REMAINS INTACT. LEFT AV SHUNT NOTED. BED KEPT IN LOW, LOCKED POSITION, AND SIDE RAILS X 2UP. PT WOULD LIKE TO REST AT THIS TIME. WILL ENDORSE TO AM NURSE FOR LYRIC.
[2018-11-24 08:00] VITALS: BP_SYST 122; BP_SYST 136; BP_DIAS 71; BP_DIAS 85
--- NOTE | 2018-11-24 08:00 | NUR ---
MS 2 RN NOTE PT IS ALERT ORIENTED X4.ABLE TO FEED SELF .NO SOB, NO DISTRESS OR DISCOMFORT NOTED. NO S/S OF PAIN NOTED. AMBULATES WITH ASSIST.WITH MULTIPLE SCABS IN BILATERAL ARMS WILL CONTINUE TO MONITOR HIM. RT CW HD CATH IN PLACE , LFA TARYN 24 HL INTACT NO SOB NOTED AT THIS TIME.CALL LIGHT PLACED WITHIN REACH.
[2018-11-24] MEDS: CALCIUM ACETATE 667 MG TABLET PO SCH ×3 (09:13→17:40)
[2018-11-24] MEDS: CHOLECALCIFEROL 1,000 UNIT TABLET (VIT D3) PO SCH (09:13)
[2018-11-24] MEDS: FUROSEMIDE 40 MG TABLET PO SCH ×2 (09:13→16:50)
[2018-11-24] MEDS: ASPIRIN EC 81 MG TABLET.DR PO SCH (09:13)
[2018-11-24] MEDS: APIXABAN 2.5 MG TABLET PO SCH ×2 (09:14→16:50)
[2018-11-24] MEDS: DULOXETINE HCL 30 MG CAPSULE.DR PO SCH (09:14)
[2018-11-24] MEDS: NEOMY SULF/BACITRAC ZN/POLY 15 GM TUBE TP SCH (09:16)
[2018-11-24 13:32] LABS: BASOPHILS % (AUTO) 0.8 % (0.0-2.0); EOSINOPHILS % (AUTO) 6.4 % (0.0-6.0); HEMATOCRIT 25 % (39-51); HEMOGLOBIN 8.5 g/dL (13.5-17.5); LYMPHOCYTES # (AUTO) 0.7 /CMM (0.8-4.8); LYMPHOCYTES % (AUTO) 17.6 % (20.0-44.0); MEAN CORPUSCULAR HGB CONC 34 g/dl (31.0-36.0); MEAN CORPUSCULAR VOLUME 95 fL (80-96); MONOCYTES # (AUTO) 0.5 /CMM (0.1-1.30); MONOCYTES % (AUTO) 12.4 % (2.0-12.0); NEUTROPHILS # (AUTO) 2.5 /CMM (1.8-8.9); NEUTROPHILS % (AUTO) 62.8 % (43.0-81.0); PLATELET COUNT (AUTO) 99 /CMM (150-450); RED BLOOD CELL COUNT(AUTO) 2.63 MIL/uL (4.5-6.0)
[2018-11-24 13:33] LABS: CALCIUM, SERUM 8.3 mg/dL (8.5-10.1); CREATININE 6.5 mg/dL (0.6-1.3); POTASSIUM 4.5 mmol/L (3.5-5.1)
--- NOTE | 2018-11-24 15:00 | NUR ---
PT'S HD PROCEDURE COMPLETED WITH STABLE V/S. BP 146/71 HR 82 WITH 3L OUTPUT.
[2018-11-24 15:10] LABS: LYMPHOCYTES % (MANUAL) 19 % (16-48); NEUTROPHILS % (MANUAL) 64 (42-76)
[2018-11-24 15:11] LABS: EOSINOPHILS % (MANUAL) 6 % (0-4); MONOCYTES % (MANUAL) 11 % (0-11.0)
[2018-11-24 16:00] VITALS: BP 128/84
[2018-11-24] MEDS ORDERED: EPOETIN ALFA (10,000 UNIT) 10,000 UNIT/ML VIAL IV ONE (16:00)
[2018-11-24] MEDS: CARVEDILOL 12.5 MG TABLET PO SCH ×2 (16:41→21:16)
--- NOTE | 2018-11-24 16:52 | NUR ---
PT REFUSED EPOGEN SAYING HE WANTS IT ADMINISTERED WITH HIS HD PROCEDURE.PT REFUSED ELIQUIS,LASIX AND PHOSLO.
--- NOTE | 2018-11-24 19:54 | NUR ---
RN MS OPENING NOTES RECEIVED PATIENT IN BED ASLEEP, EASILY AROUSABLE. VERBALLY RESPONSIVE, ABLE TO MAKE NEEDS KNOWN. BREATHING EVEN AND UNLABORED. NO SOB NOTED. TOLERATING ROOM AIR. IV ON RIGHT WRIST G24 INTACT AND PATENT. PATIENT NOTED WITH A RIGHT CHEST WALL NGOZI CATH, AND A LEFT FOREARM AV SHUNT - INTACT. SKIN DRY AND WARM TO TOUCH. AFEBRILE. ALL OTHER NEEDS ATTENDED TO. SAFETY MEASURES IN PLACE. CALL LIGHT WITHIN REACH. WILL CONTINUE TO MONITOR.
[2018-11-24 20:01] VITALS: BP 133/70
--- NOTE | 2018-11-24 20:15 | NUR ---
RN MS NOTES PT COMPLAINING OF 9/10 BILATERAL LEG PAIN. PT WAS ADMINISTERED MORPHINE 2MG IV. WILL CONTINUE TO MONITOR.
[2018-11-24] MEDS: ATORVASTATIN 40 MG TABLET PO SCH (21:15)
[2018-11-25] MEDS: MORPHINE SULFATE INJ 2 MG/ML DISP.SYRIN IVP PRN ×4 (00:16→12:50)
--- NOTE | 2018-11-25 04:21 | NUR ---
RN MS NOTES PT COMPLAINING OF 9/10 BILATERAL LEG PAIN. PT WAS ADMINISTERED MORPHINE 2MG IV. WILL CONTINUE TO MONITOR.
--- NOTE | 2018-11-25 06:54 | NUR ---
RN MS CLOSING NOTES PATIENT RESTING IN BED. NOT IN ANY DISTRESS. NO ACUTE CHANGES THROUGHOUT SHIFT. BREATHING EVEN AND UNLABORED. NO SOB NOTED. TOLERATING ROOM AIR. IV ON RIGHT WRIST G24 INTACT AND PATENT. NO COMPLAINTS OF PAIN OR DISCOMFORT. ALL OTHER NEEDS ATTENDED TO. SAFETY MEASURES IN PLACE. CALL LIGHT WITHIN REACH. WILL ENDORSE TO ONCOMING NURSE FOR LYRIC.
[2018-11-25] MEDS: CALCIUM ACETATE 667 MG TABLET PO SCH ×3 (07:54→17:27)
[2018-11-25 08:00] VITALS: BP 131/94
--- NOTE | 2018-11-25 08:00 | NUR ---
MS 2 RN AM NOTES RECEIVED PATIENT IN BED AWAKE, EATING BREAKFAST.VERBALLY RESPONSIVE, ABLE TO MAKE NEEDS KNOWN. BREATHING EVEN AND UNLABORED. NO SOB NOTED. TOLERATING ROOM AIR. IV ON RIGHT WRIST G24 INTACT AND PATENT. PATIENT NOTED WITH A RIGHT CHEST WALL NGOZI CATH, AND A LEFT FOREARM AV SHUNT - INTACT. SKIN DRY AND WARM TO TOUCH. AFEBRILE. SAFETY MEASURES IN PLACE. CALL LIGHT WITHIN REACH. WILL CONTINUE TO MONITOR.
[2018-11-25] MEDS: CHOLECALCIFEROL 1,000 UNIT TABLET (VIT D3) PO SCH (08:27)
[2018-11-25] MEDS: CARVEDILOL 12.5 MG TABLET PO SCH ×2 (08:28→21:12)
[2018-11-25] MEDS: FUROSEMIDE 40 MG TABLET PO SCH ×2 (08:28→16:31)
[2018-11-25] MEDS: ASPIRIN EC 81 MG TABLET.DR PO SCH (08:28)
[2018-11-25] MEDS: DULOXETINE HCL 30 MG CAPSULE.DR PO SCH (08:28)
[2018-11-25] MEDS: APIXABAN 2.5 MG TABLET PO SCH ×2 (08:29→16:30)
[2018-11-25] MEDS: NEOMY SULF/BACITRAC ZN/POLY 15 GM TUBE TP SCH (08:31)
--- NOTE | 2018-11-25 12:54 | NUR ---
RN NOTES PATIENT C/O ACHING AND BURNING PAIN TO LOWER EXTREMITIES WITH SCALE OF 8/10. PRN MORPHINE SULFATE 2MG/1ML IVP ADMINISTERED AT 1350. WILL CONTINUE TO MONITOR AND REASSESS PT.
[2018-11-25 16:00] VITALS: BP 128/86
[2018-11-25] MEDS: HYDROCODONE/APAP 5/325MG 1 EACH TABLET PO PRN ×2 (16:32→22:25)
--- NOTE | 2018-11-25 18:44 | NUR ---
MS RN CLOSING NOTES PATIENT IN BED AWAKE AND WATCHING TV AT THIS TIME. A/O X4. ABLE TO MAKE NEEDS KNOWN AND AMBULATORY. ON ROOM AIR, BREATHING EVEN AND UNLABORED. NO SOB NOTED. IV ACCESS ON RIGHT WRIST G#24 INTACT AND PATENT, FLUSHES WELL WITH NS. RIGHT CHEST WALL NGOZI CATHETER IN PLACE WITH DRESSING C/D/I. LEFT FOREARM AV SHUNT INTACT. SKIN DRY AND WARM TO TOUCH. AFEBRILE. ALL NEEDS AND CARE ATTENDED WELL. SAFETY MEASURES IN PLACE. CALL LIGHT WITHIN REACH. WILL ENDORSE TO INDEPENDENT DRIVER NURSE FOR LYRIC.
[2018-11-25 20:00] VITALS: BP 150/79
[2018-11-25] MEDS: ATORVASTATIN 40 MG TABLET PO SCH (21:12)
[2018-11-26] MEDS: HYDROCODONE/APAP 5/325MG 1 EACH TABLET PO PRN ×2 (04:42→12:11)
--- NOTE | 2018-11-26 06:39 | NUR ---
MS RN NOTES AWAKE & RESPONSIVE. NOT IN ANY DISTRESS. NO SOB NOTED. DENIES ANY PAIN OR DISCOMFORT AT THIS TIME. WITH IV-HL PATENT & INTACT. MONITORED ACCORDINGLY. CALL LIGHT WITHIN REACH. BED IN LOWEST POSITION. SR UP X 2 FOR SAFETY. WILL ENDORSE TO NEXT SHIFT.
--- NOTE | 2018-11-26 07:16 | NUR ---
MS RN CLOSING NOTES RECEIVED PATIENT ASLEEP IN BED, EASILY AWAKENS. HOB ELEVATED. ON ROOM AIR, BREATHING EVEN AND UNLABORED. NO SOB NOTED. IV HL ON RIGHT WRIST G#24 INTACT AND PATENT. RIGHT CHEST WALL NGOZI CATHETER IN PLACE WITH DRESSING C/D/I. LEFT FOREARM AV SHUNT INTACT. SKIN DRY AND WARM TO TOUCH. AFEBRILE. SAFETY MEASURES IN PLACE. CALL LIGHT WITHIN REACH. WILL CONTINUE TO MONITOR PT ACCORDINGLY.
[2018-11-26 08:00] VITALS: BP 145/77
[2018-11-26] MEDS: CALCIUM ACETATE 667 MG TABLET PO SCH ×3 (08:00→12:10)
[2018-11-26 08:39] VITALS: BP 145/78
[2018-11-26] MEDS: ASPIRIN EC 81 MG TABLET.DR PO SCH (08:39)
[2018-11-26] MEDS: CARVEDILOL 12.5 MG TABLET PO SCH (08:39)
[2018-11-26] MEDS: FUROSEMIDE 40 MG TABLET PO SCH ×2 (08:39→17:00)
[2018-11-26] MEDS: DULOXETINE HCL 30 MG CAPSULE.DR PO SCH (08:39)
[2018-11-26] MEDS: NEOMY SULF/BACITRAC ZN/POLY 15 GM TUBE TP SCH (08:40)
[2018-11-26] MEDS: CHOLECALCIFEROL 1,000 UNIT TABLET (VIT D3) PO SCH (08:41)
[2018-11-26] MEDS: APIXABAN 2.5 MG TABLET PO SCH ×2 (08:44→17:00)
--- NOTE | 2018-11-26 11:50 | NUR ---
RN NOTES DIALYSIS NURSE CAME TO DIALYZE PT BUT PATIENT REFUSED AND STATED THAT IF HE WILL BE DISCHARGED TODAY, HE WILL GO FOR DIALYSIS TOMORROW. WILL CONTINUE TO MONITOR.
[2018-11-26] MEDS ORDERED: DULO30CA2 PO (13:54)
--- NOTE | 2018-11-26 16:08 | NUR ---
COLOR PASTE MIXING SUPERVISOR NOTES PATIENT DISCHARGED TO [facility] AT [address] IN STABLE CONDITION. A/O X4. ABLE TO MAKE NEEDS KNOWN. CALLED [facility] OF [facility] AND AWARE OF PT'S TRANSFER. PT ALSO SPOKE TO VINCE IN THE PHONE. V/S TAKEN AND RECORDED. PHOTOS OF SKIN ISSUES TAKEN AND FILED ON CHART. ID ARMBAND REMOVED. IV ACCESS ON RIGHT WRIST REMOVED, NO BLEEDING NOTED. RCW NGOZI CATH IN PLACE WITH DRESSING CDI. ALL BELONGINGS ACCOUNTED FOR AND SIGNED CHECKLIST. PT REMINDED [facility]ACE, TIME AND DAYS OF HD. HEALTH TEACHINGS/DISCHARGE INSTRUCTIONS GIVEN TO PT AND VERBALIZED UNDERSTANDING. PRESCRIPTION FOR [facility] HANDED TO PT. PT LEFT UNIT AT 1515 AMBULATORY ACCOMPANIED BY BEAN PICKER TO LOBBY. PT WILL DRIVE FROM [facility] TO [facility]. MAP PROVIDED.
== END 2018-11-26 15:15 | disposition home or self-care (01) | DRG 194 ==
LOC: ER 13:36 → TELE1 20:02 → MEDSG1 11-19 09:59 → MEDSG2 11-23 12:50
PROVIDERS: ADMIT Nurse Practitioner Acute Care; ATTEND Nurse Practitioner Acute Care
PROC: 5A1D70Z Performance of Urinary Filtration, Intermittent, Less than 6 Hours Per Day (ICD-10-PCS; 2018-11-18)
PROC: 5A1D70Z Performance of Urinary Filtration, Intermittent, Less than 6 Hours Per Day (ICD-10-PCS; 2018-11-19)
PROC: 5A1D70Z Performance of Urinary Filtration, Intermittent, Less than 6 Hours Per Day (ICD-10-PCS; 2018-11-21)
PROC: 5A1D70Z Performance of Urinary Filtration, Intermittent, Less than 6 Hours Per Day (ICD-10-PCS; 2018-11-22)
PROC: 5A1D70Z Performance of Urinary Filtration, Intermittent, Less than 6 Hours Per Day (ICD-10-PCS; principal; 2018-11-24)
DX: I13.2 Hypertensive heart and chronic kidney disease with heart failure and with stage 5 chronic kidney disease, or end stage renal disease (principal); E11.22 Type 2 diabetes mellitus with diabetic chronic kidney disease; E44.0 Moderate protein-calorie malnutrition; E11.51 Type 2 diabetes mellitus with diabetic peripheral angiopathy without gangrene; E87.5 Hyperkalemia; I48.2 Chronic atrial fibrillation; N18.6 End stage renal disease; D63.1 Anemia in chronic kidney disease; S61.205A Unspecified open wound of left ring finger without damage to nail, initial encounter; Z99.2 Dependence on renal dialysis; I50.23 Acute on chronic systolic (congestive) heart failure; I25.10 Atherosclerotic heart disease of native coronary artery without angina pectoris; Z68.33 Body mass index [BMI] 33.0-33.9, adult; R74.0 Nonspecific elevation of levels of transaminase and lactic acid dehydrogenase [LDH]; X58.XXXA Exposure to other specified factors, initial encounter; Y92.89 Other specified places as the place of occurrence of the external cause; S30.811A Abrasion of abdominal wall, initial encounter; Z91.15 Patient's noncompliance with renal dialysis; I25.2 Old myocardial infarction; Z79.01 Long term (current) use of anticoagulants
CPT/HCPCS: 36415; 71045-TC; 80048-TC; 80076-TC; 82728-TC; 82962-TC; 83540-TC; 83735-TC; 83880; 84100-TC; 84484-TC; 85025-TC; 85027-TC; 86704; 86705; 86706; 87081-TC; 87340; 90935-TC; 93926-TC; 93970-TC; 97116-TC; 97530-TC; A6253; A6402; A6403; G0378; J0885; J1170; J1815; J2270

== ENCOUNTER 2018-12-01 14:14 | Inpatient (IN) | payer OTHER, MEDICARE ==
[~2018-12-01] VITALS: Ht 177.8 cm; Wt 103.9 kg
[~2018-12-01 14:14] MED LIST changes: -CLON0.3P TD; +DULO30CA2 PO; +FURO-144 PO; -INSU100V7 SQ
--- NOTE | 2018-12-01 14:20 | NUR ---
NEEDS DIALYSIS, LAST DIALYSIS 11/25/18. +NAUSEA BUT NO VOMITING. PT HAS SKIN SORES ALL OVER CHEST AND ARMS. PERMACATH AT RIGHT UPPER CHEST AND SHUNT AT LEFT UPPER ARM. PT IS AOX4, VSS, RR EVEN AND UNLABORED ON RA. HAS "A LOT OF DISCOMFORT". MADE COMFORTABLE, HOOKED TO MONITOR, AND READY FOR EVAL.
--- NOTE | 2018-12-01 16:13 | NUR ---
Patient is resting comfortably in bed with eyes closed. Easily aroused. VSS
[2018-12-01 16:46] LABS: BASOPHILS % (AUTO) 0.5 % (0.0-2.0); EOSINOPHILS % (AUTO) 2.7 % (0.0-6.0); HEMATOCRIT 26 % (39-51); HEMOGLOBIN 8.7 g/dL (13.5-17.5); LYMPHOCYTES # (AUTO) 0.8 /CMM (0.8-4.8); LYMPHOCYTES % (AUTO) 16.8 % (20.0-44.0); MEAN CORPUSCULAR HGB CONC 34 g/dl (31.0-36.0); MEAN CORPUSCULAR VOLUME 96 fL (80-96); MONOCYTES # (AUTO) 0.4 /CMM (0.1-1.30); MONOCYTES % (AUTO) 8.9 % (2.0-12.0); NEUTROPHILS # (AUTO) 3.2 /CMM (1.8-8.9); NEUTROPHILS % (AUTO) 71.1 % (43.0-81.0); PLATELET COUNT (AUTO) 132 /CMM (150-450); RED BLOOD CELL COUNT(AUTO) 2.67 MIL/uL (4.5-6.0); WHITE BLOOD COUNT (AUTO) 4.5 K/uL (4.3-11.0)
--- NOTE | 2018-12-01 16:48 | NUR ---
PT C/O PAIN IN LOWER EXTREMITIES. MD NOTIFIED
[2018-12-01] MEDS ORDERED: oxyCODONE/APAP (5/325 MG) 1 UDTAB TABLET ONE (16:50)
[2018-12-01 16:57] LABS: CALCIUM, SERUM 8.9 mg/dL (8.5-10.1)
[2018-12-01 16:59] LABS: CREATININE 11.2 mg/dL (0.6-1.3)
[2018-12-01] MEDS ORDERED: oxyCODONE/APAP (5/325 MG) 1 UDTAB TABLET PO ONE (17:00)
[2018-12-01] MEDS ORDERED: ONDANSETRON HCL/PF - ER 4 MG/2 ML VIAL IV ONE (17:30)
[2018-12-01] MEDS ORDERED: MORPHINE SULFATE INJ 2 MG/ML DISP.SYRIN IV ONE (17:30)
[2018-12-01] MEDS ORDERED: ONDANSETRON HCL/PF 4 MG/2 ML VIAL ONE (17:30)
[2018-12-01] MEDS ORDERED: MORPHINE SULFATE INJ 4 MG/ML DISP.SYRIN ONE (17:31)
--- NOTE | 2018-12-01 18:05 | NUR ---
CALLED FOR BED AND TURNED IN MOVE SHEET
--- NOTE | 2018-12-01 19:12 | NUR ---
PT REQUESTS ICE CHIPS. NOTIFIED
--- NOTE | 2018-12-01 20:19 | NUR ---
REPORT GIVEN TO RN FOR 118-2 TELE
--- NOTE | 2018-12-01 20:36 | NUR ---
[facility]
[2018-12-01 21:00] VITALS: BP 158/93
--- NOTE | 2018-12-01 21:00 | NUR ---
RN/ADMISSION TELE NOTES: ADMITTED PT. FROM ER VIA [facility]. PT. AMBULATED TO BED 118-2. A/O X 4. DENIES ANY C/O OF SOB AT THIS TIME. ON TELE MONITOR W/ AFIB. ABLE TO AMBULATE W/ STEADY GAIT. PT. REFUSED TO PUT THE BED ALARM ON. TECHNICAL ACCOUNT REPRESENTATIVE ASKED IF HE WILL CALL STAFF WHEN HE NEED TO USE BATHROOM. PT. REFUSED " I WILL GO BY MYSELF I DON'T NEED ANY HELP IN THAT REGARDS." PT. HAS MULTIPLE SCABS ON HIS BODY. 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 PT. HAS RT. CW NGOZI CATH W/ DRESSING INTACT. PT. ALSO HAS DRE MATURING AV SHUNT. CONTINENT OF B/B. CALL LIGHT W/ REACH. WILL CONTINUE TO MONITOR.
[2018-12-01] MEDS ORDERED: DEXTROSE 50%-WATER 50 ML DISP.SYRIN IV PRN (21:30)
[2018-12-01] MEDS ORDERED: ACETAMINOPHEN 325 MG TABLET PO PRN (21:30)
[2018-12-01] MEDS ORDERED: Z GUARD REMEDY 2 OZ OINT TP PRN (21:30)
[2018-12-01] MEDS ORDERED: ZOLPIDEM TARTRATE 5 MG TABLET PO PRN (21:30)
[2018-12-01] MEDS ORDERED: MAG HYDROX/AL HYDROX/SIMETH 30 ML UDC PO PRN (21:30)
[2018-12-01] MEDS: BLOOD SUGAR DIAGNOSTIC 1 EACH STRIP IN SCH (22:00)
[2018-12-01] MEDS: HYDROMORPHONE INJ 2 MG/ML DISP.SYRIN IV PRN (23:19)
[2018-12-01] MEDS: ATORVASTATIN 40 MG TABLET PO SCH (23:19)
[2018-12-02] VITALS: BP_SYST 156; BP_DIAS 78; BP_DIAS 93
[2018-12-02] MEDS: ONDANSETRON HCL/PF 4 MG/2 ML VIAL IVP PRN ×3 (03:27→16:52)
[2018-12-02 04:00] VITALS: BP 156/93
[2018-12-02] MEDS ORDERED: METOCLOPRAMIDE HCL 10 MG/2 ML VIAL IV PRN (05:00)
--- NOTE | 2018-12-02 07:11 | NUR ---
TELE/RN NOTES: REPORT GIVEN TO NEXT AM SHIFT NURSE FOR LYRIC.
[2018-12-02] MEDS: BLOOD SUGAR DIAGNOSTIC 1 EACH STRIP IN SCH ×5 (07:30→21:42)
--- NOTE | 2018-12-02 07:48 | NUR ---
DAY CARE SUPERVISOR NOTES RECEIVED PATIENT SLEEPING ON BEDSIDE TABLE. ABLE TO AROUSE WITH VOICE AND TOUCH. A/0 X4. NO SIGNS OR SYMPTOMS OF RESPIRATORY DISTRESS OR ACUTE PAIN NOTED. AFIB ON MONITOR AMBULATORY IN ROOM WITH BATHROOM PRIVILEGES. NOTED TO HAVE MULTIPLE SCABS ON BACK AND ARMS WOUND CONSULT ORDERED. IV ACCESS TO RAC # 18 GAUGE DRE MATURING AV SHUNT AND RCW NGOZI CATH. DIALYSIS SCHEDULED FOR TODAY. PATIENT REFUSING BREAKFAST. LAST DILAUDID GIVEN @ 8034 IVP. SAFETY/FALL PRECAUTIONS IN PLACE BED IN LOW POSITION CALL LIGHT WITHIN REACH WILL CONT TO MONITOR APPROPRIATELY
[2018-12-02 08:00] VITALS: BP 177/101
[2018-12-02] MEDS: INSULIN REGULAR, HUMAN 100 UNIT/ML 3 ML VIAL SQ PRN ×3 (08:03→16:54)
[2018-12-02 08:43] LABS: BASOPHILS % (AUTO) 0.6 % (0.0-2.0); EOSINOPHILS % (AUTO) 0.7 % (0.0-6.0); HEMATOCRIT 28 % (39-51); HEMOGLOBIN 9.6 g/dL (13.5-17.5); LYMPHOCYTES # (AUTO) 0.5 /CMM (0.8-4.8); LYMPHOCYTES % (AUTO) 7.3 % (20.0-44.0); MEAN CORPUSCULAR HGB CONC 34 g/dl (31.0-36.0); MEAN CORPUSCULAR VOLUME 94 fL (80-96); MONOCYTES # (AUTO) 0.4 /CMM (0.1-1.30); MONOCYTES % (AUTO) 5.9 % (2.0-12.0); NEUTROPHILS # (AUTO) 5.4 /CMM (1.8-8.9); NEUTROPHILS % (AUTO) 85.5 % (43.0-81.0); PLATELET COUNT (AUTO) 133 /CMM (150-450); RED BLOOD CELL COUNT(AUTO) 3.02 MIL/uL (4.5-6.0); WHITE BLOOD COUNT (AUTO) 6.3 K/uL (4.3-11.0)
[2018-12-02] MEDS: CHOLECALCIFEROL 1,000 UNIT TABLET (VIT D3) PO SCH (08:43)
[2018-12-02] MEDS: DULOXETINE HCL 30 MG CAPSULE.DR PO SCH (08:43)
[2018-12-02] MEDS: CALCIUM ACETATE 667 MG TABLET PO SCH ×3 (08:43→17:50)
[2018-12-02] MEDS: NICOTINE PATCH (14MG) 14 MG PATCH.TD24 TD SCH ×3 (08:43→09:00)
[2018-12-02] MEDS: CARVEDILOL 12.5 MG TABLET PO SCH ×2 (08:43→21:31)
[2018-12-02] MEDS: HYDROMORPHONE INJ 2 MG/ML DISP.SYRIN IV PRN ×2 (08:49→16:52)
[2018-12-02] MEDS: ASPIRIN EC 81 MG TABLET.DR PO SCH (09:00)
[2018-12-02] MEDS: APIXABAN 2.5 MG TABLET PO SCH ×2 (09:00→16:53)
[2018-12-02 09:18] LABS: ALBUMIN 3.4 g/dL (3.4-5.0); BILIRUBIN,TOTAL 1.6 mg/dL (0.2-1.0); CALCIUM, SERUM 8.9 mg/dL (8.5-10.1); MAGNESIUM 2.7 mg/dL (1.8-2.4); POTASSIUM 5.5 mmol/L (3.5-5.1); TOTAL PROTEIN, SERUM 8.2 g/dL (6.4-8.2)
[2018-12-02 09:19] LABS: CREATININE 11.3 mg/dL (0.6-1.3)
[2018-12-02] MEDS: FUROSEMIDE 40 MG TABLET PO SCH ×2 (09:35→16:51)
[2018-12-02 12:00] VITALS: BP 164/103
[2018-12-02 16:00] VITALS: BP 177/96
--- NOTE | 2018-12-02 18:50 | NUR ---
RN MS NOTES PATIENT SLEEPING IN BED. NO SIGNIFICANT CHANGES THROUGHOUT THE SHIFT ABLE TO AROUSE WITH VOICE AND TOUCH. A/0 X4. NO SIGNS OR SYMPTOMS OF RESPIRATORY DISTRESS OR ACUTE PAIN NOTED LAST DILKATIEID AND ZOFRAN GIVEN @1652 IVP AMBULATORY IN ROOM WITH BATHROOM PRIVILEGES. NOTED TO HAVE MULTIPLE SCABS ON BACK AND ARMS WOUND CONSULT ORDERED. IV ACCESS TO RAC # 18 GAUGE DRE MATURING AV SHUNT AND RCW NGOZI CATH. DIALYSIS TODAY 2000 ML OUT PATIENT REFUSING MOST MEDS AND ACCU CHECKS SAFETY/FALL PRECAUTIONS IN PLACE BED IN LOW POSITION CALL LIGHT WITHIN REACH
--- NOTE | 2018-12-02 19:23 | NUR ---
REPORT ENDORSED TO NOC
[2018-12-02 20:00] VITALS: BP 145/79
--- NOTE | 2018-12-02 20:00 | NUR ---
RN/MS NOTES: RECEIVED PATIENT SITTING AT BEDSIDE W/ HANDS RESTING ON THE TABLE AND SCRATCHING ALL OVER THE BODY. A/0 X4. NO SIGNS OR SYMPTOMS OF RESPIRATORY DISTRESS OR ACUTE PAIN NOTED. CONTINENT OF B/B. AMBULATE W/ STEADY GAIT. PT. HAS MULTIPLE SCABS ON BACK AND ARMS WOUND CONSULT ORDERED. IV ACCESS TO RAC # 18 GAUGE DRE MATURING AV SHUNT AND RCW NGOZI CATH. HAD DIALYSIS TODAY. SAFETY/FALL PRECAUTIONS IN PLACE BED IN LOW POSITION CALL LIGHT WITHIN REACH WILL CONT TO MONITOR APPROPRIATELY.
[2018-12-02] MEDS: ATORVASTATIN 40 MG TABLET PO SCH (21:30)
[2018-12-03] MEDS: HYDROMORPHONE INJ 2 MG/ML DISP.SYRIN IV PRN (01:17)
[2018-12-03 04:00] VITALS: BP 145/79
--- NOTE | 2018-12-03 07:11 | NUR ---
RN/MS NOTES: REPORT GIVEN TO NEXT SHIFT NURSE FOR LYRIC.
--- NOTE | 2018-12-03 07:28 | NUR ---
RN MS NOTES BEDSIDE REPORT GIVEN A/0 X4. NO SIGNS OR SYMPTOMS OF RESPIRATORY DISTRESS OR ACUTE PAIN NOTED. AMBULATORY IN ROOM WITH BATHROOM PRIVILEGES. NOTED TO HAVE MULTIPLE SCABS ON BACK AND ARMS WOUND CONSULT ORDERED. IV ACCESS TO RAC # 18 GAUGE DRE MATURING AV SHUNT AND RCW NGOZI CATH. DIALYSIS SCHEDULED FOR TODAY SAFETY/FALL PRECAUTIONS IN PLACE BED IN LOW POSITION CALL LIGHT WITHIN REACH WILL CONT TO MONITOR APPROPRIATELY
[2018-12-03] MEDS: BLOOD SUGAR DIAGNOSTIC 1 EACH STRIP IN SCH ×4 (07:30→21:13)
[2018-12-03] MEDS: INSULIN REGULAR, HUMAN 100 UNIT/ML 3 ML VIAL SQ PRN ×3 (07:49→17:39)
[2018-12-03 08:00] VITALS: BP 156/93
[2018-12-03] MEDS: CALCIUM ACETATE 667 MG TABLET PO SCH ×3 (08:00→17:46)
[2018-12-03] MEDS: ASPIRIN EC 81 MG TABLET.DR PO SCH (08:53)
[2018-12-03] MEDS: DULOXETINE HCL 30 MG CAPSULE.DR PO SCH (08:53)
[2018-12-03] MEDS: CARVEDILOL 12.5 MG TABLET PO SCH ×2 (08:53→21:13)
[2018-12-03] MEDS: FUROSEMIDE 40 MG TABLET PO SCH ×2 (08:54→17:41)
[2018-12-03] MEDS: APIXABAN 2.5 MG TABLET PO SCH ×2 (08:56→17:44)
[2018-12-03] MEDS: NICOTINE PATCH (14MG) 14 MG PATCH.TD24 TD SCH (08:57)
[2018-12-03] MEDS: CHOLECALCIFEROL 1,000 UNIT TABLET (VIT D3) PO SCH (08:57)
[2018-12-03 09:28] LABS: BASOPHILS % (AUTO) 0.8 % (0.0-2.0); EOSINOPHILS % (AUTO) 1.7 % (0.0-6.0); HEMATOCRIT 28 % (39-51); HEMOGLOBIN 9.2 g/dL (13.5-17.5); LYMPHOCYTES # (AUTO) 0.7 /CMM (0.8-4.8); LYMPHOCYTES % (AUTO) 14.2 % (20.0-44.0); MEAN CORPUSCULAR HGB CONC 33 g/dl (31.0-36.0); MEAN CORPUSCULAR VOLUME 95 fL (80-96); MONOCYTES # (AUTO) 0.4 /CMM (0.1-1.30); MONOCYTES % (AUTO) 7.6 % (2.0-12.0); NEUTROPHILS # (AUTO) 3.7 /CMM (1.8-8.9); NEUTROPHILS % (AUTO) 75.7 % (43.0-81.0); PLATELET COUNT (AUTO) 120 /CMM (150-450); WHITE BLOOD COUNT (AUTO) 4.9 K/uL (4.3-11.0)
[2018-12-03 09:49] LABS: MAGNESIUM 2.5 mg/dL (1.8-2.4); PHOSPHORUS 7.3 mg/dL (2.5-4.9)
[2018-12-03 09:50] LABS: CREATININE 8.6 mg/dL (0.6-1.3)
[2018-12-03 16:00] VITALS: BP 157/80
--- NOTE | 2018-12-03 18:40 | NUR ---
RN MS NOTES NO SIGNIFICANT CHANGES THROUGHOUT THE SHIFT ABLE TO AROUSE WITH VOICE AND TOUCH. A/0 X4. NO SIGNS OR SYMPTOMS OF RESPIRATORY DISTRESS OR ACUTE PAIN NOTED AMBULATORY IN ROOM WITH BATHROOM PRIVILEGES. NOTED TO HAVE MULTIPLE SCABS ON BACK AND ARMS WOUND CONSULT ORDERED. IV ACCESS TO RAC # 18 GAUGE DRE MATURING AV SHUNT AND RCW NGOZI CATH. DIALYSIS TODAY 2500 ML OUT PATIENT REFUSING MOST MEDS AND ACCU CHECKS SAFETY/FALL PRECAUTIONS IN PLACE BED IN LOW POSITION CALL LIGHT WITHIN REACH
--- NOTE | 2018-12-03 19:18 | NUR ---
REPORT ENDORSED TO NOC
--- NOTE | 2018-12-03 20:00 | NUR ---
RN/MS NOTES: RECEIVED PATIENT IN BEDSIDE SLEEPING BUT EASILY AROUSABLE. A/0 X4. NO SIGNS OR SYMPTOMS OF RESPIRATORY DISTRESS OR ACUTE PAIN NOTED. CONTINENT OF B/B. AMBULATE W/ STEADY GAIT. PT. HAS MULTIPLE SCABS ON BACK AND ARMS WOUND CONSULT ORDERED. IV ACCESS TO RAC # 18 GAUGE DRE MATURING AV SHUNT AND RCW NGOZI CATH. HAD DIALYSIS TODAY. PT. REFUSED HIS BLOOD SUGAR CHECK STATED " I AM NOT DIABETIC I DON'T NEED THIS CRAP. " EDUCATED ON THE IMPORTANCE BUT PT. STILL REFUSED. SAFETY/FALL PRECAUTIONS IN PLACE BED IN LOW POSITION CALL LIGHT WITHIN REACH WILL CONT TO MONITOR APPROPRIATELY.
[2018-12-03] MEDS: ATORVASTATIN 40 MG TABLET PO SCH (21:13)
[2018-12-04 04:00] VITALS: BP 128/60
--- NOTE | 2018-12-04 07:21 | NUR ---
RN/MS NOTES: REPORT GIVEN TO NEXT SHIFT NURSE FOR LYRIC.
[2018-12-04] MEDS: BLOOD SUGAR DIAGNOSTIC 1 EACH STRIP IN SCH ×5 (07:30→21:11)
[2018-12-04] MEDS: CALCIUM ACETATE 667 MG TABLET PO SCH ×4 (07:48→17:44)
[2018-12-04 08:00] VITALS: BP 155/91
--- NOTE | 2018-12-04 08:00 | NUR ---
MS RN OPENING NOTES RECEIVED PATIENT IN BED, A/O X 4. NO SOB OR SIGNS OR SYMPTOMS OF DISTRESS OR ACUTE PAIN NOTED. AMBULATORY IN ROOM WITH BATHROOM PRIVILEGES. NOTED TO HAVE MULTIPLE SCABS ON BACK AND ARMS WOUND CONSULT ORDERED. IV ACCESS TO RAC # 18 GAUGE DRE MATURING AV SHUNT AND RCW NGOZI CATH. DIALYSIS SCHEDULED FOR TODAY SAFETY/FALL PRECAUTIONS IN PLACE BED IN LOW POSITION CALL LIGHT WITHIN REACH WILL CONT TO MONITOR APPROPRIATELY
[2018-12-04] MEDS: CHOLECALCIFEROL 1,000 UNIT TABLET (VIT D3) PO SCH (09:00)
[2018-12-04] MEDS: NICOTINE PATCH (14MG) 14 MG PATCH.TD24 TD SCH (09:00)
[2018-12-04] MEDS: ASPIRIN EC 81 MG TABLET.DR PO SCH (09:32)
[2018-12-04] MEDS: FUROSEMIDE 40 MG TABLET PO SCH ×2 (09:32→17:42)
[2018-12-04] MEDS: CARVEDILOL 12.5 MG TABLET PO SCH ×2 (09:32→21:06)
[2018-12-04] MEDS: DULOXETINE HCL 30 MG CAPSULE.DR PO SCH (09:33)
[2018-12-04] MEDS: APIXABAN 2.5 MG TABLET PO SCH ×2 (09:35→17:42)
[2018-12-04] MEDS: HYDROMORPHONE HCL 2 MG TABLET PO PRN ×2 (12:07→20:14)
[2018-12-04 12:23] LABS: BASOPHILS % (AUTO) 0.8 % (0.0-2.0); EOSINOPHILS % (AUTO) 3.2 % (0.0-6.0); HEMATOCRIT 27 % (39-51); HEMOGLOBIN 8.9 g/dL (13.5-17.5); LYMPHOCYTES # (AUTO) 0.7 /CMM (0.8-4.8); LYMPHOCYTES % (AUTO) 16.1 % (20.0-44.0); MEAN CORPUSCULAR HGB CONC 34 g/dl (31.0-36.0); MEAN CORPUSCULAR VOLUME 95 fL (80-96); MONOCYTES # (AUTO) 0.4 /CMM (0.1-1.30); MONOCYTES % (AUTO) 9.5 % (2.0-12.0); NEUTROPHILS # (AUTO) 3.2 /CMM (1.8-8.9); NEUTROPHILS % (AUTO) 70.4 % (43.0-81.0); PLATELET COUNT (AUTO) 108 /CMM (150-450); RED BLOOD CELL COUNT(AUTO) 2.81 MIL/uL (4.5-6.0); WHITE BLOOD COUNT (AUTO) 4.6 K/uL (4.3-11.0)
[2018-12-04 12:37] LABS: CALCIUM, SERUM 8.7 mg/dL (8.5-10.1); CREATININE 7.3 mg/dL (0.6-1.3); MAGNESIUM 2.3 mg/dL (1.8-2.4); PHOSPHORUS 6.3 mg/dL (2.5-4.9); POTASSIUM 3.8 mmol/L (3.5-5.1)
--- NOTE | 2018-12-04 14:00 | NUR ---
PATIENT WANTS TO SMOKE. PATIENT SIGNED SMOKING WAIVER. PATIENT WAS ESCORTED OUTSIDE BY WETLAND SCIENTIST. PATIENT RETURNED TO ROOM WHEN FINISHED.
[2018-12-04] MEDS: HYDROCODONE/APAP 5/325MG 1 EACH TABLET PO PRN ×2 (15:11→21:15)
[2018-12-04 16:00] VITALS: BP 159/71
--- NOTE | 2018-12-04 19:30 | NUR ---
RN INITIAL NOTES: RECEIVED REPORT FROM SERG LIAO. PT IN BED, AWAKE, A/O X3 ON RA RESPIRATION EVEN AND UNLABORED. IV ACCESS PATENT AND FLUSHING WELL, ON HL. PT S/P HD ON 12/03/18 2.5L OUTPUT. RCW NGOZI CATH IN PLACED, DRESSING C/D/I, NO ACTIVE BLEEDING NOTED, PT ALSO HAVE DRE AV SHUNT. DISCUSSED PLAN OF CARE TO PT. PT KNOWN TO BE NON COMPLAINT WITH MEDS AND TREATMENT PLAN PER REPORT, AWARE. SAFETY PRECAUTIONS FOR FALL INITIATED, CALL LIGHT IN REACH, WILL CONTINUE MONITORING PT.
--- NOTE | 2018-12-04 19:48 | NUR ---
RN NOTES: PT WENT OUT TO SMOKE, ACCOMPANIED BY PLUNGER SCOOP OPERATOR PZ, PT SIGNED SMOKING CONSENT, AWARE
[2018-12-04 20:00] VITALS: BP 151/91
--- NOTE | 2018-12-04 20:14 | NUR ---
PRN DILAUDID TAB: PT C/O 02/26 LEG AND BACK PAIN REQUESTING FOR DILAUDID TABLET, PRN DILAUDID 2MG TAB PO ADMINISTERED TO THE PT AT THIS TIME, WILL CONTINUE TO MONTIOR FOR EFFECTIVENESS AND REASSESS PAIN LEVEL.
--- NOTE | 2018-12-04 20:26 | NUR ---
MS YANNI OPENING NOTES PATIENT IN BED, A/O X 4. NO SOB OR SIGNS OR SYMPTOMS OF DISTRESS OR ACUTE PAIN NOTED. AMBULATORY IN ROOM WITH BATHROOM PRIVILEGES. NOTED TO HAVE MULTIPLE SCABS ON BACK AND ARMS WOUND CONSULT ORDERED. IV ACCESS TO RAC # 18 GAUGE DRE MATURING AV SHUNT AND RCW NGOZI CATH. DIALYSIS SCHEDULED FOR TODAY SAFETY/FALL PRECAUTIONS IN PLACE BED IN LOW POSITION. CARE ENDORSED TO ELEMENTARY VOCAL MUSIC TEACHER RN. Addendum: 12/04/18 at 2027 by SHELIA SANZ RN MS LIAO CLOSING NOTE
[2018-12-04 21:05] VITALS: BP 138/76
[2018-12-04] MEDS: ATORVASTATIN 40 MG TABLET PO SCH (21:06)
[2018-12-04] MEDS: INSULIN REGULAR, HUMAN 100 UNIT/ML 3 ML VIAL SQ PRN (21:11)
--- NOTE | 2018-12-04 21:11 | NUR ---
REFUSED ACCU CHECK: PT REFUSED ACCU CHECK STATED HE DOENT CHECK HIS BLOOD SUGAR AT HOME, EDUCATE PT REGARDING RISK AND BENEFITS, PT A/O X4 ABLE TO MAKE DECISION FOR HIMSELF, KNOWN TO BE NON COMPLIANT WITH TREATMENT
--- NOTE | 2018-12-04 21:16 | NUR ---
PRN NORCO: PT COMPLAINING THAT HIS DILAUDID ISNT EFFECTIVE FOR MANAGING HIS LEG AND BACK PAIN, REQUESTING FOR NORCO PS 12/27, PRN NORCO 5/325 MG TAB PO ADMINISTERED AT THIS TIME, WILL CONTINUE TO MONITOR AND REASSESS PT
--- NOTE | 2018-12-05 00:30 | NUR ---
rn notes: dialysis nurse came to the unit to do hd for the pt
[2018-12-05] MEDS: HYDROMORPHONE HCL 2 MG TABLET PO PRN ×3 (02:23→18:46)
--- NOTE | 2018-12-05 02:23 | NUR ---
prn dilaudid tab: pt c/o generalized pain 02/26 requesting for dilaudid, prn dilaudid 2mg tab po administered at this time, will continue to monitor and reassess pt
--- NOTE | 2018-12-05 02:36 | NUR ---
rn notes: HD completed, 2000 ml removed.
[2018-12-05 04:00] VITALS: BP 130/66
[2018-12-05] MEDS: HYDROCODONE/APAP 5/325MG 1 EACH TABLET PO PRN ×3 (05:29→22:03)
--- NOTE | 2018-12-05 05:29 | NUR ---
prn norco: pt c/o generalized pain 01/26 requesting for norco, prn norco 5/325 mg tab po administered to the pt at this time, will continue to monitor and reassess pt
--- NOTE | 2018-12-05 06:38 | NUR ---
rn closing notes: pt remains a/o x3, on ra, last pain meds administered at 0529am. iv access remains patent and flushing well, on hl. vs remains stable, needs attended, no further complaints noted. safety precautions for fall remains engaged, call light in reach, will endorse to day rn for continuity of care.
[2018-12-05] MEDS: BLOOD SUGAR DIAGNOSTIC 1 EACH STRIP IN SCH ×4 (07:30→21:36)
[2018-12-05] MEDS: CALCIUM ACETATE 667 MG TABLET PO SCH ×3 (07:59→18:32)
[2018-12-05 08:00] VITALS: BP 161/96
[2018-12-05] MEDS: CHOLECALCIFEROL 1,000 UNIT TABLET (VIT D3) PO SCH (08:00)
[2018-12-05] MEDS: NICOTINE PATCH (14MG) 14 MG PATCH.TD24 TD SCH (08:01)
[2018-12-05] MEDS: FUROSEMIDE 40 MG TABLET PO SCH ×2 (08:46→18:32)
[2018-12-05] MEDS: ASPIRIN EC 81 MG TABLET.DR PO SCH (08:46)
[2018-12-05] MEDS: CARVEDILOL 12.5 MG TABLET PO SCH ×2 (08:47→21:32)
[2018-12-05] MEDS: DULOXETINE HCL 30 MG CAPSULE.DR PO SCH (08:47)
[2018-12-05] MEDS: APIXABAN 2.5 MG TABLET PO SCH ×2 (08:52→18:31)
[2018-12-05 16:00] VITALS: BP_SYST 137; BP_SYST 149; BP_DIAS 70; BP_DIAS 84
--- NOTE | 2018-12-05 19:35 | NUR ---
MS/RN OPENING NOTES PT RECEIVED ASLEEP, OPENS EYES TO NAME AND TACTILE STIMULI. ON ROOM AIR, BREATHING EVEN AND UNLABORED. NO S/S OF SOB OR PAIN AT THIS TIME. RECENTLY RECEIVED PAIN MEDS. RCW HD CATH IN PLACE WITH DRESSING C/D/I. DRE AV SHUNT. BED IN LOW/LOCKED POSITION WITH CALL LIGHT IN REACH. BILAT UPPER SIDE RAILS IN PLACE. WILL CONTINUE TO MONITOR
[2018-12-05 20:00] VITALS: BP 139/53
[2018-12-05 20:12] VITALS: BP 139/53
[2018-12-05] MEDS: ATORVASTATIN 40 MG TABLET PO SCH (21:32)
--- NOTE | 2018-12-05 21:37 | NUR ---
MS/RN NOTES PM MEDS ADMINISTERED. PT REFUSED ACCUCHECK DESPITE EDUCATION X3. CURRENTLY EATING A PB&J SANDWICH. ALSO REFUSING PHOTOS, AWARE OF HOSPITAL POLICY AND STILL STRONGLY REFUSING. STATES "YOU ALREADY HAVE PHOTOS OF MY SKIN".
--- NOTE | 2018-12-05 22:05 | NUR ---
PRN NORCO PT C/O BLE PAIN 01/26. REQUESTING PRN NORCO. ADMINISTERED ORDERED. NO OTHER NEEDS EXPRESSED AT THIS TIME.
[2018-12-06] MEDS: HYDROMORPHONE HCL 2 MG TABLET PO PRN ×3 (01:16→20:04)
--- NOTE | 2018-12-06 01:17 | NUR ---
MS/RN NOTES PT C/O 02/26 PAIN TO BLE. REQUESTING PAIN MEDICATIONS. ADMINISTERED DILAUDID 2MG TABLET ORDERED.
[2018-12-06 04:00] VITALS: BP 157/81
--- NOTE | 2018-12-06 04:00 | NUR ---
ROUNDING PT ASLEEP, BREATHING EVEN AND UNLABORED. IN NO ACUTE DISTRESS.
[2018-12-06 04:35] VITALS: BP 157/81
--- NOTE | 2018-12-06 06:22 | NUR ---
MS/RN NOTES REFUSED AM LABS DESPITE EDUCATION. WILL ENDORSE TO DAY SHIFT RN LYRIC.
--- NOTE | 2018-12-06 06:32 | NUR ---
MS/RN CLOSING NOTES PT AWAKE, A/OX3. ON ROOM AIR, BREATHING EVEN AND UNLABORED. DENIES SOB AND PAIN AT THIS TIME. RCW HD CATH WITH C/D/I DRESSING. DRE MATURING AV SHUNT. RAC PATENT AND INTACT. NO SIGNIFICANT CHANGES OVERNIGHT. BED IN LOW/LOCKED POSITION WITH CALL LIGHT IN REACH. BILAT UPPER SIDE RAILS IN PLACE. HOB ELEVATED. WILL ENDORSE TO DAY SHIFT RN LYRIC.
--- NOTE | 2018-12-06 07:23 | NUR ---
RN MS NOTES BEDSIDE REPORT GIVEN PATIENT A/0 X4. NO SIGNS OR SYMPTOMS OF RESPIRATORY DISTRESS OR ACUTE PAIN NOTED. C/O NAUSEA AMBULATORY IN ROOM WITH BATHROOM PRIVILEGES. NOTED TO HAVE MULTIPLE SCABS ON BACK AND ARMS IV ACCESS TO RAC # 18 GAUGE DRE MATURING AV SHUNT AND RCW NGOZI CATH. DIALYSIS SCHEDULED FOR TODAY. PATIENT REFUSING LABS. SAFETY/FALL PRECAUTIONS IN PLACE BED IN LOW POSITION CALL LIGHT WITHIN REACH WILL CONT TO MONITOR APPROPRIATELY
[2018-12-06] MEDS: BLOOD SUGAR DIAGNOSTIC 1 EACH STRIP IN SCH ×4 (07:30→21:32)
[2018-12-06] MEDS: INSULIN REGULAR, HUMAN 100 UNIT/ML 3 ML VIAL SQ PRN ×2 (07:42→11:49)
[2018-12-06 08:00] VITALS: BP 163/88
[2018-12-06] MEDS: CALCIUM ACETATE 667 MG TABLET PO SCH ×3 (08:00→17:31)
[2018-12-06] MEDS: ASPIRIN EC 81 MG TABLET.DR PO SCH (08:00)
[2018-12-06] MEDS: CARVEDILOL 12.5 MG TABLET PO SCH ×2 (08:01→20:04)
[2018-12-06] MEDS: FUROSEMIDE 40 MG TABLET PO SCH ×2 (08:01→16:44)
[2018-12-06] MEDS: DULOXETINE HCL 30 MG CAPSULE.DR PO SCH (08:01)
[2018-12-06] MEDS: CHOLECALCIFEROL 1,000 UNIT TABLET (VIT D3) PO SCH (08:06)
[2018-12-06] MEDS: APIXABAN 2.5 MG TABLET PO SCH ×2 (08:06→16:45)
[2018-12-06] MEDS: NICOTINE PATCH (14MG) 14 MG PATCH.TD24 TD SCH (08:06)
[2018-12-06] MEDS: HYDROCODONE/APAP 5/325MG 1 EACH TABLET PO PRN ×2 (12:27→23:14)
[2018-12-06 16:00] VITALS: BP 143/72
[2018-12-06] MEDS ORDERED: NEOMY SULF/BACITRAC ZN/POLY 15 GM TUBE TP SCH (16:00)
[2018-12-06] MEDS ORDERED: diphenhydrAMINE HCL/ZINC ACET CREAM 28.3 GM TUBE TP PRN (16:00)
--- NOTE | 2018-12-06 18:52 | NUR ---
RN MS NOTES NO SIGNIFICANT CHANGES THROUGHOUT THE SHIFT PATIENT A/0 X4. NO SIGNS OR SYMPTOMS OF RESPIRATORY DISTRESS OR ACUTE PAIN NOTED. C/O NAUSEA PAIN MEDS GIVEN ACCORDINGLY AMBULATORY IN ROOM WITH BATHROOM PRIVILEGES. HD DONE TODAY 2 LTRS REMOVED.ORDER FOR BENADRYL CREAM NOT AVAILABLE TILL TOMORROW 12/07 NOTED TO HAVE MULTIPLE SCABS ON BACK AND ARMS IV ACCESS TO RAC # 18 GAUGE DRE MATURING AV SHUNT AND RCW NGOZI CATH. DIALYSIS SCHEDULED FOR TODAY. PATIENT REFUSING LABS. SAFETY/FALL PRECAUTIONS IN PLACE BED IN LOW POSITION CALL LIGHT WITHIN REACH
--- NOTE | 2018-12-06 19:13 | NUR ---
REPORT ENDORSED TO NOC
--- NOTE | 2018-12-06 19:45 | NUR ---
MS RN NOTE: RECEIVED PT ON BED ALERT AND ORIENTED X3. ABLE TO MAKE NEEDS KNOWN. NO APPARENT DISTRESS NOTED. COMPLAINED OF GENERALIZED PAIN, PRN PAIN MEDS WILL BE GIVEN. BP ELEVATED, DUE BP MEDS WILL BE GIVEN AND WILL RECHECK BP AFTER 30MINS. ON ROOM AIR, NO SOB NOTED. KEPT CLEAN, DRY AND COMFORTABLE. SAFETY AND FALL PRECAUTIONS OBSERVED AND MAINTAINED. WILL CONTINUE TO MONITOR PT.
[2018-12-06 20:00] VITALS: BP 163/89
[2018-12-06 21:00] VITALS: BP 149/72
--- NOTE | 2018-12-06 21:00 | NUR ---
MS RN NOTE: BP RECHECKED IT WENT DOWN TO 149/72. PT ALSO REFUSED ACCUCHECK, PER PT "I DON'T DO BLOOD SUGAR CHECKS". EXPLAINED RISKS AND BENEFITS BUT PT STILL REFUSED.
[2018-12-06] MEDS: ATORVASTATIN 40 MG TABLET PO SCH (21:43)
[2018-12-06] MEDS ORDERED: VITAMINS A AND D 56.7 GM TUBE TP PRN (22:30)
[2018-12-07] MEDS: HYDROMORPHONE HCL 2 MG TABLET PO PRN ×4 (02:39→21:25)
[2018-12-07 04:00] VITALS: BP 142/63
--- NOTE | 2018-12-07 06:36 | NUR ---
MS RN NOTE: NO CHANGES NOTED THROUGHOUT THE SHIFT. NO APPARENT DISTRESS NOTED. NO COMPLAINTS OF PAIN OR DISCOMFORT AT THIS TIME. ON ROOM AIR, NO SOB NOTED. KEPT CLEAN, DRY AND COMFORTABLE. SAFETY AND FALL PRECAUTIONS OBSERVED AND MAINTAINED. WILL ENDORSE TO DAY SHIFT RN FOR CONTINUITY OF CARE.
[2018-12-07] MEDS: BLOOD SUGAR DIAGNOSTIC 1 EACH STRIP IN SCH ×4 (07:30→21:25)
[2018-12-07 08:00] VITALS: BP 171/80
[2018-12-07] MEDS: ASPIRIN EC 81 MG TABLET.DR PO SCH (08:00)
[2018-12-07] MEDS: CHOLECALCIFEROL 1,000 UNIT TABLET (VIT D3) PO SCH (08:00)
[2018-12-07] MEDS: CALCIUM ACETATE 667 MG TABLET PO SCH ×3 (08:01→17:48)
[2018-12-07] MEDS: DULOXETINE HCL 30 MG CAPSULE.DR PO SCH (08:01)
[2018-12-07] MEDS: FUROSEMIDE 40 MG TABLET PO SCH ×2 (08:01→17:42)
[2018-12-07] MEDS: CARVEDILOL 12.5 MG TABLET PO SCH ×2 (08:02→21:24)
[2018-12-07] MEDS: APIXABAN 2.5 MG TABLET PO SCH ×3 (08:04→17:48)
--- NOTE | 2018-12-07 08:04 | NUR ---
RN NOTE HELD ELIQUIS DUE TO LOW PLATELET COUNT. PATIENT REFUSING LABS AND GLUCOSE MONITORING.
[2018-12-07] MEDS: LEVETIRACETAM (250 MG) 250 MG TABLET PO SCH (08:09)
[2018-12-07] MEDS: NICOTINE PATCH (14MG) 14 MG PATCH.TD24 TD SCH (09:00)
[2018-12-07 16:00] VITALS: BP 120/75
[2018-12-07] MEDS: HYDROCODONE/APAP 5/325MG 1 EACH TABLET PO PRN (18:56)
[2018-12-07 20:00] VITALS: BP 150/59
--- NOTE | 2018-12-07 20:30 | NUR ---
RN OPENING NOTES RECEIVED REPORT FROM JOELLEN Bowie RN. PATIENT A/A/O X4. BREATHING EVEN & UNLABORED, TOLERATING ROOM AIR. DENIES ANY SOB OR DIFFICULTY BREATHING. BILATERAL RADIAL PULSES PRESENT. NO IV SITE NOTED & PATIENT REFUSED A NEW ONE INSERTED. LEFT UPPER ARM AV SHUNT PRESENT & RIGHT CHEST WALL HD CATH W/ DRESSING CDI & NO SIGNS OF BLEEDING OR SWELLING NOTED. ABLE TO AMBULATE INDEPENDENTLY BUT INSTRUCTED TO USE CALL LIGHT FOR ASSISTANCE. RESTING COMFORTABLY IN BED. WILL CONTINUE TO MONITOR.
[2018-12-07] MEDS: ATORVASTATIN 40 MG TABLET PO SCH (21:24)
[2018-12-07] MEDS: INSULIN REGULAR, HUMAN 100 UNIT/ML 3 ML VIAL SQ PRN (21:26)
--- NOTE | 2018-12-07 21:45 | NUR ---
RN NOTES HD COMPLETED W/ 2.2 LITERS OUT. PATIENT ALSO REFUSED ACCUCHECK W/ RISKS & BENEFITS EXPLAINED.
[2018-12-08 04:00] VITALS: BP 130/58
[2018-12-08] MEDS: BLOOD SUGAR DIAGNOSTIC 1 EACH STRIP IN SCH ×2 (07:30→12:00)
--- NOTE | 2018-12-08 07:57 | NUR ---
MS RN OPENING NOTES RECEIVED PATIENT UPRIGHT IN BED, A/O X4. NO SOB OR ACUTE DISTRESS NOTED. ON ROOM AIR. NO IV SITE NOTED & PATIENT CONTINUES TO REFUSE PLACEMENT OF NEW IV. L UPPER ARM AV SHUNT PRESENT & RIGHT CHEST WALL HD CATH W/ DRESSING CDI & NO SIGNS OF BLEEDING OR SWELLING NOTED. ABLE TO AMBULATE INDEPENDENTLY BUT INSTRUCTED TO USE CALL LIGHT FOR ASSISTANCE. RESTING COMFORTABLY IN BED. SAFETY MEASURES ON PLACE, CALL LIGHT WITHIN REACH, BED IN LOW LOCKED POSITION. WILL CONTINUE TO MONITOR.
[2018-12-08 08:00] VITALS: BP 152/82
[2018-12-08] MEDS: CALCIUM ACETATE 667 MG TABLET PO SCH ×2 (08:00→12:23)
[2018-12-08] MEDS: NICOTINE PATCH (14MG) 14 MG PATCH.TD24 TD SCH (08:06)
[2018-12-08] MEDS: LEVETIRACETAM (250 MG) 250 MG TABLET PO SCH ×2 (08:59→09:00)
[2018-12-08] MEDS: ASPIRIN EC 81 MG TABLET.DR PO SCH (08:59)
[2018-12-08] MEDS: FUROSEMIDE 40 MG TABLET PO SCH (08:59)
[2018-12-08] MEDS: DULOXETINE HCL 30 MG CAPSULE.DR PO SCH (08:59)
[2018-12-08 09:00] VITALS: BP 152/82
[2018-12-08] MEDS: CARVEDILOL 12.5 MG TABLET PO SCH (09:00)
[2018-12-08] MEDS: CHOLECALCIFEROL 1,000 UNIT TABLET (VIT D3) PO SCH (09:00)
[2018-12-08] MEDS: APIXABAN 2.5 MG TABLET PO SCH (09:02)
[2018-12-08] MEDS: HYDROMORPHONE HCL 2 MG TABLET PO PRN (09:07)
--- NOTE | 2018-12-08 12:54 | NUR ---
PER CM ISAMAR PATIENT IS SET UP AT [facility] [id number] [facility].
[2018-12-08] MEDS ORDERED: BACI/NEOM/POLY B OINT PKT 1 UDPKT PACKET TP SCH (15:00)
--- NOTE | 2018-12-08 15:16 | NUR ---
MS INSURANCE BROKER NOTES PATIENT DISCHARGED TO HOME AMBULATORY. PATIENT A/O X4. NO SOB OR ACUTE DISTRESS NOTED. ON ROOM AIR. NO IV SITE NOTED. L UPPER ARM AV SHUNT PRESENT & RIGHT CHEST WALL HD CATH W/ DRESSING CDI & NO SIGNS OF BLEEDING OR SWELLING NOTED. ABLE TO AMBULATE INDEPENDENTLY. LEFT HOSPITAL SOLO WITH RN ESCORT TO THE EXIT. ALL WOUND CARE COMPLETED, V/S WNL. NO TELE METER ON PATIENT. BELONGINGS LIST COMPLETED, ALL DISCHARGE PAPERWORK AND EDUCATION COMPLETED AND GIVEN TO PATIENT INCLUDING MEDICATION LIST. WOUND PICTURES COMPLETED EXCEPT FOR FEET/TOES D/T PATIENT REFUSAL. DISCHARGE COMPLETED W/O INCIDENT.
== END 2018-12-08 15:30 | disposition home or self-care (01) | DRG 194 ==
LOC: ER 14:14 → TELE1 20:13 → MEDSG1 12-02 12:17
PROVIDERS: ADMIT Nurse Practitioner Acute Care; ATTEND Hospitalist
PROC: 5A1D70Z Performance of Urinary Filtration, Intermittent, Less than 6 Hours Per Day (ICD-10-PCS; principal; 2018-12-02)
PROC: 5A1D70Z Performance of Urinary Filtration, Intermittent, Less than 6 Hours Per Day (ICD-10-PCS; 2018-12-03)
PROC: 5A1D70Z Performance of Urinary Filtration, Intermittent, Less than 6 Hours Per Day (ICD-10-PCS; 2018-12-04)
PROC: 5A1D70Z Performance of Urinary Filtration, Intermittent, Less than 6 Hours Per Day (ICD-10-PCS; 2018-12-06)
PROC: 5A1D70Z Performance of Urinary Filtration, Intermittent, Less than 6 Hours Per Day (ICD-10-PCS; 2018-12-07)
DX: I13.2 Hypertensive heart and chronic kidney disease with heart failure and with stage 5 chronic kidney disease, or end stage renal disease (principal); E11.22 Type 2 diabetes mellitus with diabetic chronic kidney disease; D69.6 Thrombocytopenia, unspecified; J90 Pleural effusion, not elsewhere classified; E83.39 Other disorders of phosphorus metabolism; N18.6 End stage renal disease; E83.41 Hypermagnesemia; E87.5 Hyperkalemia; I25.10 Atherosclerotic heart disease of native coronary artery without angina pectoris; Z99.2 Dependence on renal dialysis; I50.33 Acute on chronic diastolic (congestive) heart failure; F17.210 Nicotine dependence, cigarettes, uncomplicated; E66.9 Obesity, unspecified; I48.91 Unspecified atrial fibrillation; Z91.15 Patient's noncompliance with renal dialysis; D63.1 Anemia in chronic kidney disease; Z68.32 Body mass index [BMI] 32.0-32.9, adult; N30.90 Cystitis, unspecified without hematuria; S40.812A Abrasion of left upper arm, initial encounter; S40.811A Abrasion of right upper arm, initial encounter; Y93.9 Activity, unspecified; S30.811A Abrasion of abdominal wall, initial encounter; R18.8 Other ascites; S61.205A Unspecified open wound of left ring finger without damage to nail, initial encounter; Z79.01 Long term (current) use of anticoagulants; X58.XXXA Exposure to other specified factors, initial encounter; Y92.009 Unspecified place in unspecified non-institutional (private) residence as the place of occurrence of the external cause
CPT/HCPCS: 36415; 71045-TC; 80048-TC; 80053-TC; 82962-TC; 83735-TC; 84100-TC; 84484-TC; 85025-TC; 85730-TC; 86704; 86706; 87081-TC; 87340; 90935-TC; A6402; G0378; J1170; J1815; J2270; J2405; J2765

== ENCOUNTER 2018-12-21 21:37 | Inpatient (IN) | payer MEDICARE, OTHER ==
[~2018-12-21] VITALS: Ht 180.3 cm; Wt 108.9 kg
--- NOTE | 2018-12-21 21:55 | NUR ---
LIZZY FROM HOME. AAOX4. BREATHING EVEN AND UNLABORED. AMBULATORY. PT CAME IN FROM BEING AMA FROM [place] WHILE BEING TREATED FOR INFECTED HD CATH ON CHEST. PT HAS BEEN ADMITTED IN THE PAST 6 DAYS AND HAD TO AMA FOR FAMILY EMERGENCY. PT STATES THAT HE WANTS TO BE READMITTED. PT IS ALSO COMPLAINING OF BILAT LEG PAIN 03/29. TO ER BED 4. AWAITING MD FOR EVAL
[2018-12-21] MEDS ORDERED: NITROGLYCERIN PACKET 1 GM PACKET ONE (22:19)
[2018-12-21] MEDS ORDERED: NITROGLYCERIN PACKET 1 GM PACKET TD ONE (22:30)
--- NOTE | 2018-12-21 22:30 | NUR ---
IV LINE OBTAINED ON R UPPER ARM 18G. BLOOD DRAWN GIVEN TO FINANCE BUSINESS PARTNER AT BEDSIDE
[2018-12-21 22:31] LABS: LYMPHOCYTES # (AUTO) 0.9 /CMM (0.8-4.8); MONOCYTES # (AUTO) 0.8 /CMM (0.1-1.30); WHITE BLOOD COUNT (AUTO) 4.1 K/uL (4.3-11.0)
[2018-12-21 22:35] LABS: BASOPHILS % (AUTO) 0.8 % (0.0-2.0); EOSINOPHILS % (AUTO) 5.6 % (0.0-6.0); HEMATOCRIT 25 % (39-51); HEMOGLOBIN 8.3 g/dL (13.5-17.5); LYMPHOCYTES % (AUTO) 22.1 % (20.0-44.0); MEAN CORPUSCULAR HGB CONC 34 g/dl (31.0-36.0); MEAN CORPUSCULAR VOLUME 93 fL (80-96); MONOCYTES % (AUTO) 18.6 % (2.0-12.0); NEUTROPHILS # (AUTO) 2.2 /CMM (1.8-8.9); NEUTROPHILS % (AUTO) 52.9 % (43.0-81.0); PLATELET COUNT (AUTO) 94 /CMM (150-450); RED BLOOD CELL COUNT(AUTO) 2.66 MIL/uL (4.5-6.0)
[2018-12-21] MEDS ORDERED: ACETAMINOPHEN ES 500 MG TABLET ONE (22:36)
[2018-12-21 22:42] LABS: CALCIUM, SERUM 7.9 mg/dL (8.5-10.1); POTASSIUM 4.7 mmol/L (3.5-5.1)
[2018-12-21 22:53] LABS: ALBUMIN 2.7 g/dL (3.4-5.0); BILIRUBIN,DIRECT 0.7 mg/dL (0.0-0.2); BILIRUBIN,TOTAL 1.1 mg/dL (0.2-1.0)
[2018-12-21 22:54] LABS: PHOSPHORUS 7.6 mg/dL (2.5-4.9)
[2018-12-21 22:55] LABS: MAGNESIUM 2.2 mg/dL (1.8-2.4)
[2018-12-21] MEDS ORDERED: MEROPENEM 500 MG VIAL IV ONE (22:55)
[2018-12-21] MEDS ORDERED: WATER FOR INJECTION,STERILE 10 ML ONE (22:57)
[2018-12-21] MEDS ORDERED: MEROPENEM 500 MG in IV NS 0.9% 50 ML IV ONE (23:00)
[2018-12-21] MEDS ORDERED: ACETAMINOPHEN ES 500 MG TABLET PO ONE (23:00)
--- NOTE | 2018-12-21 23:00 | NUR ---
VERIFIED WITH THAT PT IS NOT GOING TO HAVE BLOOD CULTURE AND UA
--- NOTE | 2018-12-21 23:00 | NUR ---
Geovanna macdonald in [facility] - 12/22/18 at 0228 by CARRILLO VERIFIED WITH MD THAT PT IS NOT GOING TO HAVE BLOOD CULTURE AND UA
[2018-12-22 00:28] LABS: MONOCYTES % (MANUAL) 12 % (0-11.0)
[2018-12-22 00:29] LABS: LYMPHOCYTES % (MANUAL) 19 % (16-48); NEUTROPHILS % (MANUAL) 69 (42-76)
[2018-12-22] MEDS ORDERED: IV NS 0.9% 1,000 ML IV SCH (00:30)
[2018-12-22] MEDS ORDERED: ACETAMINOPHEN 325 MG TABLET PO PRN (00:30)
[2018-12-22] MEDS ORDERED: Z GUARD REMEDY 2 OZ OINT TP PRN (00:30)
[2018-12-22] MEDS ORDERED: ZOLPIDEM TARTRATE 5 MG TABLET PO PRN (00:30)
[2018-12-22] MEDS ORDERED: HYDROCODONE/APAP 5/325MG 1 EACH TABLET PO PRN (00:30)
[2018-12-22] MEDS ORDERED: MAG HYDROX/AL HYDROX/SIMETH 30 ML UDC PO PRN (00:30)
[2018-12-22] MEDS ORDERED: HYDROCODONE/APAP 10/325MG 1 EA TABLET PO ONE (00:30)
[2018-12-22] MEDS ORDERED: MAGNESIUM HYDROXIDE 30 ML UDC PO PRN (00:30)
[2018-12-22] MEDS ORDERED: ONDANSETRON HCL/PF 4 MG/2 ML VIAL IVP PRN (00:30)
--- NOTE | 2018-12-22 00:31 | NUR ---
BED ASSIGNMENT TELE [id number]
--- NOTE | 2018-12-22 00:57 | NUR ---
REPORT GIVEN TO YANNI HUNT FOR LYRIC.
[2018-12-22] MEDS ORDERED: VANCOMYCIN 1.25 GM in IV D5W 500 ML IV ONE (01:00)
[2018-12-22 01:35] LABS: ALBUMIN 2.7 g/dL (3.4-5.0); BILIRUBIN,DIRECT 0.7 mg/dL (0.0-0.2); BILIRUBIN,TOTAL 1.1 mg/dL (0.2-1.0); TOTAL PROTEIN, SERUM 7.2 g/dL (6.4-8.2)
--- NOTE | 2018-12-22 01:54 | NUR ---
PT BEING WHEELED TO UNIT WITH EMT AND RN AT BEDSIDE W/ ACLS PROTOCOL
[2018-12-22 02:00] VITALS: BP 161/44
--- NOTE | 2018-12-22 02:00 | NUR ---
RECEIVED PATIENT FROM ER FOR DX SEPSIS. AO X 3, ABLE TO MAKE NEED KNOWN. NO ACUTE DISTRESS NOTED. MONITORED FOR PAIN. IV SITE PATENT, INTACT; FLUSHED. PATIENT REFUSED SKIN CHECK. SAFETY REMINDERS GIVEN. ON LOW BED WITH BILATERAL UPPER SIDE RAILS UP. CALL AHN WITHIN EASY REACH. WILL CONTINUE TO MONITOR.
[2018-12-22 02:05] VITALS: BP 161/144
[2018-12-22] MEDS ORDERED: VANCOMYCIN 1 GM VIAL ONE (02:16)
--- NOTE | 2018-12-22 04:00 | NUR ---
DR. GARCIA MADE MADE AWARE THAT PATIENT DOES NOT WANT NORCO DUE TO ITCHINESS. PATIENT REFUSED BENADRYL. PATIENT WANTS DILAUDID IV PUSH. PER DR. GARCIA, NORCO WILL REMAIN ORDERED; NO DILAUDID IV PUSH. PATIENT MADE AWARE. PER PATIENT HE WILL LEAVE AMA LATER TODAY. HE WILL CALL HIS FRIEND TO PICK HIM UP. EDUCATION GIVEN TO PATIENT ON THE POSSIBLE RISKS OF LEAVING AMA. PATIENT STRONGLY STATED THAT HE WILL LEAVE DUE TO THE FACT THAT HE IS NOT GETTING DILAUDID. CHARGE NURSE MADE AWARE. WILL ENDORSE TO DAY SHIFT.
--- NOTE | 2018-12-22 04:30 | NUR ---
PATIENT REMOVED TELE MONITOR LEADS; REFUSES TO WEAR TELE MONITOR. EDUCATION GIVEN TO PATIENT ON BENEFIT OF TELE MONITORING. PATIENT STILL REFUSED.
[2018-12-22] MEDS ORDERED: MEROPENEM 500 MG in IV NS 0.9% 50 ML IV SCH ×2 (05:00→23:00)
--- NOTE | 2018-12-22 06:00 | NUR ---
PATIENT ASLEEP, EASILY AROUSABLE. RESPIRATIONS EVEN. NO SIGNS OF PAIN NOTED. DUE MED GIVEN WITH NO ASE NOTED. IVF INFUSING ORDERED. NEEDS ATTENDED. SAFETY REMINDERS AND COMFORT MEASURES IN PLACE. WILL GIVE REPORT TO DAY SHIFT FOR CONTINUITY OF CARE.
--- NOTE | 2018-12-22 07:15 | NUR ---
PATIENT NOT FOUND IN ROOM. ALL BELONGING GONE. IV PULLED OUT; HANGING ON IV TUBING. DAY SHIFT NURSE WITNESS. WILL NOTIFY CHARGE NURSE, HAUNTED HISTORY TOUR GUIDE AND MD.
[2018-12-22] MEDS ORDERED: CALCIUM ACETATE 667 MG TABLET PO SCH (08:00)
[2018-12-22] MEDS ORDERED: DULOXETINE HCL 30 MG CAPSULE.DR PO SCH (09:00)
[2018-12-22] MEDS ORDERED: VANCOMYCIN 500 MG in IV D5W 100 ML IV PRN (09:00)
[2018-12-22] MEDS ORDERED: APIXABAN 2.5 MG TABLET PO SCH (09:00)
[2018-12-22] MEDS ORDERED: CARVEDILOL 12.5 MG PO SCH (09:00)
[2018-12-22] MEDS ORDERED: FUROSEMIDE 40 MG TABLET PO SCH (09:00)
[2018-12-22] MEDS ORDERED: ASPIRIN EC 81 MG TABLET.DR PO SCH (09:00)
[2018-12-22] MEDS ORDERED: CARVEDILOL 12.5 MG TABLET PO SCH (09:00)
[2018-12-22] MEDS ORDERED: CHOLECALCIFEROL 1,000 UNIT TABLET (VIT D3) PO SCH (09:00)
--- NOTE | 2018-12-22 09:38 | NUR ---
rn notes informed dr villanueva that patient left [facility], without signing paperwork. iv removed before the left the hospital.
[2018-12-22] MEDS ORDERED: ATORVASTATIN 40 MG TABLET PO SCH (22:00)
== END 2018-12-22 07:00 | disposition left against medical advice (07) | DRG 720 ==
LOC: ER 21:42 → TELE 12-22 00:43
PROVIDERS: ADMIT Internal Medicine; ATTEND Internal Medicine
DX: A41.9 Sepsis, unspecified organism (principal); I13.2 Hypertensive heart and chronic kidney disease with heart failure and with stage 5 chronic kidney disease, or end stage renal disease; E11.22 Type 2 diabetes mellitus with diabetic chronic kidney disease; E11.42 Type 2 diabetes mellitus with diabetic polyneuropathy; I27.20 Pulmonary hypertension, unspecified; N18.6 End stage renal disease; I50.23 Acute on chronic systolic (congestive) heart failure; Z99.2 Dependence on renal dialysis; F17.210 Nicotine dependence, cigarettes, uncomplicated; E66.9 Obesity, unspecified; D63.8 Anemia in other chronic diseases classified elsewhere; Z68.33 Body mass index [BMI] 33.0-33.9, adult; Z91.19 Patient's noncompliance with other medical treatment and regimen; I70.0 Atherosclerosis of aorta; J44.9 Chronic obstructive pulmonary disease, unspecified; I48.2 Chronic atrial fibrillation; I25.10 Atherosclerotic heart disease of native coronary artery without angina pectoris; H10.9 Unspecified conjunctivitis; S70.02XA Contusion of left hip, initial encounter; X58.XXXA Exposure to other specified factors, initial encounter; Y93.9 Activity, unspecified; Y92.009 Unspecified place in unspecified non-institutional (private) residence as the place of occurrence of the external cause; Z79.01 Long term (current) use of anticoagulants; H54.61 Unqualified visual loss, right eye, normal vision left eye
CPT/HCPCS: 36415; 71045-TC; 80048-TC; 80076-TC; 83605-TC; 83735-TC; 83880; 84100-TC; 84484-TC; 85025-TC; 85730-TC; 87081-TC; A4216; G0378; J2185; J3370; J7030; J7060